=== PATIENT | male | born 1985 | race Caucasian/White ===

== ENCOUNTER 2017-03-05 15:06 | Emergency (ER) | payer SELFPAY ==
[2017-03-05 15:19] VITALS: BP 141/84; PULSE 114; RESP 17; TEMP 98.7
--- NOTE | 2017-03-05 15:52 | ED ---
ENT HPI - General Chief complaint: Dental/Oral Stated complaint: Dental Time Seen by Provider: 03/05/17 15:49 Source: patient, RN notes reviewed Mode of arrival: ambulatory Limitations: no limitations - History of Present Illness Initial comments: 31-year-old male present emergency department with chief complaint of dental pain. Patient states that he is up visiting his mother and had dental fracture. Patient states that he has an appointment with [facility] on Saturday. Patient denies any fevers or chills. No facial swelling. Patient has a sore throat no difficulty swallowing. - Related Data Home Medications Medication Instructions Recorded Confirmed Insulin Aspart [NovoLOG] 8 - 16 unit SQ TID 03/05/17 03/05/17 Insulin Degludec [Tresiba 28 unit SQ HS 03/05/17 03/05/17 Flextouch U-100] Previous Rx's Medication Instructions Recorded Hydrocodone/Acetaminophen [[place] 1 tab PO Q6HR PRN #15 tab 03/05/17 5-325] Penicillin V Potassium [Pen Vee K] 500 mg PO QID #40 tab 03/05/17 Allergies Allergy/AdvReac Type Severity Reaction Status Date / Time morphine Allergy Rash/Hives Verified 03/05/17 15:19 rofecoxib [From Vioxx] Allergy Unknown Verified 03/05/17 15:19 Review of Systems ROS Statement: Those systems with pertinent positive or pertinent negative responses have been documented in the HPI. ROS Other: All systems not noted in ROS Statement are negative. Past Medical History Past Medical History: Diabetes Mellitus Additional Past Medical History / Comment(s): type 1 History of Any Multi-Drug Resistant Organisms: None Reported Past Surgical History: Orthopedic Surgery Additional Past Surgical History / Comment(s): left knee Past Psychological History: No Psychological Hx Reported Smoking Status: Never smoker Past Alcohol Use History: None Reported Past Drug Use History: Marijuana General Exam Limitations: no limitations General appearance: alert, in no apparent distress Head exam: Present: atraumatic, normocephalic, normal inspection Eye exam: Present: normal appearance, PERRL, EOMI. Absent: scleral icterus, conjunctival injection, periorbital swelling ENT exam: Present: mucous membranes moist. Absent: normal exam, normal oropharynx (Dental fracture #2) Neck exam: Present: normal inspection. Absent: tenderness, meningismus, lymphadenopathy Respiratory exam: Present: normal lung sounds bilaterally. Absent: respiratory distress, wheezes, rales, rhonchi, stridor Cardiovascular Exam: Present: regular rate, normal rhythm, normal heart sounds. Absent: systolic murmur, diastolic murmur, rubs, gallop, clicks Course Vital Signs 03/05/17 15:16 Temperature 98.7 F Pulse Rate 114 H Respiratory 17 Rate Blood Pressure 141/84 O2 Sat by Pulse 97 Oximetry Disposition Clinical Impression: Fracture of tooth, Toothache Disposition: HOME SELF-CARE Condition: Stable Instructions: Toothache (ED) Additional Instructions: Please return to the Emergency Department if symptoms worsen or any other concerns. Prescriptions: Hydrocodone/Acetaminophen [[place] 5-325] 1 tab PO Q6HR PRN #15 tab PRN Reason: Pain Penicillin V Potassium [Pen Vee K] 500 mg PO QID #40 tab Referrals: None,Stated [Primary Care Provider] - 1-2 days Time of Disposition: 15:52
== END 2017-03-05 16:06 | disposition home or self-care (01) ==
LOC: EC 15:06
DX: S02.5XXA Fracture of tooth (traumatic), initial encounter for closed fracture (principal); E11.9 Type 2 diabetes mellitus without complications; Z79.4 Long term (current) use of insulin; Z88.5 Allergy status to narcotic agent; Z88.8 Allergy status to other drugs, medicaments and biological substances; X58.XXXA Exposure to other specified factors, initial encounter
CPT/HCPCS: 99282

== ENCOUNTER 2017-03-21 11:58 | Emergency (ER) | payer OTHER ==
[2017-03-21] MEDS ORDERED: SODIUM CHLORIDE 0.9% 1,000 ML IV STA ×2 (12:15)
--- NOTE | 2017-03-21 12:24 | ED ---
General Adult HPI - General Chief complaint: Urogenital Stated complaint: MALE Time Seen by Provider: 03/21/17 12:09 Source: patient, RN notes reviewed Mode of arrival: ambulatory Limitations: no limitations - History of Present Illness Initial comments: Patient is a 31-year-old male who presents emergency room today with a chief complaint of left-sided testicular pain over the last 3 days. Patient states he did have epididymitis once in the past but this does not feel similar to him. He states this started slowly and has gotten worse the last 2 days. States it was keeping him up last night. Patient admits that it is worse with certain movements and palpation. He also admits to being type I diabetic and states he did have some episodes of nausea vomiting is noticed that his blood sugar has been running high grade 400 this morning. Patient denies any other complaints at this time. He denies any chance for STD as he states he was tested 6 months ago was not having any sexual contacts since. Patient denies any recent fever, chills, shortness of breath, chest pain, back pain, abdominal pain, nausea or vomiting, numbness or tingling, dysuria or hematuria, constipation or diarrhea, headaches or visual changes, or any other complaints. - Related Data Home Medications Medication Instructions Recorded Confirmed Insulin Aspart [NovoLOG] See Protocol SQ TID 03/05/17 03/21/17 Insulin Degludec [Tresiba 28 unit SQ HS 03/05/17 03/21/17 Flextouch U-100] Acetaminophen Tab [Tylenol Tab] 325 mg PO ONCE 03/21/17 03/21/17 Ibuprofen [Motrin] 400 mg PO ONCE PRN 03/21/17 03/21/17 Zolpidem [Ambien] 10 mg PO HS PRN 03/21/17 03/21/17 Allergies Allergy/AdvReac Type Severity Reaction Status Date / Time morphine Allergy Rash/Hives Verified 03/21/17 12:56 rofecoxib [From Vioxx] Allergy Unknown Verified 03/21/17 12:56 acetaminophen AdvReac Rash/Hives Verified 03/21/17 12:56 [From Tylenol-Codeine #3] codeine AdvReac Rash/Hives Verified 03/21/17 12:56 [From Tylenol-Codeine #3] Review of Systems ROS Statement: Those systems with pertinent positive or pertinent negative responses have been documented in the HPI. ROS Other: All systems not noted in ROS Statement are negative. Past Medical History Past Medical History: Diabetes Mellitus Additional Past Medical History / Comment(s): type 1 History of Any Multi-Drug Resistant Organisms: None Reported Past Surgical History: Cholecystectomy, Orthopedic Surgery Additional Past Surgical History / Comment(s): left knee Past Psychological History: No Psychological Hx Reported Smoking Status: Never smoker Past Alcohol Use History: None Reported Past Drug Use History: Marijuana General Exam - General Exam Comments Initial Comments: General: The patient is awake and alert, in no distress, and does not appear acutely ill. Eye: Pupils are equal, round and reactive to light, extra-ocular movements are intact. No nystagmus. There is normal conjunctiva bilaterally. No signs of icterus. Ears, nose, mouth and throat: There are moist mucous membranes and no oral lesions. Neck: The neck is supple, there is no tenderness or JVD. Cardiovascular: There is a regular rate and rhythm. No murmur, rub or gallop is appreciated. Respiratory: Lungs are clear to auscultation, respirations are non-labored, breath sounds are equal. No wheezes, stridor, rales, or rhonchi. Gastrointestinal: Soft, non-distended, non-tender abdomen without masses or organomegaly noted. There is no rebound or guarding present. No CVA tenderness. Bowel sounds are unremarkable. Musculoskeletal: Normal ROM, no tenderness. Strength 5/5. Sensation intact. Pulses equal bilaterally 2+. Neurological: A&O x 3. CN II-XII intact, There are no obvious motor or sensory deficits. Coordination appears grossly intact. Speech is normal. Skin: Skin is warm and dry and no rashes or lesions are noted. Psychiatric: Cooperative, appropriate mood & affect, normal judgment. : Circumcised male. No obvious swelling. Tender on palpation to the left testicle. Negative Prehn's sign. Limitations: no limitations Course Vital Signs 03/21/17 03/21/17 03/21/17 12:04 13:00 14:06 Temperature 97.6 F Pulse Rate 110 H 88 77 Respiratory 18 20 18 Rate Blood Pressure 136/78 125/72 120/76 O2 Sat by Pulse 98 95 Oximetry Medical Decision Making - Medical Decision Making Patient reexamined at this time shows no signs of distress. His ultrasound is positive for hydrocele and varicocele. No evidence of torsion. Results were discussed with the patient. He denies any chance of having STD. Patient's blood work reviewed as stones negative. Patient did take his insulin prior to arrival in his blood sugar at this time is 92. Patient is advised continue Tylenol Motrin for pain and advised to follow-up with urology. Advised return if symptoms increase or worsen or for any other concerns. - Lab Data Result diagrams: 03/21/17 12:43 03/21/17 12:43 Lab Results 03/21/17 03/21/17 03/21/17 Range/Units 12:26 12:43 12:43 WBC 5.2 (3.8-10.6) k/uL RBC 4.91 (4.30-5.90) m/uL Hgb 14.3 (13.0-17.5) gm/dL Hct 44.9 (39.0-53.0) % MCV 91.5 (80.0-100.0) fL MCH 29.2 (25.0-35.0) pg MCHC 31.9 (31.0-37.0) g/dL RDW 13.4 (11.5-15.5) % Plt Count 250 (150-450) k/uL Neutrophils % 59 % Lymphocytes % 31 % Monocytes % 4 % Eosinophils % 3 % Basophils % 1 % Neutrophils # 3.1 (1.3-7.7) k/uL Lymphocytes # 1.6 (1.0-4.8) k/uL Monocytes # 0.2 (0-1.0) k/uL Eosinophils # 0.2 (0-0.7) k/uL Basophils # 0.0 (0-0.2) k/uL Sodium 135 L (137-145) mmol/L Potassium 4.8 (3.5-5.1) mmol/L Chloride 102 (98-107) mmol/L Carbon Dioxide 21 L (22-30) mmol/L Anion Gap 12 mmol/L BUN 14 (9-20) mg/dL Creatinine 0.76 (0.66-1.25) mg/dL Est GFR (MDRD) Af Amer >60 (>60 ml/min/1.73 sqM) Est GFR (MDRD) Non-Af >60 (>60 ml/min/1.73 sqM) Glucose 399 H (74-99) mg/dL POC Glucose (mg/dL) 392 H (75-99) mg/dL POC Glu Coal Handler ID Aby Trejo Calcium 9.6 (8.4-10.2) mg/dL Total Bilirubin 0.8 (0.2-1.3) mg/dL AST 25 (17-59) U/L ALT 23 (21-72) U/L Alkaline Phosphatase 82 (38-126) U/L Total Protein 7.2 (6.3-8.2) g/dL Albumin 4.3 (3.5-5.0) g/dL Urine Color Urine Appearance (Clear) Urine pH (5.0-8.0) Ur Specific [place] (1.001-1.035) Urine Protein (Negative) Urine Glucose (UA) (Negative) Urine Ketones (Negative) Urine Blood (Negative) Urine Nitrite (Negative) Urine Bilirubin (Negative) Urine Urobilinogen (<2.0) mg/dL Ur Leukocyte Esterase (Negative) Acetone, Qual Negative (Negative) 03/21/17 03/21/17 Range/Units 14:15 14:27 WBC (3.8-10.6) k/uL RBC (4.30-5.90) m/uL Hgb (13.0-17.5) gm/dL Hct (39.0-53.0) % MCV (80.0-100.0) fL MCH (25.0-35.0) pg MCHC (31.0-37.0) g/dL RDW (11.5-15.5) % Plt Count (150-450) k/uL Neutrophils % % Lymphocytes % % Monocytes % % Eosinophils % % Basophils % % Neutrophils # (1.3-7.7) k/uL Lymphocytes # (1.0-4.8) k/uL Monocytes # (0-1.0) k/uL Eosinophils # (0-0.7) k/uL Basophils # (0-0.2) k/uL Sodium (137-145) mmol/L Potassium (3.5-5.1) mmol/L Chloride (98-107) mmol/L Carbon Dioxide (22-30) mmol/L Anion Gap mmol/L BUN (9-20) mg/dL Creatinine (0.66-1.25) mg/dL Est GFR (MDRD) Af Amer (>60 ml/min/1.73 sqM) Est GFR (MDRD) Non-Af (>60 ml/min/1.73 sqM) Glucose (74-99) mg/dL POC Glucose (mg/dL) 92 (75-99) mg/dL POC Glu Coal Handler ID Diane Ng Calcium (8.4-10.2) mg/dL Total Bilirubin (0.2-1.3) mg/dL AST (17-59) U/L ALT (21-72) U/L Alkaline Phosphatase (38-126) U/L Total Protein (6.3-8.2) g/dL Albumin (3.5-5.0) g/dL Urine Color Light Yellow Urine Appearance Clear (Clear) Urine pH 5.5 (5.0-8.0) Ur Specific [place] 1.017 (1.001-1.035) Urine Protein Negative (Negative) Urine Glucose (UA) 4+ H (Negative) Urine Ketones Negative (Negative) Urine Blood Negative (Negative) Urine Nitrite Negative (Negative) Urine Bilirubin Negative (Negative) Urine Urobilinogen <2.0 (<2.0) mg/dL Ur Leukocyte Esterase Negative (Negative) Acetone, Qual (Negative) Disposition Clinical Impression: Abdominal pain Disposition: HOME SELF-CARE Condition: Good Instructions: Abdominal Pain (ED) Additional Instructions: Please use medication as discussed. Please follow-up with urologist/ family doctor in the next 2 days of symptoms have not improved. Please return to emergency room if the symptoms increase or worsen or for any other concerns. Referrals: None,Stated [Primary Care Provider] - 1-2 days Mumtaz Ambriz MD [STAFF PHYSICIAN] - 1-2 days Time of Disposition: 14:56
[2017-03-21 12:29] LABS: Glucose,Whole Blood 392 mg/dL (75-99)
[2017-03-21] MEDS ORDERED: HYDROmorphone 1 MG/ML 1 ML SYRINGE IVP STA (12:47)
[2017-03-21] MEDS ORDERED: ONDANSETRON 4 MG/2 ML VIAL IVP STA (12:47)
[2017-03-21 12:56] LABS: Basophils % (A) 1 %; CH 29.4; CHCM 32.3; Eosinophils # (A) 0.2 k/uL (0-0.7); Eosinophils % (A) 3 %; HCT 44.9 % (39.0-53.0); HGB 14.3 gm/dL (13.0-17.5); Luc # (Auto) 0.09; Luc % (Auto) 2; Lymphocytes # (A) 1.6 k/uL (1.0-4.8); Lymphocytes % (A) 31 %; MCH 29.2 pg (25.0-35.0); MCHC 31.9 g/dL (31.0-37.0); MCV 91.5 fL (80.0-100.0); Monocytes # (A) 0.2 k/uL (0-1.0); Monocytes % (A) 4 %; Neutrophils # (A) 3.1 k/uL (1.3-7.7); Neutrophils % (A) 59 %; RBC 4.91 m/uL (4.30-5.90); RDW 13.4 % (11.5-15.5); WBC 5.2 k/uL (3.8-10.6); WBC (Perox) 5.43
[2017-03-21 13:10] LABS: ALT 23 U/L (21-72); AST 25 U/L (17-59); Alkaline Phosphatase 82 U/L (38-126); Anion Gap 12 mmol/L; Blood Urea Nitrogen 14 mg/dL (9-20); Calcium 9.6 mg/dL (8.4-10.2); Carbon Dioxide 21 mmol/L (22-30); Chloride 102 mmol/L (98-107); Glucose 399 mg/dL (74-99); Non-African American GFR(MDRD) >60 (>60 ml/min/1.73 sqM); Potassium 4.8 mmol/L (3.5-5.1); Sodium 135 mmol/L (137-145); Total Bilirubin 0.8 mg/dL (0.2-1.3); Total Protein 7.2 g/dL (6.3-8.2)
--- NOTE | 2017-03-21 14:06 | US ---
EXAMINATION TYPE: US scrotum with doppler. Grayscale and color Doppler Duplex imaging performed of george snow scrotum. DATE OF EXAM: 03/21/2017 COMPARISON: NONE CLINICAL HISTORY: Pain. EXAM MEASUREMENTS: TESTICLES: Right Testicle: 4.8 x 2.5 x 3.3 cm Left Testicle: 4.7 x 2.6 x 3 cm EPIDIDYMIS HEAD: Right Epididymis: 1.3 cm Left Epididymis: 1.6 cm Doppler performed to assess for testicular vascularity; good bilateral color flow and waveforms are s een. There is no evidence of testicular torsion. Presence of hydroceles: Minimal bilateral hydroceles Presence of varicoceles: Minimal varicocele on the left at the lower pole Testicular echotexture is homogenous and symmetric. IMPRESSION: Testicular torsion is not evident. Follow-up as indicated.
[2017-03-21] MEDS ORDERED: KETOROLAC 30 MG/ML 1 ML VIAL IVP STA (14:23)
[2017-03-21 14:26] LABS: Appearance,Urine Clear (Clear); Bilirubin,Urine Negative (Negative); Glucose,Urine (UA) 4+ (Negative); Ketones,Urine Negative (Negative); Leukocyte Esterase,Urine Negative (Negative); Nitrite,Urine Negative (Negative); PH, Urine 5.5 (5.0-8.0); Protein,Urine Negative (Negative); Specific Gravity,Urine 1.017 (1.001-1.035); UA Billing (MACRO vs. MICRO) CHEM; Urobilinogen,Urine <2.0 mg/dL (<2.0)
[2017-03-21 14:32] LABS: Glucose,Whole Blood 92 mg/dL (75-99)
[2017-03-21 15:16] VITALS: TEMP 97.9
[2017-03-21 15:25] VITALS: BP 111/64; PULSE 73; RESP 16
== END 2017-03-21 15:26 | disposition home or self-care (01) ==
LOC: EC 11:58
DX: R10.9 Unspecified abdominal pain (principal); N50.812 Left testicular pain; R11.2 Nausea with vomiting, unspecified; E10.9 Type 1 diabetes mellitus without complications; Z79.4 Long term (current) use of insulin; Z88.5 Allergy status to narcotic agent; Z88.6 Allergy status to analgesic agent
CPT/HCPCS: 99284; 96374; 96375 ×2; 96361 ×3; 36415; 80053; 82009; 85025; 81003; 93975; 76870; J2405; J1885; J1170

== ENCOUNTER 2017-04-17 15:54 | Emergency (ER) | payer OTHER ==
[2017-04-17] MEDS ORDERED: METOCLOPRAMIDE 5 MG/ML 2 ML VIAL IVP STA (16:16)
[2017-04-17] MEDS ORDERED: SODIUM CHLORIDE 0.9% 1,000 ML IV STA (16:16)
[2017-04-17] MEDS ORDERED: KETOROLAC 30 MG/ML 1 ML VIAL IVP STA (16:16)
[2017-04-17] MEDS ORDERED: diphenhydrAMINE 50 MG/ML 1 ML VIAL IVP STA (16:16)
[2017-04-17 16:31] LABS: Glucose,Whole Blood 294 mg/dL (75-99)
[2017-04-17 16:51] VITALS: RESP 16
[2017-04-17 16:54] LABS: Basophils % (A) 1 %; CH 29.8; CHCM 33.8; Eosinophils # (A) 0.1 k/uL (0-0.7); Eosinophils % (A) 2 %; HCT 42.2 % (39.0-53.0); HDW 2.47; HGB 13.9 gm/dL (13.0-17.5); Luc # (Auto) 0.16; Luc % (Auto) 2; Lymphocytes % (A) 26 %; MCH 29.2 pg (25.0-35.0); MCV 88.6 fL (80.0-100.0); Monocytes # (A) 0.3 k/uL (0-1.0); Monocytes % (A) 4 %; Neutrophils % (A) 66 %; RBC 4.76 m/uL (4.30-5.90); RDW 13.8 % (11.5-15.5); WBC 7.6 k/uL (3.8-10.6); WBC (Perox) 7.35
[2017-04-17 17:00] LABS: Anion Gap 12 mmol/L; Blood Urea Nitrogen 16 mg/dL (9-20); Calcium 9.7 mg/dL (8.4-10.2); Carbon Dioxide 22 mmol/L (22-30); Chloride 104 mmol/L (98-107); Glucose 295 mg/dL (74-99); Magnesium 1.8 mg/dL (1.6-2.3); Non-African American GFR(MDRD) >60 (>60 ml/min/1.73 sqM); Potassium 4.8 mmol/L (3.5-5.1); Sodium 138 mmol/L (137-145)
[2017-04-17] MEDS ORDERED: MAGNESIUM SULFATE-D5W PMX 1 GM in DEXTROSE/WATER 1 100ML.BAG IVPB ONE (17:42)
--- NOTE | 2017-04-17 17:55 | ED ---
General Adult HPI - General Chief complaint: Headache Stated complaint: Headache Time Seen by Provider: 04/17/17 16:03 Source: patient, RN notes reviewed, old records reviewed Mode of arrival: ambulatory Limitations: no limitations - History of Present Illness Initial comments: 32 -year-old male with past medical history type 1 diabetes presents with a two- week history of headache. Patient describes the headache as throbbing in nature. Headache is frontal 8 out of 10. Patient did have a tooth pulled approximately 2 weeks ago on his lower jaw. Denies any change in appetite. Does report some mild nausea and dizziness but no vomiting. No photophobia. Patient woke with headache 2 weeks ago. It was gradual in onset. Has been waxing and waning since that time. Patient also reports some mild seasonal ALLERGIES which she also attributes to his headache. His been taking Tylenol and Motrin with minimal relief. Denies fever or chills. Denies chest pain or shortness of breath. Denies any head trauma. - Related Data Home Medications Medication Instructions Recorded Confirmed Insulin Aspart [NovoLOG] See Protocol SQ TID 03/05/17 04/17/17 Zolpidem [Ambien] 10 mg PO HS PRN 03/21/17 04/17/17 Insulin Glargine,Hum.rec.anlog 30 unit SQ HS 04/17/17 04/17/17 [Lantus Solostar] Previous Rx's Medication Instructions Recorded HYDROcodone/APAP 5-325MG [[place] 1 tab PO Q6HR PRN #12 tab 04/17/17 5-325] Ibuprofen [Motrin] 600 mg PO Q8HR PRN #24 tab 04/17/17 Allergies Allergy/AdvReac Type Severity Reaction Status Date / Time morphine Allergy Rash/Hives Verified 04/17/17 15:58 rofecoxib [From Vioxx] Allergy Unknown Verified 04/17/17 15:58 acetaminophen AdvReac Rash/Hives Verified 04/17/17 15:58 [From Tylenol-Codeine #3] codeine AdvReac Rash/Hives Verified 04/17/17 15:58 [From Tylenol-Codeine #3] Review of Systems ROS Statement: Those systems with pertinent positive or pertinent negative responses have been documented in the HPI. ROS Other: All systems not noted in ROS Statement are negative. Eyes: Denies: vision change ENT: Reports: dental pain (Patient had left lower tooth extraction approximately 2 weeks.) Respiratory: Denies: cough Cardiovascular: Denies: chest pain Gastrointestinal: Reports: nausea. Denies: vomiting Neurological: Reports: headache. Denies: paresthesias Past Medical History Past Medical History: Diabetes Mellitus Additional Past Medical History / Comment(s): type 1 History of Any Multi-Drug Resistant Organisms: None Reported Past Surgical History: Cholecystectomy, Orthopedic Surgery Additional Past Surgical History / Comment(s): left knee Past Psychological History: No Psychological Hx Reported Smoking Status: Never smoker Past Alcohol Use History: None Reported Past Drug Use History: Marijuana General Exam Limitations: no limitations General appearance: alert, in no apparent distress Head exam: Present: atraumatic, normocephalic, normal inspection Eye exam: Present: normal appearance, PERRL, EOMI, other. Absent: scleral icterus, nystagmus Pupils: Present: normal accommodation ENT exam: Present: normal exam, mucous membranes dry Neck exam: Present: full ROM. Absent: meningismus Respiratory exam: Present: normal lung sounds bilaterally. Absent: respiratory distress, wheezes Cardiovascular Exam: Present: regular rate, normal rhythm GI/Abdominal exam: Present: soft. Absent: distended, tenderness Neurological exam: Present: alert, oriented X3, CN II-XII intact, other (No focal neurological deficits. Funduscopic examination is negative for papilledema). Absent: motor sensory deficit Psychiatric exam: Present: normal affect, normal mood Skin exam: Present: warm, dry Course Vital Signs 04/17/17 04/17/17 15:55 16:49 Temperature 98.4 F Pulse Rate 91 71 Respiratory 18 16 Rate Blood Pressure 120/75 129/77 O2 Sat by Pulse 97 98 Oximetry - Reevaluation(s) Reevaluation #1: 04/17/17 17:49 Patient was reevaluated at 1740. He states his headache is somewhat improved however it is still present. Only mild improvement in symptoms and two-week duration CT head is ordered for further evaluation of headaches. Reevaluation #2: 04/17/17 19:05 Patient is reevaluated at 1905, head CT results were discussed with the patient. He is feeling somewhat better. Medical Decision Making - Medical Decision Making 32-year-old male with past medical history of type 1 diabetes presenting with history of headache. Patient's headache has been waxing and waning over the past 2 weeks but has never been completely resolved. Patient reports a gradual onset in intensity. It is frontal in nature and throbbing. He does have a positive family history of migraines but has never been diagnosed with migraines himself. He has had occasional headaches in the past but this was worse and lasted longer than those headaches. Patient is very well-appearing on examination, neurological examination is nonfocal. He is given IV antibiotics, Benadryl, Toradol and IV fluids. On reevaluation his headache is somewhat improved although not completely resolved. Laboratory studies are reviewed and are significant only for mild hyperglycemia which is treated with IV fluids. Head CT is negative for intracranial process. Patient will be given both a primary care and neurology follow-up. He is instructed to return the emergency Department with worsening symptoms, including worsening nausea and vomiting, photophobia, sudden abrupt change in his headache. Diagnosis: Headache Disposition: Home with outpatient follow-up - Lab Data Result diagrams: 04/17/17 16:30 04/17/17 16:30 Lab Results 04/17/17 04/17/17 04/17/17 Range/Units 16:25 16:30 16:30 WBC 7.6 (3.8-10.6) k/uL RBC 4.76 (4.30-5.90) m/uL Hgb 13.9 (13.0-17.5) gm/dL Hct 42.2 (39.0-53.0) % MCV 88.6 (80.0-100.0) fL MCH 29.2 (25.0-35.0) pg MCHC 33.0 (31.0-37.0) g/dL RDW 13.8 (11.5-15.5) % Plt Count 266 (150-450) k/uL Neutrophils % 66 % Lymphocytes % 26 % Monocytes % 4 % Eosinophils % 2 % Basophils % 1 % Neutrophils # 5.0 (1.3-7.7) k/uL Lymphocytes # 2.0 (1.0-4.8) k/uL Monocytes # 0.3 (0-1.0) k/uL Eosinophils # 0.1 (0-0.7) k/uL Basophils # 0.0 (0-0.2) k/uL Sodium 138 (137-145) mmol/L Potassium 4.8 (3.5-5.1) mmol/L Chloride 104 (98-107) mmol/L Carbon Dioxide 22 (22-30) mmol/L Anion Gap 12 mmol/L BUN 16 (9-20) mg/dL Creatinine 0.70 (0.66-1.25) mg/dL Est GFR (MDRD) Af Amer >60 (>60 ml/min/1.73 sqM) Est GFR (MDRD) Non-Af >60 (>60 ml/min/1.73 sqM) Glucose 295 H (74-99) mg/dL POC Glucose (mg/dL) 294 H (75-99) mg/dL POC Glu Internal Audit Consultant ID Kaitlyn Donohue Calcium 9.7 (8.4-10.2) mg/dL Magnesium 1.8 (1.6-2.3) mg/dL Disposition Clinical Impression: Headache Disposition: HOME SELF-CARE Condition: Good Instructions: Acute Headache (ED) Additional Instructions: Patient will return to the emergency department with worsening symptoms. Prescriptions: HYDROcodone/APAP 5-325MG [[place] 5-325] 1 tab PO Q6HR PRN #12 tab PRN Reason: Pain Ibuprofen [Motrin] 600 mg PO Q8HR PRN #24 tab PRN Reason: Pain Referrals: None,Stated [Primary Care Provider] - 1-2 days Kristel Tejada MD [STAFF PHYSICIAN] - 1-2 days Nikole Tan MD [STAFF PHYSICIAN] - 1-2 days Time of Disposition: 19:00
--- NOTE | 2017-04-17 18:13 | CT ---
EXAMINATION TYPE: CT brain wo con DATE OF EXAM: 04/17/2017 COMPARISON: NONE HISTORY: Patient complains of headache x3 weeks. CT DLP: 1121 mGycm. Automated Exposure Control for Dose Reduction was Utilized. TECHNIQUE: CT scan of the head is performed without contrast. FINDINGS: The ventricles and sulci appear normal. There is no mass effect nor midline shift. There is no sign of intracranial hemorrhage. The calvarium is intact. IMPRESSION: Negative unenhanced head CT scan.
[2017-04-17 19:13] VITALS: BP 132/72; PULSE 73; TEMP 98.2
== END 2017-04-17 19:42 | disposition home or self-care (01) ==
LOC: EC 15:54
DX: E10.65 Type 1 diabetes mellitus with hyperglycemia (principal); R11.0 Nausea; R51 Headache; R42 Dizziness and giddiness; Z79.4 Long term (current) use of insulin; Z88.5 Allergy status to narcotic agent; Z88.8 Allergy status to other drugs, medicaments and biological substances; Z82.0 Family history of epilepsy and other diseases of the nervous system
CPT/HCPCS: 99284 ×2; 96365 ×2; 96375 ×4; 96361 ×3; 36415; 80048; 83735; 85025; 70450; J1200; J2765; J1885; J3475

== ENCOUNTER 2017-04-18 14:11 | Inpatient (IN) | payer OTHER ==
[2017-04-18 16:02] LABS: Glucose,Whole Blood >600 mg/dL (75-99)
[2017-04-18] MEDS ORDERED: KETOROLAC 30 MG/ML 1 ML VIAL IVP STA (16:03)
[2017-04-18] MEDS ORDERED: SODIUM CHLORIDE 0.9% 2,000 ML IV STA (16:03)
[2017-04-18] MEDS ORDERED: PROMETHAZINE INJ 25 MG/ML 1 ML VIAL IV STA (16:03)
--- NOTE | 2017-04-18 16:38 | ED ---
General Adult HPI - General Source: patient, RN notes reviewed Mode of arrival: ambulatory Limitations: no limitations <Kaela Rivera - Last Filed: 04/18/17 18:43> <Rich Saenz - Last Filed: 04/18/17 18:45> - General Chief complaint: Recheck/Abnormal Lab/Rx Stated complaint: Blood Suger High/Diabetic/vomiting Time Seen by Provider: 04/18/17 15:54 - History of Present Illness Initial comments: 32-year-old male presents to the emergency department with a chief complaint of hyperglycemia. At this time patient states that he was here last night for headache. Patient states that today he woke up and started vomiting and he has noticed elevated glucose levels. Patient denies any fever chills with this. Patient states that his sugar has been high the rest the days and unable to control it. Patient states type I diabetic. Patient states that he was concerned due to his symptoms without that he should be evaluated. Patient states headache is in the front of his head and throbbing.Patient denies any recent fever, chills, shortness of breath, chest pain, back pain, abdominal pain , numbness or tingling, dysuria or hematuria, constipation or diarrhea, visual changes, or any other current symptoms. (Kaela Rivera) - Related Data Home Medications Medication Instructions Recorded Confirmed Insulin Aspart [NovoLOG] See Protocol SQ TID 03/05/17 04/18/17 Zolpidem [Ambien] 10 mg PO HS PRN 03/21/17 04/18/17 Insulin Glargine,Hum.rec.anlog 30 unit SQ HS 04/17/17 04/18/17 [Lantus Solostar] Previous Rx's Medication Instructions Recorded HYDROcodone/APAP 5-325MG [[place] 1 tab PO Q6HR PRN #12 tab 04/17/17 5-325] Ibuprofen [Motrin] 600 mg PO Q8HR PRN #24 tab 04/17/17 Allergies Allergy/AdvReac Type Severity Reaction Status Date / Time morphine Allergy Rash/Hives Verified 04/18/17 15:06 rofecoxib [From Vioxx] Allergy Unknown Verified 04/18/17 15:06 acetaminophen AdvReac Rash/Hives Verified 04/18/17 15:06 [From Tylenol-Codeine #3] codeine AdvReac Rash/Hives Verified 04/18/17 15:06 [From Tylenol-Codeine #3] Review of Systems ROS Other: All systems not noted in ROS Statement are negative. <Kaela Rivera - Last Filed: 04/18/17 18:43> ROS Other: All systems not noted in ROS Statement are negative. <Rich Saenz - Last Filed: 04/18/17 18:45> ROS Statement: Those systems with pertinent positive or pertinent negative responses have been documented in the HPI. Past Medical History Past Medical History: Diabetes Mellitus Additional Past Medical History / Comment(s): type 1 History of Any Multi-Drug Resistant Organisms: None Reported Past Surgical History: Cholecystectomy, Orthopedic Surgery Additional Past Surgical History / Comment(s): left knee x6 Past Psychological History: No Psychological Hx Reported Smoking Status: Never smoker Past Alcohol Use History: None Reported Past Drug Use History: Marijuana <Kaela Rivera - Last Filed: 04/18/17 18:43> General Exam Limitations: no limitations <Kaela Rivera - Last Filed: 04/18/17 18:43> <Rich Saenz - Last Filed: 04/18/17 18:45> - General Exam Comments Initial Comments: General: The patient is awake and alert, in no distress, and does not appear acutely ill. Eye: Pupils are equal, round and reactive to light, extra-ocular movements are intact; there is normal conjunctiva bilaterally. No signs of icterus. Ears, nose, mouth and throat: There are moist mucous membranes. Neck: The neck is supple, there is no tenderness. Cardiovascular: There is a regular rate and rhythm. No murmur, rub or gallop is appreciated. Respiratory: Lungs are clear to auscultation, respirations are non-labored, breath sounds are equal. No wheezes, stridor, rales, or rhonchi. Gastrointestinal: Soft, non-distended, non-tender abdomen without masses or organomegaly noted. There is no rebound or guarding present. No CVA tenderness. Bowel sounds are unremarkable. Back: There is no tenderness to palpation in the midline. There is no obvious deformity. No rashes noted. Musculoskeletal: Normal ROM, no tenderness, There is no pedal edema. There is no calf tenderness or swelling. Sensation intact. Pulses equal bilaterally 2+. Neurological: CN II-XII intact, There are no obvious motor or sensory deficits. Coordination appears grossly intact. Speech is normal. Skin: Skin is warm and dry and no rashes or lesions are noted. Psychiatric: Cooperative, appropriate mood & affect, normal judgment. (Kaela Rivera) EKG Findings - EKG Comments: EKG Findings:: Sinus bradycardia with sinus arrhythmia 59 bpm, normal axis, no atopy, no S-T depressions or elevations, <Kaela Rivera - Last Filed: 04/18/17 18:43> Medical Decision Making - Lab Data Result diagrams: 04/18/17 16:15 04/18/17 18:05 <Kaela Rivera - Last Filed: 04/18/17 18:43> - Lab Data Result diagrams: 04/18/17 16:15 04/18/17 18:05 <Rich Saenz - Last Filed: 04/18/17 18:45> - Medical Decision Making 32-year-old male presents emergency Department chief complaint of hyperglycemia. This time patient's blood work has been reviewed. Patient is found to be hyperkalemic at this time which is most likely due to the fact that it was hemolyzed. We will send a repeat. This time patient does appear to be in DKA we will start patient on an insulin drip. We did discuss this with the patient who is in agreement with this plan. All questions have been answered. He will be admitted to Dr. Whalen. After discussing the case with the nurse practitioner miri. (Kaela Rivera) Patient reexamined by myself, Dr. Saenz. Patient states he is having a headache recently. Patient states vomiting started today. Patient has been in DKA previously however not in a long time. Patient was updated on results and plan. Results reviewed. (Rich Saenz) - Lab Data Lab Results 04/18/17 04/18/17 04/18/17 Range/Units 15:58 16:15 16:15 WBC 5.9 (3.8-10.6) k/uL RBC 4.92 (4.30-5.90) m/uL Hgb 14.8 (13.0-17.5) gm/dL Hct 44.2 (39.0-53.0) % MCV 89.9 (80.0-100.0) fL MCH 30.1 (25.0-35.0) pg MCHC 33.5 (31.0-37.0) g/dL RDW 13.4 (11.5-15.5) % Plt Count 250 (150-450) k/uL Neutrophils % 64 % Lymphocytes % 27 % Monocytes % 4 % Eosinophils % 2 % Basophils % 0 % Neutrophils # 3.8 (1.3-7.7) k/uL Lymphocytes # 1.6 (1.0-4.8) k/uL Monocytes # 0.2 (0-1.0) k/uL Eosinophils # 0.1 (0-0.7) k/uL Basophils # 0.0 (0-0.2) k/uL Sodium 123 L (137-145) mmol/L Potassium 6.6 H* (3.5-5.1) mmol/L Chloride 91 L (98-107) mmol/L Carbon Dioxide 18 L (22-30) mmol/L Anion Gap 14 mmol/L BUN 17 (9-20) mg/dL Creatinine 0.73 (0.66-1.25) mg/dL Est GFR (MDRD) Af Amer >60 (>60 ml/min/1.73 sqM) Est GFR (MDRD) Non-Af >60 (>60 ml/min/1.73 sqM) Glucose 725 H* (74-99) mg/dL POC Glucose (mg/dL) >600 H (75-99) mg/dL POC Glu Warehouse Man ID Paige, Evelyn Calcium 9.3 (8.4-10.2) mg/dL Phosphorus 4.2 (2.5-4.5) mg/dL Magnesium 1.9 (1.6-2.3) mg/dL Total Bilirubin 1.9 H (0.2-1.3) mg/dL AST 46 (17-59) U/L ALT 24 (21-72) U/L Alkaline Phosphatase 116 (38-126) U/L Total Protein 7.9 (6.3-8.2) g/dL Albumin 4.7 (3.5-5.0) g/dL Amylase 50 (30-110) U/L Lipase 63 (23-300) U/L Urine Color Urine Appearance (Clear) Urine pH (5.0-8.0) Ur Specific [place] (1.001-1.035) Urine Protein (Negative) Urine Glucose (UA) (Negative) Urine Ketones (Negative) Urine Blood (Negative) Urine Nitrite (Negative) Urine Bilirubin (Negative) Urine Urobilinogen (<2.0) mg/dL Ur Leukocyte Esterase (Negative) Acetone, Qual Positive (Negative) 04/18/17 04/18/17 04/18/17 Range/Units 16:15 18:05 18:38 WBC (3.8-10.6) k/uL RBC (4.30-5.90) m/uL Hgb (13.0-17.5) gm/dL Hct (39.0-53.0) % MCV (80.0-100.0) fL MCH (25.0-35.0) pg MCHC (31.0-37.0) g/dL RDW (11.5-15.5) % Plt Count (150-450) k/uL Neutrophils % % Lymphocytes % % Monocytes % % Eosinophils % % Basophils % % Neutrophils # (1.3-7.7) k/uL Lymphocytes # (1.0-4.8) k/uL Monocytes # (0-1.0) k/uL Eosinophils # (0-0.7) k/uL Basophils # (0-0.2) k/uL Sodium (137-145) mmol/L Potassium 5.3 H (3.5-5.1) mmol/L Chloride (98-107) mmol/L Carbon Dioxide (22-30) mmol/L Anion Gap mmol/L BUN (9-20) mg/dL Creatinine (0.66-1.25) mg/dL Est GFR (MDRD) Af Amer (>60 ml/min/1.73 sqM) Est GFR (MDRD) Non-Af (>60 ml/min/1.73 sqM) Glucose (74-99) mg/dL POC Glucose (mg/dL) 523 H (75-99) mg/dL POC Glu Warehouse Man ID Karla Llamas Calcium (8.4-10.2) mg/dL Phosphorus (2.5-4.5) mg/dL Magnesium (1.6-2.3) mg/dL Total Bilirubin (0.2-1.3) mg/dL AST (17-59) U/L ALT (21-72) U/L Alkaline Phosphatase (38-126) U/L Total Protein (6.3-8.2) g/dL Albumin (3.5-5.0) g/dL Amylase (30-110) U/L Lipase (23-300) U/L Urine Color Colorless Urine Appearance Clear (Clear) Urine pH 6.0 (5.0-8.0) Ur Specific [place] 1.017 (1.001-1.035) Urine Protein Negative (Negative) Urine Glucose (UA) 4+ H (Negative) Urine Ketones 1+ H (Negative) Urine Blood Negative (Negative) Urine Nitrite Negative (Negative) Urine Bilirubin Negative (Negative) Urine Urobilinogen <2.0 (<2.0) mg/dL Ur Leukocyte Esterase Negative (Negative) Acetone, Qual (Negative) Disposition Time of Disposition: 17:31 Decision Date: 04/18/17 Decision Time: 17:31 <Kaela Rivera - Last Filed: 04/18/17 18:43> <Rich Saenz - Last Filed: 04/18/17 18:45> Clinical Impression: DKA (diabetic ketoacidoses), Hyponatremia Disposition: ADMITTED IP TO THIS [facility] Condition: Stable Referrals: None,Stated [Primary Care Provider] - 1-2 days
[2017-04-18 17:04] LABS: Appearance,Urine Clear (Clear); Bilirubin,Urine Negative (Negative); Glucose,Urine (UA) 4+ (Negative); Ketones,Urine 1+ (Negative); Leukocyte Esterase,Urine Negative (Negative); Nitrite,Urine Negative (Negative); Protein,Urine Negative (Negative); Specific Gravity,Urine 1.017 (1.001-1.035); UA Billing (MACRO vs. MICRO) CHEM; Urobilinogen,Urine <2.0 mg/dL (<2.0)
[2017-04-18 17:12] LABS: ALT 24 U/L (21-72); AST 46 U/L (17-59); Alkaline Phosphatase 116 U/L (38-126); Amylase 50 U/L (30-110); Anion Gap 14 mmol/L; Blood Urea Nitrogen 17 mg/dL (9-20); Calcium 9.3 mg/dL (8.4-10.2); Carbon Dioxide 18 mmol/L (22-30); Chloride 91 mmol/L (98-107); Magnesium 1.9 mg/dL (1.6-2.3); Non-African American GFR(MDRD) >60 (>60 ml/min/1.73 sqM); Phosphorous 4.2 mg/dL (2.5-4.5); Sodium 123 mmol/L (137-145); Total Bilirubin 1.9 mg/dL (0.2-1.3); Total Protein 7.9 g/dL (6.3-8.2)
[2017-04-18 17:14] LABS: Basophils % (A) 0 %; CHCM 32.4; Eosinophils # (A) 0.1 k/uL (0-0.7); Eosinophils % (A) 2 %; HCT 44.2 % (39.0-53.0); HDW 2.53; HGB 14.8 gm/dL (13.0-17.5); Luc # (Auto) 0.17; Luc % (Auto) 3; Lymphocytes # (A) 1.6 k/uL (1.0-4.8); Lymphocytes % (A) 27 %; MCH 30.1 pg (25.0-35.0); MCHC 33.5 g/dL (31.0-37.0); MCV 89.9 fL (80.0-100.0); Mean Platelet Volume 7.6; Monocytes # (A) 0.2 k/uL (0-1.0); Monocytes % (A) 4 %; Neutrophils # (A) 3.8 k/uL (1.3-7.7); Neutrophils % (A) 64 %; RBC 4.92 m/uL (4.30-5.90); RDW 13.4 % (11.5-15.5); WBC 5.9 k/uL (3.8-10.6); WBC (Perox) 5.87
[2017-04-18 17:21] LABS: Glucose 725 mg/dL (74-99)
[2017-04-18 17:22] LABS: Potassium 6.6 mmol/L (3.5-5.1)
[2017-04-18] MEDS ORDERED: INSULIN REGULAR BOLUS (FROM DRIP BAG) IV ONE (17:32)
[2017-04-18] MEDS ORDERED: IBUPROFEN 600 MG TAB PO PRN (17:33)
[2017-04-18] MEDS ORDERED: SODIUM CHLORIDE 0.9% 1,000 ML IV SCH (17:45)
[2017-04-18 18:39] LABS: Glucose,Whole Blood 523 mg/dL (75-99)
[2017-04-18] MEDS: INSULIN REGULAR 100 UNIT in SODIUM CHLORIDE 0.9% 100 ML IV SCH (18:44)
[2017-04-18] MEDS: HYDROcodone/APAP 5-325MG 1 EACH TAB PO PRN (19:07)
[2017-04-18 19:42] LABS: Glucose,Whole Blood 304 mg/dL (75-99)
[2017-04-18 20:48] LABS: Glucose,Whole Blood 139 mg/dL (75-99)
[2017-04-18 20:53] LABS: Anion Gap 19 mmol/L; Blood Urea Nitrogen 15 mg/dL (9-20); Carbon Dioxide 14 mmol/L (22-30); Chloride 102 mmol/L (98-107); Glucose 211 mg/dL (74-99); Non-African American GFR(MDRD) >60 (>60 ml/min/1.73 sqM); Phosphorous 1.9 mg/dL (2.5-4.5); Potassium 3.8 mmol/L (3.5-5.1); Sodium 135 mmol/L (137-145)
[2017-04-18] MEDS ORDERED: ZOLPIDEM 10 MG TAB PO PRN (21:00)
[2017-04-18 21:50] LABS: Glucose,Whole Blood 93 mg/dL (75-99)
[2017-04-18] MEDS: D5-0.45% NACL WITH KCL 20MEQ/L 1,000 ML IV SCH (22:01)
[2017-04-18] MEDS: PANTOPRAZOLE 40 MG/10 ML VIAL IVP SCH (22:02)
[2017-04-18] MEDS: PROMETHAZINE INJ 25 MG/ML 1 ML VIAL IM PRN (22:09)
[2017-04-18 22:26] LABS: Glucose,Whole Blood 86 mg/dL (75-99)
[2017-04-18 23:00] LABS: Glucose,Whole Blood 151 mg/dL (75-99)
[2017-04-19 00:02] LABS: Glucose,Whole Blood 109 mg/dL (75-99)
[2017-04-19 00:28] LABS: Anion Gap 11 mmol/L; Blood Urea Nitrogen 14 mg/dL (9-20); Carbon Dioxide 23 mmol/L (22-30); Chloride 103 mmol/L (98-107); Glucose 94 mg/dL (74-99); Non-African American GFR(MDRD) >60 (>60 ml/min/1.73 sqM); Potassium 4.1 mmol/L (3.5-5.1); Sodium 137 mmol/L (137-145)
[2017-04-19] MEDS: HYDROcodone/APAP 5-325MG 1 EACH TAB PO PRN ×3 (00:56→16:00)
[2017-04-19 00:57] LABS: Glucose,Whole Blood 119 mg/dL (75-99)
[2017-04-19 01:59] LABS: Glucose,Whole Blood 135 mg/dL (75-99)
[2017-04-19 03:19] LABS: Glucose,Whole Blood 132 mg/dL (75-99)
[2017-04-19] MEDS: D5-0.45% NACL WITH KCL 20MEQ/L 1,000 ML IV SCH ×2 (03:21→09:21)
[2017-04-19 05:15] LABS: Glucose,Whole Blood 165 mg/dL (75-99)
[2017-04-19 05:32] LABS: Glucose,Whole Blood 144 mg/dL (75-99)
[2017-04-19 06:08] LABS: Glucose,Whole Blood 232 mg/dL (75-99)
[2017-04-19 07:21] LABS: Glucose,Whole Blood 344 mg/dL (75-99)
[2017-04-19 07:38] LABS: ALT 32 U/L (21-72); AST 22 U/L (17-59); Alkaline Phosphatase 92 U/L (38-126); Anion Gap 11 mmol/L; Blood Urea Nitrogen 12 mg/dL (9-20); Calcium 8.4 mg/dL (8.4-10.2); Carbon Dioxide 19 mmol/L (22-30); Chloride 104 mmol/L (98-107); Glucose 343 mg/dL (74-99); Non-African American GFR(MDRD) >60 (>60 ml/min/1.73 sqM); Potassium 4.9 mmol/L (3.5-5.1); Sodium 134 mmol/L (137-145); Total Bilirubin 0.8 mg/dL (0.2-1.3); Total Protein 6.1 g/dL (6.3-8.2)
[2017-04-19 07:48] VITALS: RESP 18
[2017-04-19 08:02] LABS: Glucose,Whole Blood 303 mg/dL (75-99)
[2017-04-19 09:05] LABS: Glucose,Whole Blood 197 mg/dL (75-99)
[2017-04-19] MEDS: PROMETHAZINE INJ 25 MG/ML 1 ML VIAL IM PRN ×2 (09:20→17:49)
[2017-04-19] MEDS: PANTOPRAZOLE 40 MG/10 ML VIAL IVP SCH (09:22)
[2017-04-19 10:13] LABS: Glucose,Whole Blood 132 mg/dL (75-99)
[2017-04-19 10:32] LABS: Hemoglobin A1C 9.6 % (4.2-6.1)
[2017-04-19] MEDS ORDERED: BUTALB/APAP/CAFF 50-325-40MG TAB PO PRN (11:11)
[2017-04-19] MEDS ORDERED: BUTA/APAP/CAF/COD 50-325-40-30 CAP PO PRN (11:15)
[2017-04-19] MEDS ORDERED: INSULIN GLARGINE 100 UNIT/ML 10 ML VIAL SQ STA (11:20)
[2017-04-19 11:29] LABS: Glucose,Whole Blood 108 mg/dL (75-99)
[2017-04-19 11:29] LABS: Phosphorous 3.6 mg/dL (2.5-4.5)
[2017-04-19] MEDS ORDERED: SODIUM CHLORIDE 0.9% 1,000 ML IV SCH (11:30)
[2017-04-19 11:41] VITALS: BMI 22.8
[2017-04-19 12:13] LABS: Glucose,Whole Blood 94 mg/dL (75-99)
[2017-04-19] MEDS: INSULIN LISPRO (humaLOG) 300 UNIT/3 ML VIAL SQ SCH ×2 (13:23→17:46)
[2017-04-19] MEDS: INSULIN REGULAR 100 UNIT in SODIUM CHLORIDE 0.9% 100 ML IV SCH (13:29)
[2017-04-19 13:55] VITALS: PULSE 75
[2017-04-19 16:29] LABS: Glucose,Whole Blood 95 mg/dL (75-99)
[2017-04-19 16:57] VITALS: BP 118/70; TEMP 96.4
[2017-04-19 19:24] LABS: Hemoglobin A1C 9.6 % (4.2-6.1)
[2017-04-19] MEDS ORDERED: INSULIN GLARGINE 100 UNIT/ML 10 ML VIAL SQ SCH (21:00)
[2017-04-20] MEDS ORDERED: PANTOPRAZOLE 40 MG TABLET PO SCH (09:00)
--- NOTE | 2017-04-20 17:30 | P.DS ---
Providers Date of admission: 04/18/17 18:46 Attending physician: Feng Cedillo Primary care physician: Stated None Hospital Course: Please refer to HPI Patient Condition at Discharge: Stable Plan - Discharge Summary New Discharge Prescriptions: New Butalbit/Acetamin/Caff/Codeine [Fioricet-Cod 87-950-57-30 Cap] 1 - 2 cap PO Q4HR #20 cap Discontinued HYDROcodone/APAP 5-325MG [[place] 5-325] 1 tab PO Q6HR PRN #12 tab PRN Reason: Pain No Action Insulin Aspart [NovoLOG] See Protocol SQ TID Zolpidem [Ambien] 10 mg PO HS PRN PRN Reason: Insomnia Insulin Glargine,Hum.rec.anlog [Lantus Solostar] 30 unit SQ HS Ibuprofen [Motrin] 600 mg PO Q8HR PRN #24 tab PRN Reason: Pain Discharge Medication List Insulin Aspart [NovoLOG] See Protocol SQ TID 03/05/17 [History] Zolpidem [Ambien] 10 mg PO HS PRN 03/21/17 [History] Ibuprofen [Motrin] 600 mg PO Q8HR PRN #24 tab 04/17/17 [Rx] Insulin Glargine,Hum.rec.anlog [Lantus Solostar] 30 unit SQ HS 04/17/17 [History ] Butalbit/Acetamin/Caff/Codeine [Fioricet-Cod 24-049-60-30 Cap] 1 - 2 cap PO Q4HR #20 cap 04/19/17 [Rx] Follow up Appointment(s)/Referral(s): Sathya Choe MD [STAFF PHYSICIAN] - 1 Week None,Stated [Primary Care Provider] - 1-2 days Discharge Disposition: HOME SELF-CARE
--- NOTE | 2017-04-20 17:30 | P.HPIM ---
History of Present Illness H&P Date: 04/19/17 32-year-old male presents to the emergency department with a chief complaint of hyperglycemia. Found to be in DKA patient was started on DKA protocol with IV insulin with improved anion gap and patient was subsequently switched to subcutaneous insulin patient does do carb counting pre-meal insulin. Patient does not have any fever, chills, does not have any other signs or symptoms of sepsis. Patient denied any photophobia but had does have headache headache symptoms are not consistent with any primary headache syndromes patient has constant throbbing headache in the forehead without any improvement but later improved with Fioricet and patient will be discharged on Fioricet and follow up with neurology as an outpatient. Age and is requesting IV opiates for headache At this time patient states that he was here last night for headache. Patient states that today he woke up and started vomiting and he has noticed elevated glucose levels Patient states type I diabetic. Patient states that he was concerned due to his symptoms without that he should be evaluated. Patient states headache is in the front of his head and throbbing Review of Systems REVIEW OF SYSTEMS: CONSTITUTIONAL: No fever, no malaise, no fatigue. HEENT: No recent visual problems or hearing problems. Denied any sore throat. CARDIOVASCULAR: No chest pain, orthopnea, PND, no palpitations, no syncope. PULMONARY: No shortness of breath, no cough, no hemoptysis. GASTROINTESTINAL: No diarrhea, , no abdominal pain. Normoactive bowel sounds. NEUROLOGICAL: no weakness, no numbness. HEMATOLOGICAL: Denies any bleeding or petechiae. GENITOURINARY: Denies any burning micturition, frequency, or urgency. MUSCULOSKELETAL/RHEUMATOLOGICAL: Denies any joint pain, swelling, or any muscle pain. ENDOCRINE: Denies any polyuria or polydipsia. The rest of the 14-point review of systems is negative. Past Medical History Past Medical History: Diabetes Mellitus Additional Past Medical History / Comment(s): type 1 History of Any Multi-Drug Resistant Organisms: None Reported Past Surgical History: Cholecystectomy, Orthopedic Surgery Additional Past Surgical History / Comment(s): left knee x6 Past Anesthesia/Blood Transfusion Reactions: No Reported Reaction Past Psychological History: No Psychological Hx Reported Smoking Status: Never smoker Past Alcohol Use History: None Reported Past Drug Use History: Marijuana - Past Family History Sister(s) Family Medical History: Cancer Brother(s) Family Medical History: Cancer Medications and Allergies Home Medications Medication Instructions Recorded Confirmed Type Insulin Aspart [NovoLOG] See Protocol SQ TID 03/05/17 04/18/17 History Zolpidem [Ambien] 10 mg PO HS PRN 03/21/17 04/18/17 History Insulin Glargine,Hum.rec.anlog 30 unit SQ HS 04/17/17 04/18/17 History [Lantus Solostar] Allergies Allergy/AdvReac Type Severity Reaction Status Date / Time morphine Allergy Rash/Hives Verified 04/18/17 15:06 rofecoxib [From Vioxx] Allergy Unknown Verified 04/18/17 15:06 acetaminophen AdvReac Rash/Hives Verified 04/18/17 15:06 [From Tylenol-Codeine #3] codeine AdvReac Rash/Hives Verified 04/18/17 15:06 [From Tylenol-Codeine #3] Physical Exam PHYSICAL EXAMINATION: GENERAL: The patient is alert and oriented x3, not in any acute distress. Well developed, well nourished. HEENT: Pupils are round and equally reacting to light. EOMI. No scleral icterus. No conjunctival pallor. Normocephalic, atraumatic. No pharyngeal erythema. No thyromegaly. CARDIOVASCULAR: S1 and S2 present. No murmurs, rubs, or gallops. PULMONARY: Chest is clear to auscultation, no wheezing or crackles. ABDOMEN: Soft, nontender, nondistended, normoactive bowel sounds. No palpable organomegaly. MUSCULOSKELETAL: No joint swelling or deformity. EXTREMITIES: No cyanosis, clubbing, or pedal edema. NEUROLOGICAL: Gross neurological examination did not reveal any focal deficits. SKIN: No rashes. Results CBC & Chem 7: 04/18/17 16:15 04/19/17 06:58 Labs: Abnormal Lab Results - Last 24 Hours (Table) 04/19/17 Range/Units 06:58 Hemoglobin A1c 9.6 H (4.2-6.1) % Thrombosis Risk Factor Assmnt - Choose All That Apply Any of the Below Risk Factors Present?: No Other Risk Factors: No Other congenital or acquired thrombophilia - If yes, enter type in comment: No Thrombosis Risk Factor Assessment Level: Very Low Risk Assessment and Plan Plan: #1 diabetic ketoacidosis: Ketoacidosis resolved patient's alkaloids were corrected and patient will be discharged home. Because of headache patient missed a few doses of insulin. #2type 1 diabetes: Patient will be continued on his home regimen and patient will defer to primary get patient in the town patient is originally from [place]. 3 headaches: Symptoms are not consistent with any primary headache syndromes unsure of the exact etiology, patient's symptoms improved with some chronic management patient will be referred to neurology as an outpatient. #4 pseudohyponatremia from hyperglycemia which improved.
== END 2017-04-19 18:27 | disposition home or self-care (01) | DRG 639 ==
LOC: EC 14:11 → 6SEL 18:46
PROVIDERS: ADMIT Internal Medicine; ATTEND Internal Medicine
DX: E10.10 Type 1 diabetes mellitus with ketoacidosis without coma (principal); E87.5 Hyperkalemia; T38.3X6A Underdosing of insulin and oral hypoglycemic [antidiabetic] drugs, initial encounter; R51 Headache; R11.10 Vomiting, unspecified; F12.90 Cannabis use, unspecified, uncomplicated; Z79.4 Long term (current) use of insulin; Z71.3 Dietary counseling and surveillance; Z79.899 Other long term (current) drug therapy; Z88.6 Allergy status to analgesic agent; Z88.5 Allergy status to narcotic agent; Z90.49 Acquired absence of other specified parts of digestive tract; Z80.9 Family history of malignant neoplasm, unspecified; Z79.1 Long term (current) use of non-steroidal anti-inflammatories (NSAID); Z79.891 Long term (current) use of opiate analgesic
CPT/HCPCS: 36415; 80051; 80053; 81003; 82009; 82150; 82565; 82947; 83036; 83690; 83735; 84100; 84132; 84520; 85025; 93005; 96361; 96374; 96375; 99285

== ENCOUNTER 2017-06-11 16:42 | Inpatient (IN) | payer OTHER ==
[2017-06-11] MEDS ORDERED: PROMETHAZINE INJ 25 MG in SODIUM CHLORIDE 0.9% 50 ML IVPB STA (17:35)
[2017-06-11] MEDS ORDERED: SODIUM CHLORIDE 0.9% 2,000 ML IV ONE (17:35)
--- NOTE | 2017-06-11 17:56 | ED ---
Nausea/Vomiting/Diarrhea HPI - General Chief complaint: Nausea/Vomiting/Diarrhea Stated complaint: Diabetic-vomiting, high sugar, dehydrated Time Seen by Provider: 06/11/17 17:28 Source: patient Mode of arrival: ambulatory - History of Present Illness Initial comments: This is a 32-year-old male with a history of type 1 diabetes who presents emergency department for nausea, vomiting, and diarrhea. He states it started with nausea and vomiting yesterday approximately 15 times. It progressed into nausea vomiting and diarrhea today. He denies any abdominal pain. No lightheadedness however he does admit to having cold sweats. No fevers or chills. States that he has been compliant with his insulin. His blood sugars have been running between 300 and 600 at home. He denies any changes to his insulin. No chest pain or shortness of breath. No cough and no other complaints. - Related Data Home Medications Medication Instructions Recorded Confirmed Insulin Aspart [NovoLOG] See Protocol SQ AC-TID 03/05/17 06/11/17 Zolpidem [Ambien] 10 mg PO HS 03/21/17 06/11/17 Insulin Glargine,Hum.rec.anlog 30 unit SQ HS 04/17/17 06/11/17 [Lantus Solostar] Allergies Allergy/AdvReac Type Severity Reaction Status Date / Time morphine Allergy Rash/Hives Verified 06/11/17 17:21 rofecoxib [From Vioxx] Allergy DIZZINESS Verified 06/11/17 17:21 codeine AdvReac Rash/Hives Verified 06/11/17 17:21 [From Tylenol-Codeine #3] Review of Systems ROS Statement: Those systems with pertinent positive or pertinent negative responses have been documented in the HPI. ROS Other: All systems not noted in ROS Statement are negative. Past Medical History Past Medical History: Diabetes Mellitus Additional Past Medical History / Comment(s): type 1 History of Any Multi-Drug Resistant Organisms: None Reported Past Surgical History: Cholecystectomy, Orthopedic Surgery Additional Past Surgical History / Comment(s): left knee x6 Past Anesthesia/Blood Transfusion Reactions: No Reported Reaction Past Psychological History: No Psychological Hx Reported Smoking Status: Never smoker Past Alcohol Use History: None Reported Past Drug Use History: Marijuana - Past Family History Sister(s) Family Medical History: Cancer Brother(s) Family Medical History: Cancer General Exam - General Exam Comments Initial Comments: Constitutional: Awake alert Appears comfortable Head: Normocephalic atraumatic Eyes: no conjunctival injection No scleral icterus EOMI ENT: oral mucosa appears moist, TMs clear bilaterally Neck: No JVD Supple Heart: Regular rate rhythm normal S1-S2 no murmurs Lungs: Clear to auscultation bilaterally No wheezing No rales Abdomen: Soft nondistended nontender Extremities: Non edematous DP pulses intact Radial pulses intact Neuro: A&Ox3 No focal neurologic deficits Psych: Appropriate mood and affect Course Vital Signs 06/11/17 17:12 Temperature 98.9 F Pulse Rate 107 H Respiratory 18 Rate Blood Pressure 133/80 O2 Sat by Pulse 98 Oximetry - Reevaluation(s) Reevaluation #1: 06/11/17 18:31 EKG showing normal sinus rhythm with a rate of 88. No abnormal ST segment changes or T-wave inversions. QTC is 433. Other intervals normal. No ectopy. Medical Decision Making - Medical Decision Making This is a 32-year-old male history of type 1 diabetes who presents emergency department for nausea, vomiting, diarrhea. He was found to be in mild DKA with a blood sugar of 413 and a bicarb of 19. He was started on an insulin drip. His nausea was well controlled with Phenergan. He was given 2 L of fluids. I spoke with Dr. Mcgovern who accepted the admission. The patient was updated and agrees. - Lab Data Result diagrams: 06/11/17 18:05 06/11/17 18:05 Lab Results 06/11/17 06/11/17 06/11/17 Range/Units 18:05 18:05 18:05 WBC 8.0 (3.8-10.6) k/uL RBC 4.73 (4.30-5.90) m/uL Hgb 14.9 (13.0-17.5) gm/dL Hct 42.9 (39.0-53.0) % MCV 90.6 (80.0-100.0) fL MCH 31.4 (25.0-35.0) pg MCHC 34.7 (31.0-37.0) g/dL RDW 13.5 (11.5-15.5) % Plt Count 299 (150-450) k/uL Neutrophils % 67 % Lymphocytes % 23 % Monocytes % 5 % Eosinophils % 2 % Basophils % 0 % Neutrophils # 5.4 (1.3-7.7) k/uL Lymphocytes # 1.8 (1.0-4.8) k/uL Monocytes # 0.4 (0-1.0) k/uL Eosinophils # 0.2 (0-0.7) k/uL Basophils # 0.0 (0-0.2) k/uL VBG pH 7.46 H (7.31-7.41) VBG pCO2 30 L (37-51) mmHg VBG HCO3 21 L (24-28) mmol/L Sodium (137-145) mmol/L Potassium (3.5-5.1) mmol/L Chloride (98-107) mmol/L Carbon Dioxide (22-30) mmol/L Anion Gap mmol/L BUN (9-20) mg/dL Creatinine (0.66-1.25) mg/dL Est GFR (MDRD) Af Amer (>60 ml/min/1.73 sqM) Est GFR (MDRD) Non-Af (>60 ml/min/1.73 sqM) Glucose (74-99) mg/dL POC Glucose (mg/dL) (75-99) mg/dL POC Glu Software Consultant ID Plasma Lactic Acid Micheal (0.7-2.0) mmol/L Calcium (8.4-10.2) mg/dL Total Bilirubin (0.2-1.3) mg/dL AST (17-59) U/L ALT (21-72) U/L Alkaline Phosphatase (38-126) U/L Total Protein (6.3-8.2) g/dL Albumin (3.5-5.0) g/dL Amylase 39 (30-110) U/L Lipase (23-300) U/L Urine Color Urine Appearance (Clear) Urine pH (5.0-8.0) Ur Specific [place] (1.001-1.035) Urine Protein (Negative) Urine Glucose (UA) (Negative) Urine Ketones (Negative) Urine Blood (Negative) Urine Nitrite (Negative) Urine Bilirubin (Negative) Urine Urobilinogen (<2.0) mg/dL Ur Leukocyte Esterase (Negative) Acetone, Qual Positive (Negative) 08/22/17 08/22/17 08/22/17 Range/Units 18:05 18:05 18:05 WBC (3.8-10.6) k/uL RBC (4.30-5.90) m/uL Hgb (13.0-17.5) gm/dL Hct (39.0-53.0) % MCV (80.0-100.0) fL MCH (25.0-35.0) pg MCHC (31.0-37.0) g/dL RDW (11.5-15.5) % Plt Count (150-450) k/uL Neutrophils % % Lymphocytes % % Monocytes % % Eosinophils % % Basophils % % Neutrophils # (1.3-7.7) k/uL Lymphocytes # (1.0-4.8) k/uL Monocytes # (0-1.0) k/uL Eosinophils # (0-0.7) k/uL Basophils # (0-0.2) k/uL VBG pH (7.31-7.41) VBG pCO2 (37-51) mmHg VBG HCO3 (24-28) mmol/L Sodium 135 L (137-145) mmol/L Potassium 4.7 (3.5-5.1) mmol/L Chloride 99 (98-107) mmol/L Carbon Dioxide 19 L (22-30) mmol/L Anion Gap 17 mmol/L BUN 14 (9-20) mg/dL Creatinine 0.90 (0.66-1.25) mg/dL Est GFR (MDRD) Af Amer >60 (>60 ml/min/1.73 sqM) Est GFR (MDRD) Non-Af >60 (>60 ml/min/1.73 sqM) Glucose 413 H (74-99) mg/dL POC Glucose (mg/dL) (75-99) mg/dL POC Glu Software Consultant ID Plasma Lactic Acid Micheal 1.1 (0.7-2.0) mmol/L Calcium 10.0 (8.4-10.2) mg/dL Total Bilirubin 0.9 (0.2-1.3) mg/dL AST 23 (17-59) U/L ALT 52 (21-72) U/L Alkaline Phosphatase 131 H (38-126) U/L Total Protein 7.1 (6.3-8.2) g/dL Albumin 4.4 (3.5-5.0) g/dL Amylase (30-110) U/L Lipase 85 (23-300) U/L Urine Color Light Yellow Urine Appearance Clear (Clear) Urine pH 5.0 (5.0-8.0) Ur Specific [place] 1.024 (1.001-1.035) Urine Protein Negative (Negative) Urine Glucose (UA) 4+ H (Negative) Urine Ketones 2+ H (Negative) Urine Blood Negative (Negative) Urine Nitrite Negative (Negative) Urine Bilirubin Negative (Negative) Urine Urobilinogen <2.0 (<2.0) mg/dL Ur Leukocyte Esterase Negative (Negative) Acetone, Qual (Negative) 06/11/17 Range/Units 18:09 WBC (3.8-10.6) k/uL RBC (4.30-5.90) m/uL Hgb (13.0-17.5) gm/dL Hct (39.0-53.0) % MCV (80.0-100.0) fL MCH (25.0-35.0) pg MCHC (31.0-37.0) g/dL RDW (11.5-15.5) % Plt Count (150-450) k/uL Neutrophils % % Lymphocytes % % Monocytes % % Eosinophils % % Basophils % % Neutrophils # (1.3-7.7) k/uL Lymphocytes # (1.0-4.8) k/uL Monocytes # (0-1.0) k/uL Eosinophils # (0-0.7) k/uL Basophils # (0-0.2) k/uL VBG pH (7.31-7.41) VBG pCO2 (37-51) mmHg VBG HCO3 (24-28) mmol/L Sodium (137-145) mmol/L Potassium (3.5-5.1) mmol/L Chloride (98-107) mmol/L Carbon Dioxide (22-30) mmol/L Anion Gap mmol/L BUN (9-20) mg/dL Creatinine (0.66-1.25) mg/dL Est GFR (MDRD) Af Amer (>60 ml/min/1.73 sqM) Est GFR (MDRD) Non-Af (>60 ml/min/1.73 sqM) Glucose (74-99) mg/dL POC Glucose (mg/dL) 381 H (75-99) mg/dL POC Glu Software Consultant ID Aby Trejo Plasma Lactic Acid Micheal (0.7-2.0) mmol/L Calcium (8.4-10.2) mg/dL Total Bilirubin (0.2-1.3) mg/dL AST (17-59) U/L ALT (21-72) U/L Alkaline Phosphatase (38-126) U/L Total Protein (6.3-8.2) g/dL Albumin (3.5-5.0) g/dL Amylase (30-110) U/L Lipase (23-300) U/L Urine Color Urine Appearance (Clear) Urine pH (5.0-8.0) Ur Specific [place] (1.001-1.035) Urine Protein (Negative) Urine Glucose (UA) (Negative) Urine Ketones (Negative) Urine Blood (Negative) Urine Nitrite (Negative) Urine Bilirubin (Negative) Urine Urobilinogen (<2.0) mg/dL Ur Leukocyte Esterase (Negative) Acetone, Qual (Negative) Disposition Clinical Impression: DKA (diabetic ketoacidoses) Disposition: ADMITTED IP TO THIS [facility] Condition: Serious Referrals: None,Stated [Primary Care Provider] - 1-2 days
[2017-06-11 18:19] LABS: Glucose,Whole Blood 381 mg/dL (75-99)
--- NOTE | 2017-06-11 18:20 | XR ---
EXAMINATION TYPE: XR chest 2V DATE OF EXAM: 06/11/2017 COMPARISON: June 13, 2011 HISTORY: Pain, vomiting TECHNIQUE: Frontal and lateral views of the chest are obtained. FINDINGS: There is no focal air space opacity, pleural effusion, or pneumothorax seen. The cardiac silhouette size is within normal limits. The osseous structures are intact. IMPRESSION: No acute cardiopulmonary process.
[2017-06-11 18:29] LABS: Basophils % (A) 0 %; CH 30.3; CHCM 33.6; Eosinophils # (A) 0.2 k/uL (0-0.7); Eosinophils % (A) 2 %; HCT 42.9 % (39.0-53.0); HDW 2.63; HGB 14.9 gm/dL (13.0-17.5); Luc % (Auto) 3; Lymphocytes # (A) 1.8 k/uL (1.0-4.8); Lymphocytes % (A) 23 %; MCH 31.4 pg (25.0-35.0); MCHC 34.7 g/dL (31.0-37.0); MCV 90.6 fL (80.0-100.0); Mean Platelet Volume 7.4; Monocytes # (A) 0.4 k/uL (0-1.0); Monocytes % (A) 5 %; Neutrophils # (A) 5.4 k/uL (1.3-7.7); Neutrophils % (A) 67 %; RBC 4.73 m/uL (4.30-5.90); RDW 13.5 % (11.5-15.5); VBG PH 7.46 (7.31-7.41); WBC (Perox) 8.03
[2017-06-11 18:31] LABS: Appearance,Urine Clear (Clear); Bilirubin,Urine Negative (Negative); Glucose,Urine (UA) 4+ (Negative); Leukocyte Esterase,Urine Negative (Negative); Nitrite,Urine Negative (Negative); Protein,Urine Negative (Negative); Specific Gravity,Urine 1.024 (1.001-1.035); UA Billing (MACRO vs. MICRO) CHEM; Urobilinogen,Urine <2.0 mg/dL (<2.0)
[2017-06-11 18:40] LABS: ALT 52 U/L (21-72); AST 23 U/L (17-59); Alkaline Phosphatase 131 U/L (38-126); Anion Gap 17 mmol/L; Blood Urea Nitrogen 14 mg/dL (9-20); Carbon Dioxide 19 mmol/L (22-30); Chloride 99 mmol/L (98-107); Glucose 413 mg/dL (74-99); Non-African American GFR(MDRD) >60 (>60 ml/min/1.73 sqM); Potassium 4.7 mmol/L (3.5-5.1); Sodium 135 mmol/L (137-145); Total Bilirubin 0.9 mg/dL (0.2-1.3); Total Protein 7.1 g/dL (6.3-8.2)
[2017-06-11 18:44] LABS: Ketones,Urine 2+ (Negative)
[2017-06-11] MEDS ORDERED: ACETAMINOPHEN IV (For NPO) 1,000 MG in EMPTY BAG 1 BAG IVPB ONE (18:49)
[2017-06-11] MEDS ORDERED: INSULIN REGULAR 100 UNIT in SODIUM CHLORIDE 0.9% 100 ML IV ONE (18:51)
[2017-06-11 18:55] LABS: Amylase 39 U/L (30-110)
[2017-06-11] MEDS ORDERED: SODIUM CHLORIDE 0.9% 1,000 ML IV SCH (19:15)
[2017-06-11 19:49] LABS: Glucose,Whole Blood 371 mg/dL (75-99)
[2017-06-11 20:29] LABS: Glucose,Whole Blood 347 mg/dL (75-99)
--- NOTE | 2017-06-11 20:39 | P.HPIM ---
History of Present Illness H&P Date: 06/11/17 Chief Complaint: Nausea and vomiting This is a 32-year-old male with past medical history of type 1 diabetes mellitus who came to emergency department with chief complaint of nausea and vomiting that started 2 days ago. 2 days prior to admission patient stated he was a awakened by nausea and after that he had several episodes of nonbloody episodes of vomiting. For the next 24 hours he was not able to tolerate any by mouth intake and this morning his nausea and vomiting continued and he also developed watery diarrhea. Main provoking factor for vomiting was any by mouth intake. There is no abdominal pain. There was no blood in the vomitus. Diarrhea was described as watery multiple bowel movements per day without any blood mucus or tenesmus. There was no abdominal pain. He also reports some chills and sweats but did not measure his temperature. 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 During his illness he continued to take his usual dose of insulin which is Lantus 30 units at bedtime and sliding scale scale of NovoLog. Patient denied any abdominal pain or flank pain. Denied any shortness of breath chest pain. Denies any burning with urination. He does have increased urination and increased thirst which he attributed to high sugars. Prior to this acute illness patient noticed occasionally nausea after eating food and was told that he might have gastroparesis. He denies dysphagia or odynophagia. He denies any previous significant episodes of diarrhea especially bloody diarrhea. Regarding his diabetes mellitus he was diagnosed 11 years ago. He currently moved out from [facility] down here and does not have any primary care physician. Patient claims to be adherent to his home medication regimen for diabetes but that he is sugars been running about 300 constantly. He seems to have some numbness and tingling in his feet and was told to have diabetic neuropathy. In the emergency department was found to show normal blood count, high blood glucose and bicarb of 19 with normal anion gap and presence of the ketones in urine and blood and was given large amounts of IV fluids and started on insulin drip. Currently states that she is nausea and vomiting are better this feels hungry. Also reports some chronic lower back pain and demands of Dilaudid. Review of Systems Constitutional: Reports chronic pain, Reports fatigue, Reports malaise, Reports sweats, Reports weight loss Ears, nose, mouth and throat: Denies dysphagia, Denies headache, Denies nasal congestion, Denies odynophagia Cardiovascular: Denies chest pain, Denies dyspnea on exertion, Denies lightheadedness Respiratory: Denies cough, Denies dyspnea Gastrointestinal: Reports as per HPI Genitourinary: Reports polyuria, Reports urinary frequency, Denies dysuria, Denies flank pain, Denies nocturia, Denies urinary hesitancy, Denies urinary retention Musculoskeletal: Reports leg numbness/tingling Integumentary: Denies foot/leg ulcers, Denies pruritus, Denies rash Neurological: Reports numbness Psychiatric: Denies anxiety Endocrine: Reports excessive thirst, Reports fatigue, Reports high blood sugars , Reports polydipsia, Reports polyuria, Denies cold intolerance, Denies excessive sweating, Denies heat intolerance, Denies polyphagia Past Medical History Past Medical History: Diabetes Mellitus Additional Past Medical History / Comment(s): type 1 History of Any Multi-Drug Resistant Organisms: None Reported Past Surgical History: Cholecystectomy, Orthopedic Surgery Additional Past Surgical History / Comment(s): left knee x6 Past Anesthesia/Blood Transfusion Reactions: No Reported Reaction Past Psychological History: No Psychological Hx Reported Smoking Status: Never smoker Past Alcohol Use History: None Reported Past Drug Use History: Marijuana - Past Family History Sister(s) Family Medical History: Cancer Brother(s) Family Medical History: Cancer Medications and Allergies Home Medications Medication Instructions Recorded Confirmed Type Insulin Aspart [NovoLOG] See Protocol SQ AC-TID 03/05/17 06/11/17 History Zolpidem [Ambien] 10 mg PO HS 03/21/17 06/11/17 History Insulin Glargine,Hum.rec.anlog 30 unit SQ 04/17/17 06/11/17 History [Lantus Solostar] Allergies Allergy/AdvReac Type Severity Reaction Status Date / Time morphine Allergy Rash/Hives Verified 06/11/17 17:21 rofecoxib [From Vioxx] Allergy DIZZINESS Verified 06/11/17 17:21 codeine AdvReac Rash/Hives Verified 06/11/17 17:21 [From Tylenol-Codeine #3] Physical Exam Vitals: Vital Signs Temp Pulse Resp BP Pulse Ox 06/11/17 19:57 97.8 F 89 18 130/80 99 06/11/17 17:12 98.9 F 107 H 18 133/80 98 Intake and Output 06/11/17 06/11/17 06/11/17 06:59 14:59 22:59 Intake Total 1999 Balance 1999 Intake: IV 1999 Invasive Line 1 1999 Other: Weight 84.368 kg Patient Weight 06/12/17 06:59 Weight 84.368 kg - Constitutional General appearance: cooperative, no acute distress - EENT Eyes: anicteric sclerae, EOMI, PERRLA ENT: normal oropharynx - Neck Neck: no lymphadenopathy, no thyromegaly - Respiratory Respiratory: bilateral: CTA - Cardiovascular Rhythm: regular Heart sounds: normal: S1, S2 - Gastrointestinal General gastrointestinal: no distended, normal bowel sounds, no organomegaly, no rigid, soft, no tenderness - Integumentary Integumentary: no jaundiced, no rash - Neurologic Neurologic: CNII-XII intact, focal deficits - Psychiatric Psychiatric: A&O x's 3, appropriate affect, intact judgment & insight Results CBC & Chem 7: 06/11/17 18:05 06/11/17 18:05 Labs: Abnormal Lab Results - Last 24 Hours (Table) 06/11/17 06/11/17 06/11/17 Range/Units 18:05 18:05 18:05 VBG pH 7.46 H (7.31-7.41) VBG pCO2 30 L (37-51) mmHg VBG HCO3 21 L (24-28) mmol/L Sodium 135 L (137-145) mmol/L Carbon Dioxide 19 L (22-30) mmol/L Glucose 413 H (74-99) mg/dL POC Glucose (mg/dL) (75-99) mg/dL Alkaline Phosphatase 131 H (38-126) U/L Urine Glucose (UA) 4+ H (Negative) Urine Ketones 2+ H (Negative) 06/11/17 06/11/17 Range/Units 18:09 19:48 VBG pH (7.31-7.41) VBG pCO2 (37-51) mmHg VBG HCO3 (24-28) mmol/L Sodium (137-145) mmol/L Carbon Dioxide (22-30) mmol/L Glucose (74-99) mg/dL POC Glucose (mg/dL) 381 H 371 H (75-99) mg/dL Alkaline Phosphatase (38-126) U/L Urine Glucose (UA) (Negative) Urine Ketones (Negative) Chest x-ray: report reviewed Abdominal x-ray: report reviewed Thrombosis Risk Factor Assmnt - DVT/VTE Prophylaxis DVT/VTE Prophylaxis: Pharmacologic Prophylaxis ordered Assessment and Plan (1) DKA (diabetic ketoacidoses) Narrative/Plan: This is a mild case of diabetic ketoacidosis with most of symptoms coming from hyperglycemia Certainly his nausea and vomiting are out of proportion for the lateral acidosis and could represent acute gastroenteritis on top of diabetic gastroparesis and possible esophagitis or gastritis given history of heartburns and postprandial nausea Patient has been started on insulin drip and IV fluids which would represent quickest way to correct his metabolic abnormalities We will closely monitor his sugars and electrolytes Continue hydration Not completely normal with a blood glucose given chronic hyperglycemia Once blood glucose in 250 range we will switch patient to his home regimen of subcu insulin Start patient on clear liquid diet PPI Further recommendations based on recovery course Status: Acute (2) Type 1 diabetes mellitus on insulin therapy Narrative/Plan: Currently patient is on Lantus 30 units at nighttime with normal prandial sliding scale Questionable adherence to the regimen Will need primary care physician in the area for close follow-up Will need diabetic teaching Unknown A1c Possibly early diabetic neuropathy and gastroparesis Atelectatic discussion with the patient about aggressive treatment of his diabetes given his young age Status: Chronic
[2017-06-11] MEDS ORDERED: INSULIN NPH 300 UNIT/3 ML VIAL SQ ONE (20:40)
[2017-06-11] MEDS ORDERED: NALOXONE 0.4 MG/ML 1 ML VIAL IV PRN (20:44)
[2017-06-11] MEDS ORDERED: ONDANSETRON 4 MG/2 ML VIAL IVP PRN (20:44)
[2017-06-11] MEDS ORDERED: MAG HYDROX/AL HYDROX/SIMETH 30 ML CUP PO PRN (20:44)
[2017-06-11 20:49] LABS: Blood Urea Nitrogen 14 mg/dL (9-20); Carbon Dioxide 19 mmol/L (22-30); Glucose 384 mg/dL (74-99); Non-African American GFR(MDRD) >60 (>60 ml/min/1.73 sqM); Potassium 3.8 mmol/L (3.5-5.1); Sodium 136 mmol/L (137-145)
[2017-06-11 20:56] LABS: Anion Gap 17 mmol/L; Chloride 100 mmol/L (98-107)
[2017-06-11] MEDS ORDERED: INSULIN GLARGINE 100 UNIT/ML 10 ML VIAL SQ SCH (21:00)
[2017-06-11 21:07] LABS: Glucose,Whole Blood 243 mg/dL (75-99)
[2017-06-11] MEDS: ACETAMINOPHEN TAB 325 MG TAB PO PRN (21:35)
[2017-06-11] MEDS: ZOLPIDEM 10 MG TAB PO SCH (21:36)
[2017-06-11] MEDS: SODIUM CHLORIDE 0.45% 1,000 ML IV SCH (21:39)
[2017-06-11 22:04] LABS: Glucose,Whole Blood 106 mg/dL (75-99)
[2017-06-11 23:01] LABS: Glucose,Whole Blood 180 mg/dL (75-99)
[2017-06-12 00:04] LABS: Anion Gap 12 mmol/L; Blood Urea Nitrogen 13 mg/dL (9-20); Carbon Dioxide 17 mmol/L (22-30); Chloride 108 mmol/L (98-107); Glucose 162 mg/dL (74-99); Non-African American GFR(MDRD) >60 (>60 ml/min/1.73 sqM); Phosphorous 2.9 mg/dL (2.5-4.5); Potassium 3.5 mmol/L (3.5-5.1); Sodium 137 mmol/L (137-145)
[2017-06-12 00:06] LABS: Glucose,Whole Blood 117 mg/dL (75-99)
[2017-06-12 01:06] LABS: Glucose,Whole Blood 122 mg/dL (75-99)
[2017-06-12 02:23] LABS: Glucose,Whole Blood 165 mg/dL (75-99)
[2017-06-12 03:08] LABS: Glucose,Whole Blood 211 mg/dL (75-99)
[2017-06-12] MEDS: HEPARIN SODIUM,PORCINE 5,000 UNIT/ML 1 ML VIAL SQ SCH ×4 (03:55→17:06)
[2017-06-12 04:02] LABS: Glucose,Whole Blood 266 mg/dL (75-99)
[2017-06-12 05:15] LABS: Glucose,Whole Blood 301 mg/dL (75-99)
[2017-06-12 05:44] LABS: Glucose,Whole Blood 231 mg/dL (75-99)
[2017-06-12] MEDS: PANTOPRAZOLE 40 MG TABLET PO SCH (07:02)
[2017-06-12] MEDS: INSULIN LISPRO (humaLOG) 300 UNIT/3 ML VIAL SQ SCH ×7 (07:03→21:29)
[2017-06-12 07:51] LABS: Anion Gap 14 mmol/L; Blood Urea Nitrogen 12 mg/dL (9-20); Calcium 8.9 mg/dL (8.4-10.2); Carbon Dioxide 14 mmol/L (22-30); Chloride 109 mmol/L (98-107); Glucose 252 mg/dL (74-99); Magnesium 1.5 mg/dL (1.6-2.3); Non-African American GFR(MDRD) >60 (>60 ml/min/1.73 sqM); Potassium 5.2 mmol/L (3.5-5.1); Sodium 137 mmol/L (137-145)
[2017-06-12] MEDS: ACETAMINOPHEN TAB 325 MG TAB PO PRN (07:55)
[2017-06-12] MEDS ORDERED: MORPHINE SULFATE 2 MG/ML SYRINGE IVP PRN (08:50)
[2017-06-12 09:38] LABS: Glucose,Whole Blood 359 mg/dL (75-99)
[2017-06-12] MEDS ORDERED: HYDROmorphone 1 MG/ML 1 ML SYRINGE IVP STA (09:51)
[2017-06-12] MEDS ORDERED: INSULIN LISPRO (humaLOG) 300 UNIT/3 ML VIAL SQ ONE (09:52)
[2017-06-12] MEDS: PROMETHAZINE INJ 25 MG/ML 1 ML VIAL IM PRN ×3 (10:00→22:19)
[2017-06-12] MEDS: SODIUM CHLORIDE 0.45% 1,000 ML IV SCH (10:11)
[2017-06-12] MEDS ORDERED: SODIUM CHLORIDE 0.9% 1,000 ML IV ONE (10:25)
--- NOTE | 2017-06-12 10:39 | P.PN ---
Subjective Principal diagnosis: Nausea vomiting and diarrhea This is a very pleasant 32 years old male with history of diabetes type 1 presented with nausea vomiting and diarrhea that he experienced in the past 4 days. Since admission had 4 watery greenish stools continued to have nausea, but no emesis. Patient was treated for DKA with insulin drip which has been stopped last night. This morning patient was tolerating oral intake. Complains of back pain which is chronic, asking for pain medication. Objective - Vital Signs Vital signs: Vital Signs Temp 98.0 F 06/12/17 04:00 Pulse 87 06/12/17 04:00 Resp 18 06/12/17 04:00 BP 126/72 06/12/17 04:00 Pulse Ox 99 06/12/17 04:00 Intake & Output 06/11/17 06/12/17 06/12/17 18:59 06:59 18:59 Intake Total 1999 824.529 240 Balance 1999 824.529 240 Weight 84.368 kg 81.1 kg Intake: IV 1999 800 Invasive Line 1 1999 Sodium Chloride 0.45% 1, 800 000 ml @ 100 mls/hr IV . Q10H GORGE Rx#:[id number] Intake, IV Titration 24.529 Amount Insulin Regular 100 unit 24.529 In Sodium Chloride 0.9% 100 ml @ 8 UNIT/HR 8.08 mls/hr IV .[id number] ONE Rx #:[id number] Oral 240 Other: Voiding Method Toilet # Voids 4 - Exam Constitutional: No acute distress, conversant, pleasant Eyes: Anicteric sclerae, moist conjunctiva ENMT: NC/AT Oropharynx clear, no erythema, exudates Neck: Supple, FROM, no masses, or JVD No thyromegaly Lungs: Clear to auscultation Clear to percussion Normal respiratory effort, no accessory muscle use Cardiovascular: Heart regular in rate and rhythm, No murmurs, gallops, or rubs No peripheral edema Abdominal: Soft Nontender, no guarding, rebound or rigidity Abdomen moving with respiration Normoactive bowel sounds No palpable mass No abdominal wall hernia noted Skin: Normal temperature, tone, texture, turgor No induration No subcutaneous nodules No rash, lesions No ulcers Extremities: No digital cyanosis No clubbing Pedal pulses intact and symmetrical Radial pulses intact and symmetrical Psychiatric: Alert and oriented to person, place and time Appropriate affect - Labs CBC & Chem 7: 06/11/17 18:05 06/12/17 05:45 Labs: Abnormal Lab Results - Last 24 Hours (Table) 06/11/17 06/11/17 06/11/17 Range/Units 18:05 18:05 18:05 VBG pH 7.46 H (7.31-7.41) VBG pCO2 30 L (37-51) mmHg VBG HCO3 21 L (24-28) mmol/L Sodium 135 L (137-145) mmol/L Potassium (3.5-5.1) mmol/L Chloride (98-107) mmol/L Carbon Dioxide 19 L (22-30) mmol/L Glucose 413 H (74-99) mg/dL POC Glucose (mg/dL) (75-99) mg/dL Magnesium (1.6-2.3) mg/dL Alkaline Phosphatase 131 H (38-126) U/L Urine Glucose (UA) 4+ H (Negative) Urine Ketones 2+ H (Negative) 06/11/17 06/11/17 06/11/17 Range/Units 18:09 19:48 20:14 VBG pH (7.31-7.41) VBG pCO2 (37-51) mmHg VBG HCO3 (24-28) mmol/L Sodium 136 L (137-145) mmol/L Potassium (3.5-5.1) mmol/L Chloride (98-107) mmol/L Carbon Dioxide 19 L (22-30) mmol/L Glucose 384 H (74-99) mg/dL POC Glucose (mg/dL) 381 H 371 H (75-99) mg/dL Magnesium (1.6-2.3) mg/dL Alkaline Phosphatase (38-126) U/L Urine Glucose (UA) (Negative) Urine Ketones (Negative) 06/11/17 06/11/17 06/11/17 Range/Units 20:17 20:55 21:52 VBG pH (7.31-7.41) VBG pCO2 (37-51) mmHg VBG HCO3 (24-28) mmol/L Sodium (137-145) mmol/L Potassium (3.5-5.1) mmol/L Chloride (98-107) mmol/L Carbon Dioxide (22-30) mmol/L Glucose (74-99) mg/dL POC Glucose (mg/dL) 347 H 243 H 106 H (75-99) mg/dL Magnesium (1.6-2.3) mg/dL Alkaline Phosphatase (38-126) U/L Urine Glucose (UA) (Negative) Urine Ketones (Negative) 06/11/17 06/11/17 06/11/17 Range/Units 22:59 23:35 23:54 VBG pH (7.31-7.41) VBG pCO2 (37-51) mmHg VBG HCO3 (24-28) mmol/L Sodium (137-145) mmol/L Potassium (3.5-5.1) mmol/L Chloride 108 H (98-107) mmol/L Carbon Dioxide 17 L (22-30) mmol/L Glucose 162 H (74-99) mg/dL POC Glucose (mg/dL) 180 H 117 H (75-99) mg/dL Magnesium (1.6-2.3) mg/dL Alkaline Phosphatase (38-126) U/L Urine Glucose (UA) (Negative) Urine Ketones (Negative) 06/12/17 06/12/17 06/12/17 Range/Units 01:02 02:11 03:07 VBG pH (7.31-7.41) VBG pCO2 (37-51) mmHg VBG HCO3 (24-28) mmol/L Sodium (137-145) mmol/L Potassium (3.5-5.1) mmol/L Chloride (98-107) mmol/L Carbon Dioxide (22-30) mmol/L Glucose (74-99) mg/dL POC Glucose (mg/dL) 122 H 165 H 211 H (75-99) mg/dL Magnesium (1.6-2.3) mg/dL Alkaline Phosphatase (38-126) U/L Urine Glucose (UA) (Negative) Urine Ketones (Negative) 06/12/17 06/12/17 06/12/17 Range/Units 03:51 05:03 05:42 VBG pH (7.31-7.41) VBG pCO2 (37-51) mmHg VBG HCO3 (24-28) mmol/L Sodium (137-145) mmol/L Potassium (3.5-5.1) mmol/L Chloride (98-107) mmol/L Carbon Dioxide (22-30) mmol/L Glucose (74-99) mg/dL POC Glucose (mg/dL) 266 H 301 H 231 H (75-99) mg/dL Magnesium (1.6-2.3) mg/dL Alkaline Phosphatase (38-126) U/L Urine Glucose (UA) (Negative) Urine Ketones (Negative) 06/12/17 06/12/17 Range/Units 05:45 09:34 VBG pH (7.31-7.41) VBG pCO2 (37-51) mmHg VBG HCO3 (24-28) mmol/L Sodium (137-145) mmol/L Potassium 5.2 H (3.5-5.1) mmol/L Chloride 109 H (98-107) mmol/L Carbon Dioxide 14 L (22-30) mmol/L Glucose 252 H (74-99) mg/dL POC Glucose (mg/dL) 359 H (75-99) mg/dL Magnesium 1.5 L (1.6-2.3) mg/dL Alkaline Phosphatase (38-126) U/L Urine Glucose (UA) (Negative) Urine Ketones (Negative) Assessment and Plan (1) DKA (diabetic ketoacidoses) Narrative/Plan: DKA secondary to gastroenteritis, resolved. Continue with IV fluids, insulin. Accu-Cheks before meals at bedtime. Status: Acute (2) Gastroenteritis Narrative/Plan: Continue supportive treatment with IV fluids, antiemetics. Stool studies. Status: Acute (3) Hyperkalemia Narrative/Plan: Hydrate and monitor Status: Acute (4) Hypomagnesemia Narrative/Plan: Replace and monitor magnesium level. Status: Acute (5) Type 1 diabetes mellitus on insulin therapy Narrative/Plan: Continue current insulin regimen. Check hemoglobin A1c. Status: Chronic Time with Patient: Less than 30
[2017-06-12 11:34] LABS: Glucose,Whole Blood 178 mg/dL (75-99)
[2017-06-12] MEDS: MAGNESIUM SULFATE-D5W PMX 1 GM in DEXTROSE/WATER 1 100ML.BAG IVPB SCH ×2 (12:09→15:22)
[2017-06-12] MEDS: SODIUM CHLORIDE 0.9% 1,000 ML IV SCH ×3 (12:11→23:28)
[2017-06-12 13:22] LABS: Hemoglobin A1C 8.7 % (4.2-6.1)
[2017-06-12 14:56] VITALS: BMI 22.3
[2017-06-12] MEDS ORDERED: LOPERAMIDE 2 MG CAP PO PRN (15:15)
[2017-06-12 15:43] LABS: Anion Gap 7 mmol/L; Blood Urea Nitrogen 8 mg/dL (9-20); Calcium 8.3 mg/dL (8.4-10.2); Carbon Dioxide 17 mmol/L (22-30); Chloride 111 mmol/L (98-107); Glucose 114 mg/dL (74-99); Non-African American GFR(MDRD) >60 (>60 ml/min/1.73 sqM); Potassium 4.6 mmol/L (3.5-5.1); Sodium 135 mmol/L (137-145)
[2017-06-12 15:50] LABS: Glucose,Whole Blood 110 mg/dL (75-99)
[2017-06-12 16:39] LABS: Glucose,Whole Blood 121 mg/dL (75-99)
[2017-06-12] MEDS: HYDROcodone/APAP 5-325MG 1 EACH TAB PO PRN (18:56)
[2017-06-12 20:56] LABS: Glucose,Whole Blood 375 mg/dL (75-99)
[2017-06-12] MEDS: ZOLPIDEM 10 MG TAB PO SCH (21:29)
[2017-06-12] MEDS: INSULIN GLARGINE 100 UNIT/ML 10 ML VIAL SQ SCH (21:29)
[2017-06-13] MEDS: HEPARIN SODIUM,PORCINE 5,000 UNIT/ML 1 ML VIAL SQ SCH ×3 (00:05→16:51)
[2017-06-13] MEDS: HYDROcodone/APAP 5-325MG 1 EACH TAB PO PRN ×2 (01:41→08:37)
[2017-06-13] MEDS: PROMETHAZINE INJ 25 MG/ML 1 ML VIAL IM PRN (05:15)
[2017-06-13 07:01] LABS: Glucose,Whole Blood 109 mg/dL (75-99)
[2017-06-13] MEDS: INSULIN LISPRO (humaLOG) 300 UNIT/3 ML VIAL SQ SCH ×5 (07:58→22:02)
[2017-06-13 08:10] LABS: Anion Gap 10 mmol/L; Blood Urea Nitrogen 9 mg/dL (9-20); Calcium 8.4 mg/dL (8.4-10.2); Carbon Dioxide 18 mmol/L (22-30); Chloride 111 mmol/L (98-107); Glucose 101 mg/dL (74-99); Non-African American GFR(MDRD) >60 (>60 ml/min/1.73 sqM); Sodium 139 mmol/L (137-145)
[2017-06-13 08:17] LABS: Potassium 4.4 mmol/L (3.5-5.1)
[2017-06-13] MEDS: PANTOPRAZOLE 40 MG TABLET PO SCH (08:39)
--- NOTE | 2017-06-13 10:29 | P.CONS ---
History of Present Illness - Reason for Consult Consult date: 06/13/17 Epigastric pain Requesting physician: Ángel Valdovinos - History of Present Illness 32-year-old male with a history of type 1 diabetes cholecystectomy several years ago, chronic diarrhea, chronic epigastric pain, possible gastroparesis presents with nausea vomiting diarrhea 2 days. Started on intravenous insulin secondary to diabetic ketoacidosis. White count 8. Hemoglobin 14.9. Clostridium difficile negative. Stool occult blood negative. Serum acetone positive. BUN 8. Creatinine 0.7. Sodium 135. Potassium 4.6. LFTs unremarkable. Lipase 85. He has had chronic diarrhea several times a day for several years. Diarrhea was present before cholecystectomy. Frequency depends on how much he eats. He' s also had intermittent chronic epigastric discomfort but exacerbated over last few days. Denies hematemesis hematochezia melena. No fever or chills. Pain is centered mostly in the mid epigastrium. No history of EGD. 2 colonoscopies in the past for evaluation of diarrhea last one about 4 years ago with a few polyps removed. Review of Systems Constitutional: Denies fever, chills, sweats, weight gain, or loss. HEENT: Negative for migraines, blurred vision or loss, earaches, drainage, tinnitus, oral mucosal lesions, dysphagia, or odynophagia. Cardiac: Negative for chest pain, arrhythmias, or palpitation. Respiratory: Negative for shortness of breath, hemoptysis, cough, or sputum production. Gastrointestinal: See HPI for pertinent findings. Genitourinary: Negative for hematuria, urgency, frequency, polyuria, dysuria, or penile discharge. Musculoskeletal: Negative for muscle aches, swelling, arthritis, and arthralgias. Neurologic: Negative for stroke or TIA. Endocrine: Type 1 diabetes mellitus. Negative for thyroid problems. Skin: Negative for rash or itching. Psychiatric: Negative history for depression and anxiety All systems: negative (See HPI) Past Medical History Past Medical History: Diabetes Mellitus Additional Past Medical History / Comment(s): type 1 History of Any Multi-Drug Resistant Organisms: None Reported Past Surgical History: Cholecystectomy, Orthopedic Surgery Additional Past Surgical History / Comment(s): left knee x6 Past Anesthesia/Blood Transfusion Reactions: No Reported Reaction Past Psychological History: No Psychological Hx Reported Smoking Status: Never smoker Past Alcohol Use History: None Reported Past Drug Use History: Marijuana - Past Family History Sister(s) Family Medical History: Cancer Brother(s) Family Medical History: Cancer Medications and Allergies Home Medications Medication Instructions Recorded Confirmed Type Insulin Aspart [NovoLOG] See Protocol SQ AC-TID 03/05/17 06/11/17 History Zolpidem [Ambien] 10 mg PO HS 03/21/17 06/11/17 History Insulin Glargine,Hum.rec.anlog 30 unit SQ HS 04/17/17 06/11/17 History [Lantus Solostar] Allergies Allergy/AdvReac Type Severity Reaction Status Date / Time morphine Allergy Rash/Hives Verified 06/11/17 17:21 rofecoxib [From Vioxx] Allergy DIZZINESS Verified 06/11/17 17:21 codeine AdvReac Rash/Hives Verified 06/11/17 17:21 [From Tylenol-Codeine #3] Physical Exam Vitals: Vital Signs Temp Pulse Resp BP Pulse Ox 06/13/17 07:00 97.2 F L 72 16 113/61 100 06/13/17 05:54 98.1 F 68 16 120/70 99 06/13/17 04:00 16 06/12/17 22:11 97.6 F 74 18 124/59 97 06/12/17 16:00 97.6 F 80 18 122/80 97 06/12/17 12:00 97.5 F L 72 16 119/72 98 Intake and Output 06/12/17 06/13/17 06/13/17 22:59 06:59 14:59 Intake Total 300 800 Balance 300 800 Intake: IV 300 800 Sodium Chloride 0.45% 1, 300 000 ml @ 100 mls/hr IV . Q10H [facility] Rx#:[id number] Sodium Chloride 0.9% 1, 800 000 ml @ 100 mls/hr IV . Q10H [facility]ORGE Rx#:[id number] Other: Voiding Method Toilet # Voids 1 Weight 83.1 kg General appearance: The patient is alert, oriented, in no acute distress. HET: Head is normocephalic and atraumatic. Pupils are equal and reactive. Oropharynx is clear without lesions. Neck: Supple without lymphadenopathy. Trachea midline. Heart: S1 S2. Regular rate and rhythm. Lungs: No crackles or wheezes are heard. Abdomen: Soft, epigastric tenderness, nondistended with bowel sounds. No peritoneal signs. No palpable organomegaly or masses. Extremities: Normal skin color and turgor. No cyanosis, rash, ulceration, clubbing, or edema. Radial and pedal pulses are 2/4 bilaterally. Neurological: No focal deficits. Strength and sensation are grossly intact. Results CBC & Chem 7: 06/11/17 18:05 06/13/17 06:40 Labs: Abnormal Lab Results - Last 24 Hours (Table) 06/11/17 06/12/17 06/12/17 Range/Units 23:35 05:45 09:34 Sodium (137-145) mmol/L Potassium 5.2 H (3.5-5.1) mmol/L Chloride 109 H (98-107) mmol/L Carbon Dioxide 14 L (22-30) mmol/L BUN (9-20) mg/dL Glucose 252 H (74-99) mg/dL POC Glucose (mg/dL) 359 H (75-99) mg/dL Hemoglobin A1c 8.7 H (4.2-6.1) % Calcium (8.4-10.2) mg/dL Magnesium 1.5 L (1.6-2.3) mg/dL 06/12/17 06/12/17 06/12/17 Range/Units 11:28 15:24 15:29 Sodium 135 L (137-145) mmol/L Potassium (3.5-5.1) mmol/L Chloride 111 H (98-107) mmol/L Carbon Dioxide 17 L (22-30) mmol/L BUN 8 L (9-20) mg/dL Glucose 114 H (74-99) mg/dL POC Glucose (mg/dL) 178 H 110 H (75-99) mg/dL Hemoglobin A1c (4.2-6.1) % Calcium 8.3 L (8.4-10.2) mg/dL Magnesium (1.6-2.3) mg/dL 06/12/17 06/12/17 06/13/17 Range/Units 16:36 20:54 06:53 Sodium (137-145) mmol/L Potassium (3.5-5.1) mmol/L Chloride (98-107) mmol/L Carbon Dioxide (22-30) mmol/L BUN (9-20) mg/dL Glucose (74-99) mg/dL POC Glucose (mg/dL) 121 H 375 H 109 H (75-99) mg/dL Hemoglobin A1c (4.2-6.1) % Calcium (8.4-10.2) mg/dL Magnesium (1.6-2.3) mg/dL Microbiology - Last 24 Hours (Table) 06/12/17 11:28 Stool for WBCs - Final Stool 06/12/17 11:28 Stool Culture - Preliminary Stool Assessment and Plan (1) Epigastric pain Status: Acute (2) Nausea & vomiting Status: Acute (3) DKA (diabetic ketoacidoses) Status: Acute (4) Type 1 diabetes mellitus on insulin therapy Status: Chronic Plan: 1. 2 view abdomen. Supportive measures. Protonix 40 mg IV twice daily. [place] diet as tolerated no straws or carbonated beverages. Nothing by mouth after midnight. Zofran every 6 hours as needed. Increase Imodium 2 mg 4 times a day scheduled. We'll proceed with EGD evaluation tomorrow. The software developer manager has discussed the risks, benefits and alternative therapies for the above-mentioned procedure and for both sedation/analgesia as well as necessary blood product administration, if indicated, as they pertain to this patient. The patient has indicated understanding and acceptance of the risks and procedures discussed. Thank you for this kind referral and the opportunity to participate in the care of your patient. This consultation was discussed with Dr. Warner. The impression and plan of care have been directed as dictated.
[2017-06-13] MEDS: HYDROmorphone 1 MG/ML 1 ML SYRINGE IVP PRN ×4 (10:41→22:48)
--- NOTE | 2017-06-13 11:12 | XR ---
EXAMINATION TYPE: XR abdomen complete w decub DATE OF EXAM: 06/13/2017 COMPARISON: NONE HISTORY: Nausea, vomiting and diarrhea TECHNIQUE: 4 views are submitted. FINDINGS: Previous surgery in the gallbladder fossa noted. Bowel gas pattern nonspecific with no diag nostic evidence of obstruction. Mild hypertrophic change of the acetabulum. Calcification the pelvis likely vascular. IMPRESSION: Nonspecific abdomen with no diagnostic evidence of obstruction.
[2017-06-13 11:18] LABS: Glucose,Whole Blood 283 mg/dL (75-99)
[2017-06-13] MEDS: SODIUM CHLORIDE 0.9% 1,000 ML IV SCH ×2 (12:57→21:09)
[2017-06-13] MEDS: LOPERAMIDE 2 MG CAP PO SCH ×3 (13:05→21:09)
--- NOTE | 2017-06-13 14:36 | P.PN ---
Subjective Principal diagnosis: Nausea and vomiting This is a 32-year-old male with past medical history of type 1 diabetes mellitus who came to emergency department with chief complaint of nausea and vomiting that started 2 days ago. 2 days prior to admission patient stated he was a awakened by nausea and after that he had several episodes of nonbloody episodes of vomiting. For the next 24 hours he was not able to tolerate any by mouth intake and this morning his nausea and vomiting continued and he also developed watery diarrhea. Main provoking factor for vomiting was any by mouth intake. There is no abdominal pain. There was no blood in the vomitus. Diarrhea was described as watery multiple bowel movements per day without any blood mucus or tenesmus. There was no abdominal pain. He also reports some chills and sweats but did not measure his temperature. 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 During his illness he continued to take his usual dose of insulin which is Lantus 30 units at bedtime and sliding scale scale of NovoLog. Patient denied any abdominal pain or flank pain. Denied any shortness of breath chest pain. Denies any burning with urination. He does have increased urination and increased thirst which he attributed to high sugars. Prior to this acute illness patient noticed occasionally nausea after eating food and was told that he might have gastroparesis. He denies dysphagia or odynophagia. He denies any previous significant episodes of diarrhea especially bloody diarrhea. Regarding his diabetes mellitus he was diagnosed 11 years ago. He currently moved out from [facility] down here and does not have any primary care physician. Patient claims to be adherent to his home medication regimen for diabetes but that he is sugars been running about 300 constantly. He seems to have some numbness and tingling in his feet and was told to have diabetic neuropathy. In the emergency department was found to show normal blood count, high blood glucose and bicarb of 19 with normal anion gap and presence of the ketones in urine and blood and was given large amounts of IV fluids and started on insulin drip. Currently states that she is nausea and vomiting are better this feels hungry. Also reports some chronic lower back pain and demands of Dilaudid. Last night after dinner patient developed worsening of epigastric pain, had some nausea and vomited once today. Gastroenterology has been consulted for EGD. Patient still feeling nauseous, has poor by mouth intake, continues to have watery diarrhea. Objective - Vital Signs Vital signs: Vital Signs Temp 97.2 F L 06/13/17 07:00 Pulse 72 06/13/17 07:00 Resp 16 06/13/17 07:00 BP 113/61 06/13/17 07:00 Pulse Ox 100 06/13/17 07:00 Intake & Output 06/12/17 06/13/17 06/13/17 18:59 06:59 18:59 Intake Total 1940 1100 180 Balance 1940 1100 180 Weight 81.1 kg 83.1 kg Intake: IV 1500 1100 Sodium Chloride 0.45% 1, 1500 300 000 ml @ 100 mls/hr IV . Q10H GORGE Rx#:[id number] Sodium Chloride 0.9% 1, 800 000 ml @ 100 mls/hr IV . Q10H GORGE Rx#:[id number] Intake, IV Titration 200 Amount Magnesium Sulfate-D5w Pmx 200 1 gm In Dextrose/Water 1 100ml.bag @ 100 mls/hr IVPB Q1H GORGE Rx#: [id number] Oral 240 180 Other: Voiding Method Toilet Toilet # Voids 6 1 # Bowel Movements 2 - Exam Constitutional: No acute distress, conversant, pleasant Eyes: Anicteric sclerae, moist conjunctiva ENMT: NC/AT Oropharynx clear, no erythema, exudates Neck: Supple, FROM, no masses, or JVD No thyromegaly Lungs: Clear to auscultation Clear to percussion Normal respiratory effort, no accessory muscle use Cardiovascular: Heart regular in rate and rhythm, No murmurs, gallops, or rubs No peripheral edema Abdominal: Soft Tender to palpation epigastric area Normoactive bowel sounds No palpable mass No abdominal wall hernia noted Skin: Normal temperature, tone, texture, turgor No induration No subcutaneous nodules No rash, lesions No ulcers Extremities: No digital cyanosis No clubbing Pedal pulses intact and symmetrical Radial pulses intact and symmetrical Psychiatric: Alert and oriented to person, place and time Appropriate affect - Labs CBC & Chem 7: 06/11/17 18:05 06/13/17 06:40 Labs: Abnormal Lab Results - Last 24 Hours (Table) 06/11/17 06/12/17 06/12/17 Range/Units 23:35 11:28 15:24 Sodium 135 L (137-145) mmol/L Chloride 111 H (98-107) mmol/L Carbon Dioxide 17 L (22-30) mmol/L BUN 8 L (9-20) mg/dL Glucose 114 H (74-99) mg/dL POC Glucose (mg/dL) 178 H (75-99) mg/dL Hemoglobin A1c 8.7 H (4.2-6.1) % Calcium 8.3 L (8.4-10.2) mg/dL 06/12/17 06/12/17 06/12/17 Range/Units 15:29 16:36 20:54 Sodium (137-145) mmol/L Chloride (98-107) mmol/L Carbon Dioxide (22-30) mmol/L BUN (9-20) mg/dL Glucose (74-99) mg/dL POC Glucose (mg/dL) 110 H 121 H 375 H (75-99) mg/dL Hemoglobin A1c (4.2-6.1) % Calcium (8.4-10.2) mg/dL 06/13/17 06/13/17 Range/Units 06:40 06:53 Sodium (137-145) mmol/L Chloride 111 H (98-107) mmol/L Carbon Dioxide 18 L (22-30) mmol/L BUN (9-20) mg/dL Glucose 101 H (74-99) mg/dL POC Glucose (mg/dL) 109 H (75-99) mg/dL Hemoglobin A1c (4.2-6.1) % Calcium (8.4-10.2) mg/dL Microbiology - Last 24 Hours (Table) 06/12/17 11:28 Stool for WBCs - Final Stool 06/12/17 11:28 Stool Culture - Preliminary Stool Assessment and Plan (1) DKA (diabetic ketoacidoses) Narrative/Plan: DKA present on admission, secondary to nausea vomiting and abdominal pain, resolved. Continue insulin. Status: Acute (2) Gastroenteritis Narrative/Plan: Nausea vomiting and diarrhea, possibly secondary to gastroenteritis versus gastroparesis. It has been chronic issue for patient, GI has been consulted and plan EGD for tomorrow. Continue supportive treatment with IV fluids, antiemetics, Protonix and Imodium. Stool studies negative for infectious process Status: Acute (3) Hyperkalemia Narrative/Plan: Resolved, monitor. Status: Acute (4) Hypomagnesemia Narrative/Plan: Replaced. Status: Acute (5) Type 1 diabetes mellitus on insulin therapy Narrative/Plan: Continue current insulin regimen. Status: Chronic Plan: Possible discharge home tomorrow after EGD if tolerates oral intake. Time with Patient: Less than 30
[2017-06-13 16:41] LABS: Glucose,Whole Blood 178 mg/dL (75-99)
[2017-06-13] MEDS: ONDANSETRON 4 MG/2 ML VIAL IVP PRN (17:12)
[2017-06-13] MEDS: ZOLPIDEM 10 MG TAB PO SCH (21:09)
[2017-06-13] MEDS: PANTOPRAZOLE 40 MG/10 ML VIAL IVP SCH (21:11)
[2017-06-13 21:14] LABS: Glucose,Whole Blood 324 mg/dL (75-99)
[2017-06-13] MEDS: INSULIN GLARGINE 100 UNIT/ML 10 ML VIAL SQ SCH (22:01)
[2017-06-14] MEDS: HEPARIN SODIUM,PORCINE 5,000 UNIT/ML 1 ML VIAL SQ SCH ×3 (00:17→15:23)
[2017-06-14] MEDS: HYDROmorphone 1 MG/ML 1 ML SYRINGE IVP PRN ×5 (04:11→22:01)
[2017-06-14 07:23] LABS: Glucose,Whole Blood 87 mg/dL (75-99)
[2017-06-14] MEDS: INSULIN LISPRO (humaLOG) 300 UNIT/3 ML VIAL SQ SCH ×4 (07:36→22:01)
[2017-06-14 07:58] LABS: Anion Gap 9 mmol/L; Blood Urea Nitrogen 13 mg/dL (9-20); Calcium 8.8 mg/dL (8.4-10.2); Carbon Dioxide 23 mmol/L (22-30); Chloride 107 mmol/L (98-107); Glucose 79 mg/dL (74-99); Non-African American GFR(MDRD) >60 (>60 ml/min/1.73 sqM); Sodium 139 mmol/L (137-145)
[2017-06-14 08:05] LABS: Potassium 4.9 mmol/L (3.5-5.1)
[2017-06-14] MEDS: LOPERAMIDE 2 MG CAP PO SCH ×4 (08:16→22:01)
[2017-06-14] MEDS: PANTOPRAZOLE 40 MG/10 ML VIAL IVP SCH (08:16)
[2017-06-14] MEDS ORDERED: DEXTROSE 50%-WATER 50 ML SYRINGE IVP STA (10:25)
[2017-06-14 10:26] LABS: Glucose,Whole Blood 66 mg/dL (75-99)
[2017-06-14] MEDS ORDERED: DEXTROSE 10 % IN WATER 250 ML IV STA (10:26)
[2017-06-14] MEDS: ONDANSETRON 4 MG/2 ML VIAL IVP PRN (10:28)
[2017-06-14 10:55] LABS: Glucose,Whole Blood 196 mg/dL (75-99)
[2017-06-14] MEDS ORDERED: DEXTROSE 5%-0.9% NACL 1,000 ML IV SCH (11:15)
[2017-06-14 11:57] LABS: Glucose,Whole Blood 100 mg/dL (75-99)
[2017-06-14] MEDS ORDERED: IV FLUID CONTINUATION 1,000 ML IV ONE (12:31)
[2017-06-14] MEDS ORDERED: LIDOCAINE 1% INJ 10MG/ML (20 ML MDV) ONE (12:31)
[2017-06-14] MEDS ORDERED: PROPOFOL 10 MG/ML 20 ML VIAL IV ONE (12:31)
--- NOTE | 2017-06-14 12:51 | P.PCN ---
Date of Procedure: 06/14/17 Preoperative Diagnosis: Postoperative Diagnosis: Procedure(s) Performed: BRIEF HISTORY: Patient is a 32-year-old, pleasant, white male, admitted hospital with acute DKA. Has been completed severe epigastric pain for the last 5 years duration and has been on Nexium 20 mg daily despite which remains symptomatic. The patient has been progressively getting worse. He is hence scheduled for an upper endoscopy to evaluate further. PROCEDURE PERFORMED: Esophagogastroduodenoscopy with biopsy. PREOPERATIVE DIAGNOSIS: Chronic epigastric pain and intermittent nausea vomiting for 5 years duration. IV sedation per anesthesia. PROCEDURE: After informed consent was obtained, the patient was brought into the endoscopy unit. IV sedation was administered by Anesthesia under continuous monitoring. Initially the Olympus GIF-140 video endoscope was inserted into the mouth. Esophagus intubated without any difficulty. It was gradually advanced into the stomach and duodenum and carefully examined. The bulb and the second part of the duodenum appeared normal. Biopsies were done from this area to rule out celiac disease. The scope at this time was withdrawn to the stomach, adequately insufflated with air, and upon careful examination, mucosa of the antrum, had mild gastritis and biopsies for H. pylori were done. The body, cardia and the fundus appeared normal. The scope was then withdrawn into the esophagus. The GE junction was located at 46 cm from the incisors. There were linear erosions noted in the distal esophagus consistent with LA grade B reflux esophagitis. The rest of the esophagus appeared normal and the patient tolerated the procedure well. IMPRESSION: 1. Mild antral gastritis. 2. LA grade B reflux esophagitis. RECOMMENDATIONS: The findings of this examination were discussed with the patient as well as his family. He will increase the Nexium to 20 mg twice daily and follow antireflux measures. He was also advised to follow with the biopsy results. His diet will be advanced as tolerated. Implants: Indications for Procedure: Operative Findings: Description of Procedure:
[2017-06-14] MEDS: SODIUM CHLORIDE 0.9% 1,000 ML IV SCH (13:15)
--- NOTE | 2017-06-14 16:18 | P.PN ---
Subjective Principal diagnosis: Patient is seen and examined in follow-up for intractable vomiting and epigastric abdominal pain 33-year-old male with past medical history of type 1 diabetes mellitus presented to emergency department due to intractable nausea and vomiting of 2-3 days' duration described as nonbloody however bilious. Patient reports that he wasn't able to tolerate by mouth intake and he notes that his blood sugar has been running high. This was associated with abdominal pain mainly epigastric described as sharp in nature 5-7 out of 10 in severity. Patient reports that he has been vomiting for long duration usually gets 3-4 attacks of vomiting every week usually smoking marijuana helps with the symptoms. 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 Patient also described gastrocolic reflex every time he eats he will have a bowel movement. Patient presented to the emergency department and was found to be in DKA and was admitted for further care and workup for his DKA and intractable vomiting. Patient had EGD done today showed antral gastritis and reflux esophagitis. GI recommended to advance his diet and continue with PPIs. Patient was seen half an hour after the procedure which tolerated well who still reports some epigastric discomfort but he is eager to eat however he is worried about vomiting. Objective - Vital Signs Vital signs: Vital Signs Temp 98.2 F 06/14/17 15:00 Pulse 66 06/14/17 15:00 Resp 16 06/14/17 15:00 BP 121/72 06/14/17 15:00 Pulse Ox 97 06/14/17 15:00 Intake & Output 06/13/17 06/14/17 06/14/17 18:59 06:59 18:59 Intake Total 1667 1400 100 Balance 1667 1400 100 Intake: IV 1200 100 Sodium Chloride 0.9% 1, 1200 000 ml @ 100 mls/hr IV . Q10H GORGE Rx#:[id number] Intake, IV Titration 750 Amount Sodium Chloride 0.9% 1, 750 000 ml @ 100 mls/hr IV . Q10H GORGE Rx#:[id number] Oral 917 200 Other: Voiding Method Toilet Toilet # Voids 2 2 Constitutional: Not in acute distress, pleasant, conversant Lungs: Clear to auscultation bilaterally, clear to percussion, normal respiratory effort no use of accessory muscles Cardiovascular: Regular rate and rhythm, no murmurs, no gallops, no rubs, no peripheral leg edema Gastrointestinal: Soft, slight discomfort to palpation of the epigastric region no rebound tenderness, no palpable hepatosplenomegally, bowel sounds positive, no abdominal wall hernias Extremities: No digital cyanosis, ischemia, or clubbing, no calf muslce tenderness Psych: Alert, oriented to place, person and time Labs reviewed EGD results reviewed - Labs CBC & Chem 7: 06/11/17 18:05 06/14/17 06:53 Labs: Abnormal Lab Results - Last 24 Hours (Table) 06/13/17 06/13/17 06/14/17 Range/Units 16:33 21:12 10:21 POC Glucose (mg/dL) 178 H 324 H 66 L (75-99) mg/dL 06/14/17 06/14/17 Range/Units 10:54 11:55 POC Glucose (mg/dL) 196 H 100 H (75-99) mg/dL Assessment and Plan (1) Esophagitis, acute Status: Acute (2) Gastritis Status: Acute (3) Type 1 diabetes mellitus on insulin therapy Narrative/Plan: Blood sugar seems to be controlled now continue with insulin sliding scale and long-acting insulin Status: Chronic (4) DKA (diabetic ketoacidoses) Status: Resolved (5) DVT prophylaxis Narrative/Plan: Heparin subcu 3 times a day Status: Acute Plan: Biopsies performed await results GI recommended to advance diet as tolerated PPI twice a day Anti-reflex measures Possible discharge in the morning if patient tolerates diet Reglan to control nausea and vomiting which will help with promoting gastric motility
[2017-06-14 16:59] LABS: Glucose,Whole Blood 65 mg/dL (75-99)
[2017-06-14 17:21] LABS: Glucose,Whole Blood 89 mg/dL (75-99)
[2017-06-14] MEDS: METOCLOPRAMIDE 10 MG TAB PO SCH (17:21)
[2017-06-14] MEDS: PANTOPRAZOLE 40 MG TABLET PO SCH (17:21)
[2017-06-14] MEDS: HYDROcodone/APAP 5-325MG 1 EACH TAB PO PRN (19:42)
[2017-06-14 19:55] LABS: Glucose,Whole Blood 180 mg/dL (75-99)
[2017-06-14] MEDS: INSULIN GLARGINE 100 UNIT/ML 10 ML VIAL SQ SCH (22:00)
[2017-06-14] MEDS: ZOLPIDEM 10 MG TAB PO SCH (22:01)
[2017-06-15] MEDS: HEPARIN SODIUM,PORCINE 5,000 UNIT/ML 1 ML VIAL SQ SCH ×4 (01:12→22:30)
[2017-06-15] MEDS: ONDANSETRON 4 MG/2 ML VIAL IVP PRN ×2 (03:07→19:14)
[2017-06-15] MEDS: HYDROmorphone 1 MG/ML 1 ML SYRINGE IVP PRN ×5 (03:31→20:53)
[2017-06-15 05:27] VITALS: RESP 16
[2017-06-15] MEDS: SODIUM CHLORIDE 0.9% 1,000 ML IV SCH ×3 (06:34→20:56)
[2017-06-15] MEDS: INSULIN LISPRO (humaLOG) 300 UNIT/3 ML VIAL SQ SCH ×4 (07:17→21:01)
[2017-06-15] MEDS: PANTOPRAZOLE 40 MG TABLET PO SCH ×2 (07:18→17:37)
[2017-06-15] MEDS: METOCLOPRAMIDE 10 MG TAB PO SCH (07:18)
[2017-06-15 07:30] LABS: Glucose,Whole Blood 66 mg/dL (75-99)
[2017-06-15 07:30] LABS: Glucose,Whole Blood 71 mg/dL (75-99)
[2017-06-15] MEDS ORDERED: DEXTROSE 10 % IN WATER 250 ML IV STA (07:44)
[2017-06-15] MEDS: LOPERAMIDE 2 MG CAP PO SCH ×4 (08:00→22:29)
[2017-06-15 08:23] LABS: Basophils % (A) 1 %; Eosinophils # (A) 0.2 k/uL (0-0.7); Eosinophils % (A) 4 %; HDW 2.74; HGB 13.3 gm/dL (13.0-17.5); Luc # (Auto) 0.17; Luc % (Auto) 4; Lymphocytes # (A) 1.8 k/uL (1.0-4.8); Lymphocytes % (A) 38 %; MCH 31.1 pg (25.0-35.0); MCHC 34.9 g/dL (31.0-37.0); Mean Platelet Volume 8.1; Monocytes # (A) 0.2 k/uL (0-1.0); Monocytes % (A) 5 %; Neutrophils # (A) 2.3 k/uL (1.3-7.7); Neutrophils % (A) 49 %; RBC 4.28 m/uL (4.30-5.90); RDW 13.3 % (11.5-15.5); WBC 4.7 k/uL (3.8-10.6); WBC (Perox) 4.67
[2017-06-15] MEDS: PROMETHAZINE INJ 25 MG in SODIUM CHLORIDE 0.9% 50 ML IVPB PRN ×3 (08:30→20:52)
[2017-06-15 08:49] LABS: Anion Gap 11 mmol/L; Calcium 8.8 mg/dL (8.4-10.2); Carbon Dioxide 22 mmol/L (22-30); Chloride 108 mmol/L (98-107); Glucose 96 mg/dL (74-99); Non-African American GFR(MDRD) >60 (>60 ml/min/1.73 sqM); Sodium 141 mmol/L (137-145)
[2017-06-15 08:54] LABS: Blood Urea Nitrogen 9 mg/dL (9-20); Potassium 4.5 mmol/L (3.5-5.1)
[2017-06-15 09:18] LABS: Glucose,Whole Blood 154 mg/dL (75-99)
--- NOTE | 2017-06-15 10:52 | P.PN ---
Subjective Principal diagnosis: Patient is seen and examined in follow-up for intractable vomiting , hypoglycemia and epigastric abdominal pain 33-year-old male with past medical history of type 1 diabetes mellitus presented to emergency department due to intractable nausea and vomiting of 2-3 days' duration described as nonbloody however bilious. Patient reports that he wasn't able to tolerate by mouth intake and he notes that his blood sugar has been running high. This was associated with abdominal pain mainly epigastric described as sharp in nature 5-7 out of 10 in severity. Patient reports that he has been vomiting for long duration usually gets 3-4 attacks of vomiting every week usually smoking marijuana helps with the symptoms. 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 Patient also described gastrocolic reflex every time he eats he will have a bowel movement. Patient presented to the emergency department and was found to be in DKA and was admitted for further care and workup for his DKA and intractable vomiting. Patient had EGD done yesterday showed antral gastritis and reflux esophagitis. GI recommended to advance his diet and continue with PPIs. Patient seen and examined today, she reports some improvement in his symptoms however is still having some attacks of vomiting without any abdominal pain today, he is still having poor by mouth intake resulting in hypoglycemia requiring IV dextrose. Patient will try today to increase his by mouth intake and will reassess later to see if he is ready and stable for discharge later today Objective - Vital Signs Vital signs: Vital Signs Temp 96.8 F L 06/15/17 07:00 Pulse 76 06/15/17 07:00 Resp 16 06/15/17 07:00 BP 125/81 06/15/17 07:00 Pulse Ox 100 06/15/17 07:00 Intake & Output 06/14/17 06/15/17 06/15/17 18:59 06:59 18:59 Intake Total 100 1600 Output Total 1400 Balance 100 200 Intake: IV 100 Oral 1600 Output: Urine 1400 Other: Voiding Method Toilet Toilet # Voids 2 Constitutional: Not in acute distress, pleasant, conversant, vital signs stable Respiratory: Clear to auscultation bilaterally, no wheezes, no crackles, no rhonchi, clear to percussion, normal respiratory effort without use of accessory muscles Cardiovascular: Regular rate and rhythm, no murmurs, no gallops, no rubs, no peripheral leg edema Abdomen: Bowel sounds positive, soft, no tenderness to palpation, no palpable masses, no palpable hepatosplenomegally Extremities: No digital cyanosis, ischemia or clubbing, no calf muscle tenderness bilaterally Psych: Alert, oriented to place, person and time labs reviewed - Labs CBC & Chem 7: 06/15/17 07:48 06/15/17 07:48 Labs: Abnormal Lab Results - Last 24 Hours (Table) 06/14/17 06/14/17 06/14/17 Range/Units 10:54 11:55 16:49 RBC (4.30-5.90) m/uL Hct (39.0-53.0) % Chloride (98-107) mmol/L POC Glucose (mg/dL) 196 H 100 H 65 L (75-99) mg/dL 06/14/17 06/15/17 06/15/17 Range/Units 19:53 07:11 07:27 RBC (4.30-5.90) m/uL Hct (39.0-53.0) % Chloride (98-107) mmol/L POC Glucose (mg/dL) 180 H 66 L 71 L (75-99) mg/dL 06/15/17 06/15/17 06/15/17 Range/Units 07:48 07:48 09:15 RBC 4.28 L (4.30-5.90) m/uL Hct 38.0 L (39.0-53.0) % Chloride 108 H (98-107) mmol/L POC Glucose (mg/dL) 154 H (75-99) mg/dL Assessment and Plan (1) Esophagitis, acute Status: Acute (2) Gastritis Status: Acute (3) Type 1 diabetes mellitus on insulin therapy Status: Chronic (4) DKA (diabetic ketoacidoses) Status: Resolved (5) DVT prophylaxis Narrative/Plan: Heparin subcu 3 times a day Status: Acute Plan: Biopsies performed await results, OP FOllow up with GI PPI twice a day Anti-reflux measures continue with phenergan , and PRN reglan I discussed the case with GI and they recommended to continue with PPI twice a day and add Carafate. Continue to monitor today, GI cleared the patient for discharge and follow up outpatient. If patient blood sugar stabilizes and tolerating PO intake , then patient could be discharged either later today , or early tomorrow.
[2017-06-15 11:59] LABS: Glucose,Whole Blood 117 mg/dL (75-99)
[2017-06-15] MEDS: SUCRALFATE 1 GM TAB PO SCH ×2 (12:25→17:37)
[2017-06-15 17:05] LABS: Glucose,Whole Blood 202 mg/dL (75-99)
[2017-06-15] MEDS: INSULIN GLARGINE 100 UNIT/ML 10 ML VIAL SQ SCH (21:00)
[2017-06-15 21:03] LABS: Glucose,Whole Blood 260 mg/dL (75-99)
--- NOTE | 2017-06-15 21:43 | PN ---
DATE OF SERVICE: 06/15/2017 REQUESTING PHYSICIAN: None. The patient is a 32-year-old pleasant white male with longstanding history of diabetes mellitus, admitted to the hospital with acute DKA. While in the hospital he has been complaining of chronic epigastric pain for the last five years duration which lately has been progressively getting worse. He, hence, underwent an upper endoscopy yesterday which showed evidence of mild reflux esophagitis and mild gastritis. This morning the patient states that he continues to have the same abdominal pain despite being on PPIs twice daily. 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 Denies any fever, chills, night sweats. PHYSICAL EXAM: Appears comfortable, in no apparent distress. VITAL SIGNS: Stable. Blood pressure is 119/56, pulse rate 88, temperature 97.4. HEENT: Unremarkable. Conjunctivae pink. Sclerae anicteric. Oral cavity - no lesions. NECK: No JVD or lymph node enlargement. CHEST: Clear to auscultation. HEART: Regular rate and rhythm. ABDOMEN: Soft. Bowel sounds are positive. No organomegaly. Mild tenderness in the epigastric area. EXTREMITIES: No pedal edema. SKIN: No rashes. NEURO: Alert and oriented x3. No focal deficits. LABS: Today WBC is 4.7, hemoglobin 13.3, platelets normal. Basic metabolic panel is within normal limits. IMPRESSION: 1. Acute diabetic ketoacidosis, resolved. 2. Severe epigastric pain, probably related to gastroesophageal reflux disease and patient may have a component of diabetic gastroparesis. Upper endoscopy done yesterday showed mild antral gastritis and reflux esophagitis but no evidence of retrained food in the stomach. He still remains symptomatic with epigastric pain despite being on Protonix 40 mg twice daily RECOMMENDATIONS: 1. Continue with Protonix 40 mg twice a day. 2. Carafate 1 gm four times a day. 3. Small frequent meals. 4. He can be discharged home with an outpatient follow up in two weeks. KAITLIN
[2017-06-15] MEDS: ZOLPIDEM 10 MG TAB PO SCH (22:29)
[2017-06-16] MEDS: HYDROmorphone 1 MG/ML 1 ML SYRINGE IVP PRN ×4 (00:28→12:23)
[2017-06-16] MEDS: PROMETHAZINE INJ 25 MG in SODIUM CHLORIDE 0.9% 50 ML IVPB PRN ×2 (03:47→10:17)
[2017-06-16] MEDS: SUCRALFATE 1 GM TAB PO SCH ×2 (06:57→12:38)
[2017-06-16] MEDS: PANTOPRAZOLE 40 MG TABLET PO SCH (06:58)
[2017-06-16] MEDS: HEPARIN SODIUM,PORCINE 5,000 UNIT/ML 1 ML VIAL SQ SCH (06:58)
[2017-06-16] MEDS: SODIUM CHLORIDE 0.9% 1,000 ML IV SCH ×2 (06:59→08:24)
[2017-06-16 07:37] LABS: Glucose,Whole Blood 71 mg/dL (75-99)
[2017-06-16] MEDS: INSULIN LISPRO (humaLOG) 300 UNIT/3 ML VIAL SQ SCH ×2 (08:08→12:24)
[2017-06-16] MEDS: LOPERAMIDE 2 MG CAP PO SCH ×2 (08:08→12:38)
[2017-06-16 08:48] VITALS: BP 122/73; PULSE 63; TEMP 97.5
[2017-06-16 11:41] LABS: Glucose,Whole Blood 228 mg/dL (75-99)
--- NOTE | 2017-06-16 15:56 | PN ---
The patient is a 32-year-old white male transferred with DKA and was having severe epigastric pain associated with nausea and vomiting. He had an upper endoscopy done yesterday that showed evidence of mild esophagitis and diskitis. He was started on Carafate 1 gram four times daily in addition to antiemetics as well as Protonix. Patient was doing well through the night. This morning he had a couple episodes of nausea and vomiting. He still has epigastric discomfort. On physical examination, appears comfortable in no apparent distress. Vital signs are stable. Blood pressure is 138/69, pulse rate is 65, temperature 97.8. HEENT: Unremarkable. Conjunctivae pink. Sclerae clear. Oral cavity, no lesions. NECK: No JVD or lymph node enlargement. CHEST: Clear to auscultation. HEART: Regular rate and rhythm. ABDOMEN: Soft. It was nontender. Mild tenderness in the epigastric area. Bowel sounds are positive. No organomegaly. EXTREMITIES: No pedal edema. SKIN: No rashes. NEURO: Alert and oriented x3. No focal deficits. No labs available from today. IMPRESSION: Epigastric pain associated with intermittent nausea and vomiting for the last several days duration. The patient was admitted to the hospital with DKA which has since resolved. He is presently on Protonix as well as antiemetics with Phenergan and [place]idan with some help. He was able to eat his breakfast this morning, but now has some epigastric discomfort. He was started on Carafate 1 gram four times yesterday. RECOMMENDATIONS: Discussed the plan with ( ). At this time I agree that he can be discharged home with antiemetics and proton pump inhibitors and follow up in the office as needed. KAITLIN
--- NOTE | 2017-06-16 19:43 | P.DS ---
Providers Date of admission: 06/11/17 19:10 Expected date of discharge: 06/16/17 Attending physician: Maryjane Gee DO Consults: 06/12/17 18:13 Consult Physician Routine Consulting Provider: Chris Warner Consult Reason/Comments: epigastric pain Do you want consulting provider notified?: Yes Primary care physician: Stated None - Discharge Diagnosis(es) (1) Esophagitis, acute Status: Acute (2) Gastritis Status: Acute (3) Type 1 diabetes mellitus on insulin therapy Status: Chronic Priority: Medium (4) DKA (diabetic ketoacidoses) Status: Resolved (5) DVT prophylaxis Status: Acute (6) Diabetic gastroparesis Status: Acute Hospital Course: 33-year-old male with past medical history of type 1 diabetes mellitus presented to emergency department due to intractable nausea and vomiting of 2-3 days' duration described as nonbloody however bilious. Patient reports that he wasn't able to tolerate by mouth intake and he notes that his blood sugar has been running high. This was associated with abdominal pain mainly epigastric described as sharp in nature 5-7 out of 10 in severity. Patient reports that he has been vomiting for long duration usually gets 3-4 attacks of vomiting every week usually smoking marijuana helps with the symptoms. 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 Patient also described gastrocolic reflex every time he eats he will have a bowel movement. Patient presented to the emergency department and was found to be in DKA and was admitted for further care and workup for his DKA and intractable vomiting. Patient had EGD done showed antral gastritis and reflux esophagitis. GI recommended to advance his diet and continue with PPIs. Patient is tolerating diet however he continues to have bouts of vomiting. Recommendations were to continue with small frequent meals daily. Trial of Reglan did not provide any benefit. Patient reports and he preferred to continue with Phenergan for his symptoms of nausea and vomiting. Constitutional: vital signs stable, Not in acute distress, pleasant, conversant Lungs: Clear to auscultation bilaterally, clear to percussion, normal respiratory effort no use of accessory muscles Cardiovascular: Regular rate and rhythm, no murmurs, no gallops, no rubs, no peripheral edema Gastrointestinal: Soft, no tenderness to palpation, no palpable hepatosplenomegally, bowel sounds positive, no abdominal wall hernias Psych: Alert, oriented to place, person and time I had further discussion today with Dr. Green from GI she agrees on referring patient to tertiary centers for treatment of gastroparesis and to consider Botox injection for pacemaker insertion. Patient is to continue on PPI and Carafate. The recommendations were conveyed to the patient and his mother who verbalized understanding and agreement. More than 35 minutes were spent discharging this patient, and more than 50% of the time was spent in counseling the patient and family and in coordinating care. Patient Condition at Discharge: Serious Plan - Discharge Summary New Discharge Prescriptions: New Pantoprazole [Protonix] 40 mg PO AC-BID #60 tab Promethazine [Phenergan] 25 mg PO Q6HR PRN #60 tablet PRN Reason: Nausea And Vomiting Sucralfate [Carafate] 1 gm PO AC-TID #120 tab Continue Insulin Aspart [NovoLOG] See Protocol SQ AC-TID Zolpidem [Ambien] 10 mg PO HS Insulin Glargine,Hum.rec.anlog [Lantus Solostar] 30 unit SQ HS Discharge Medication List Insulin Aspart [NovoLOG] See Protocol SQ AC-TID 03/05/17 [History] Zolpidem [Ambien] 10 mg PO HS 03/21/17 [History] Insulin Glargine,Hum.rec.anlog [Lantus Solostar] 30 unit SQ HS 04/17/17 [History ] Pantoprazole [Protonix] 40 mg PO AC-BID #60 tab 06/16/17 [Rx] Promethazine [Phenergan] 25 mg PO Q6HR PRN #60 tablet 06/16/17 [Rx] Sucralfate [Carafate] 1 gm PO AC-TID #120 tab 06/16/17 [Rx] Follow up Appointment(s)/Referral(s): Shraddha Elizalde MD [STAFF PHYSICIAN] - 1 Week (Patient to call Dr. Elizalde's office Saturday morning to schedule follow up appointment. The office is closed at time of discharge.) None,Stated [Primary Care Provider] - 1-2 days Patient Instructions/Handouts: Sucralfate (By mouth), Promethazine (By mouth), Pantoprazole (By mouth), Diabetic Gastroparesis (GEN), Diabetic Ketoacidosis (DC ), Hyperkalemia (DC), Hypomagnesemia (DC) Activity/Diet/Wound Care/Special Instructions: small frequent meals , avoid loads of carbs activity as tolerated Discharge Disposition: HOME SELF-CARE
[2017-06-18 03:09] LABS: Cryptosporidium parvum Not detected (Not detected); Isospora belli Not detected (Not detected); Microsporidium Not detected (Not detected); Routine Ova and Parasites Not detected
== END 2017-06-16 14:20 | disposition home or self-care (01) | DRG 639 ==
LOC: EC 16:42 → 6SEL 19:10 → 3SUR 06-12 22:41 → 5MS5E 06-15 18:03
PROVIDERS: ADMIT Internal Medicine; ATTEND Internal Medicine
PROC: 0DB68ZX Excision of Stomach, Via Natural or Artificial Opening Endoscopic, Diagnostic (ICD-10-PCS; principal; 2017-06-14 17:10)
DX: E10.10 Type 1 diabetes mellitus with ketoacidosis without coma (principal); E10.649 Type 1 diabetes mellitus with hypoglycemia without coma; K31.84 Gastroparesis; E83.42 Hypomagnesemia; E87.5 Hyperkalemia; E10.42 Type 1 diabetes mellitus with diabetic polyneuropathy; E10.43 Type 1 diabetes mellitus with diabetic autonomic (poly)neuropathy; E86.0 Dehydration; G89.29 Other chronic pain; K21.0 Gastro-esophageal reflux disease with esophagitis; K29.60 Other gastritis without bleeding; Z79.4 Long term (current) use of insulin; Z79.899 Other long term (current) drug therapy; Z88.5 Allergy status to narcotic agent
CPT/HCPCS: 36415; 43239; 71020; 74020; 80048; 80051; 80053; 81003; 82009; 82150; 82272; 82565; 82803; 82947; 83036; 83605; 83690; 83735; 84100; 84484; 84520; 85025; 87045; 87046; 87177; 87207; 87209; 87324; 88305; 88342; 89055; 93005; 96361; 96365; 99285

== ENCOUNTER 2018-09-16 09:35 | Inpatient (IN) | payer OTHER ==
[2018-09-16] MEDS ORDERED: SODIUM CHLORIDE 0.9% 1,000 ML IV STA (09:59)
[2018-09-16] MEDS ORDERED: KETOROLAC 30 MG/ML 1 ML VIAL IVP STA (10:00)
--- NOTE | 2018-09-16 10:18 | ED ---
Abdominal Pain HPI - General Chief Complaint: Abdominal Pain Stated Complaint: poss kidney stones, diabetic Time Seen by Provider: 09/16/18 09:58 Source: patient Mode of arrival: ambulatory Limitations: no limitations - History of Present Illness Initial Comments: 33-year-old male with past medical history of type 1 diabetes, right sided pelvic kidney and previous kidney stone present today for chief complaint of left sided flank/back pain and hematuria x 12 hours. Pt states that at 11pm he woke up with left sided flank pain that felt identical to when he had a kidney stone in the past, he states he also took his sugar at this time and it was 600, he states it is down to 230 this morning. Pt admits to vomiting due to pain. Patient denies abdominal pain, epigastric pain, fever, chills, night sweats, diarrhea, chest pain, shortness of breath, headache, visual changes, dizziness, confusion or any other associated symptoms at this time. Upon arrival pt appears uncomfortable. VS within acceptable limits. Pt appears nontoxic. Pt states he tolerated toradol previous as well as dilaudid despite morphine and rofecoxib allergies. - Related Data Home Medications Medication Instructions Recorded Confirmed Insulin Aspart [NovoLOG See Protocol SQ AC-TID 03/05/17 09/16/18 (formulary)] Zolpidem [Ambien] 10 mg PO HS 03/21/17 09/16/18 Insulin Glargine,Hum.rec.anlog 30 unit SQ DAILY 04/17/17 09/16/18 [Lantus Solostar] ALPRAZolam [Xanax] 1 mg PO HS PRN 09/16/18 09/16/18 Ibuprofen [Motrin Ib] 400 mg PO Q6H PRN 09/16/18 09/16/18 Allergies Allergy/AdvReac Type Severity Reaction Status Date / Time morphine Allergy Rash/Hives Verified 09/16/18 10:18 rofecoxib [From Vioxx] Allergy DIZZINESS Verified 09/16/18 10:18 codeine AdvReac Rash/Hives Verified 09/16/18 10:18 [From Tylenol-Codeine #3] tramadol AdvReac Nausea & Verified 09/16/18 10:18 Vomiting Review of Systems ROS Statement: Those systems with pertinent positive or pertinent negative responses have been documented in the HPI. ROS Other: All systems not noted in ROS Statement are negative. Constitutional: Denies: fever, chills ENT: Denies: ear pain, throat pain Respiratory: Denies: cough, dyspnea, wheezes, hemoptysis, stridor Cardiovascular: Denies: chest pain, palpitations, dyspnea on exertion Endocrine: Denies: fatigue Gastrointestinal: Reports: nausea, vomiting. Denies: abdominal pain, diarrhea, constipation, hematemesis, melena, hematochezia Genitourinary: Reports: urgency, hematuria. Denies: dysuria, frequency, testicular pain Skin: Denies: rash Neurological: Denies: headache, weakness, numbness, paresthesias, confusion Past Medical History Past Medical History: Diabetes Mellitus Additional Past Medical History / Comment(s): type 1, pelvic kidney, hx of renal calculi (stones) History of Any Multi-Drug Resistant Organisms: None Reported Past Surgical History: Cholecystectomy, Orthopedic Surgery Additional Past Surgical History / Comment(s): left knee x6 Past Anesthesia/Blood Transfusion Reactions: No Reported Reaction Past Psychological History: No Psychological Hx Reported Smoking Status: Never smoker Past Alcohol Use History: Rare Past Drug Use History: Marijuana - Past Family History Sister(s) Family Medical History: Cancer Brother(s) Family Medical History: Cancer General Exam - General Exam Comments Initial Comments: General: The patient is awake and alert, in no distress, and does not appear acutely ill. Eye: Pupils are equal, round and reactive to light, extra-ocular movements are intact. No nystagmus. There is normal conjunctiva bilaterally. No signs of icterus. Ears, nose, mouth and throat: There are moist mucous membranes and no oral lesions. Neck: The neck is supple, there is no tenderness or JVD. Cardiovascular: There is a regular rate and rhythm. No murmur, rub or gallop is appreciated. Respiratory: Lungs are clear to auscultation, respirations are non-labored, breath sounds are equal. No wheezes, stridor, rales, or rhonchi. Gastrointestinal: No noted diaphoresis, jaundice, pallor, protecting postures or squirming. Symmetrical pigmentation of abdomen without signs of inflammation, scars, or striae. Umbilicus mildline, inverted without swelling. No dilated veins. No noted abdominal distention. No visible masses. No peristalsis, aortic pulsations , or ventral hernia. Bowel sounds audible in all 4 quadrants, unremarkable. No tenderness to light or deep palpation of the abdomen or pelvis . Liver edge, not palpable. Spleen edge, right and left kidney not palpable. Superior bladder margin non-tender. Special Testing: Negative [place], [place], [place], [place], Left sided CVA tenderness. Digital rectal exam deferred. Negative anguiano turners or cullens sign Musculoskeletal: Normal ROM, no tenderness. Strength 5/5. Sensation intact. Radial pulses equal bilaterally 2+. Neurological: A&O x 3. CN II-XII intact, There are no obvious motor or sensory deficits. Coordination appears grossly intact. Speech is normal. Skin: Skin is warm and dry and no rashes or lesions are noted. Psychiatric: Cooperative, appropriate mood & affect, normal judgment. Limitations: no limitations Course Vital Signs 09/16/18 09/16/18 09/16/18 09:46 11:30 12:00 Temperature 98.4 F Pulse Rate 96 81 75 Respiratory 18 20 18 Rate Blood Pressure 135/83 142/84 119/89 O2 Sat by Pulse 97 99 99 Oximetry Medical Decision Making - Medical Decision Making Patient given Toradol for pain management, he stated that this did not alleviate pain. Patient states he previously tolerate Dilaudid was given .5mg he states this improved pain. KUB (-). CT revealed multiple renal calculi bilaterally. No obstructive calculi. Laboratory findings, 488 glucose. Anion gap 21. K+ 5.0. Acetone positive. Venous blood gas within acceptable limits. Urinalysis revealed plus for ketones, gross hematuria no nitrates. Patient given 2 bolus fluid. The next fluids to her milliliters an hour. Patient started on insulin drip. Pt admitted to floor for DKA and renal calculi. All findings discussed with patient. Patient denies questions at this time. Patient transferred to [facility]. Dr. Valentino accepted patient's admission after speaking with attending physician Dr. Dewitt. Dr. Dewitt is aware patient, case was discussed in detail no further recommendations at this time. Patient denies questions. - Lab Data Result diagrams: 09/16/18 10:28 09/16/18 10:28 Lab Results 09/16/18 09/16/18 09/16/18 Range/Units 10:28 10:28 10:28 WBC 8.2 (3.8-10.6) k/uL RBC 4.89 (4.30-5.90) m/uL Hgb 14.7 (13.0-17.5) gm/dL Hct 46.6 (39.0-53.0) % MCV 95.3 (80.0-100.0) fL MCH 30.0 (25.0-35.0) pg MCHC 31.5 (31.0-37.0) g/dL RDW 13.3 (11.5-15.5) % Plt Count 309 (150-450) k/uL Neutrophils % 75 % Lymphocytes % 18 % Monocytes % 4 % Eosinophils % 1 % Basophils % 0 % Neutrophils # 6.2 (1.3-7.7) k/uL Lymphocytes # 1.5 (1.0-4.8) k/uL Monocytes # 0.3 (0-1.0) k/uL Eosinophils # 0.1 (0-0.7) k/uL Basophils # 0.0 (0-0.2) k/uL Sodium 134 L (137-145) mmol/L Potassium 5.0 (3.5-5.1) mmol/L Chloride 100 (98-107) mmol/L Carbon Dioxide 22 (22-30) mmol/L Anion Gap 12 mmol/L BUN 21 H (9-20) mg/dL Creatinine 0.86 (0.66-1.25) mg/dL Est GFR (CKD-EPI)AfAm >90 (>60 ml/min/1.73 sqM) Est GFR (CKD-EPI)NonAf >90 (>60 ml/min/1.73 sqM) Glucose 488 H (74-99) mg/dL Calcium 9.4 (8.4-10.2) mg/dL Magnesium (1.6-2.3) mg/dL Total Bilirubin 0.4 (0.2-1.3) mg/dL AST 17 (17-59) U/L ALT 23 (21-72) U/L Alkaline Phosphatase 95 (38-126) U/L Total Protein 7.1 (6.3-8.2) g/dL Albumin 4.1 (3.5-5.0) g/dL Amylase 104 (30-110) U/L Lipase 150 (23-300) U/L Urine Color Yellow Urine Appearance Clear (Clear) Urine pH 5.5 (5.0-8.0) Ur Specific [place] 1.018 (1.001-1.035) Urine Protein Negative (Negative) Urine Glucose (UA) 4+ H (Negative) Urine Ketones Trace H (Negative) Urine Blood Large H (Negative) Urine Nitrite Negative (Negative) Urine Bilirubin Negative (Negative) Urine Urobilinogen <2.0 (<2.0) mg/dL Ur Leukocyte Esterase Negative (Negative) Urine RBC >182 H (0-5) /hpf Ur Squamous Epith Cells <1 (0-4) /hpf Urine Mucus Rare H (None) /hpf Acetone, Qual Positive (Negative) 09/16/18 Range/Units 10:28 WBC (3.8-10.6) k/uL RBC (4.30-5.90) m/uL Hgb (13.0-17.5) gm/dL Hct (39.0-53.0) % MCV (80.0-100.0) fL MCH (25.0-35.0) pg MCHC (31.0-37.0) g/dL RDW (11.5-15.5) % Plt Count (150-450) k/uL Neutrophils % % Lymphocytes % % Monocytes % % Eosinophils % % Basophils % % Neutrophils # (1.3-7.7) k/uL Lymphocytes # (1.0-4.8) k/uL Monocytes # (0-1.0) k/uL Eosinophils # (0-0.7) k/uL Basophils # (0-0.2) k/uL Sodium (137-145) mmol/L Potassium (3.5-5.1) mmol/L Chloride (98-107) mmol/L Carbon Dioxide (22-30) mmol/L Anion Gap mmol/L BUN (9-20) mg/dL Creatinine (0.66-1.25) mg/dL Est GFR (CKD-EPI)AfAm (>60 ml/min/1.73 sqM) Est GFR (CKD-EPI)NonAf (>60 ml/min/1.73 sqM) Glucose (74-99) mg/dL Calcium (8.4-10.2) mg/dL Magnesium 1.9 (1.6-2.3) mg/dL Total Bilirubin (0.2-1.3) mg/dL AST (17-59) U/L ALT (21-72) U/L Alkaline Phosphatase (38-126) U/L Total Protein (6.3-8.2) g/dL Albumin (3.5-5.0) g/dL Amylase (30-110) U/L Lipase (23-300) U/L Urine Color Urine Appearance (Clear) Urine pH (5.0-8.0) Ur Specific [place] (1.001-1.035) Urine Protein (Negative) Urine Glucose (UA) (Negative) Urine Ketones (Negative) Urine Blood (Negative) Urine Nitrite (Negative) Urine Bilirubin (Negative) Urine Urobilinogen (<2.0) mg/dL Ur Leukocyte Esterase (Negative) Urine RBC (0-5) /hpf Ur Squamous Epith Cells (0-4) /hpf Urine Mucus (None) /hpf Acetone, Qual (Negative) - EKG Data EKG Comments: A 12-lead EKG was performed and shows the following: Rate is 75 bpm, and rhythm is normal sinus. There are normal QRS complexes and normal R-wave progression. ST segments have mild elevation more consistent with early repolarization, no depression, and TX segments appear normal. Ventricular rate 75 bpm TX interval 112 ms, QRS duration 98 ms, QT/QTC 380/424 ms. EKG interpretted by Dr. Chad Dewitt and myself. Disposition Clinical Impression: DKA, type 1, Renal calculi, Hematuria, Left flank pain Disposition: ADMITTED IP TO THIS [facility] Is patient prescribed a controlled substance at d/c from ED?: No Decision to Admit Reason: Admit from EC Decision Date: 09/16/18 Decision Time: 11:59
[2018-09-16] MEDS ORDERED: ONDANSETRON 4 MG/2 ML VIAL IVP STA ×2 (10:19→17:31)
[2018-09-16 10:46] LABS: Basophils % (A) 0 %; Eosinophils # (A) 0.1 k/uL (0-0.7); Eosinophils % (A) 1 %; HCT 46.6 % (39.0-53.0); HGB 14.7 gm/dL (13.0-17.5); Lymphocytes # (A) 1.5 k/uL (1.0-4.8); Lymphocytes % (A) 18 %; MCHC 31.5 g/dL (31.0-37.0); MCV 95.3 fL (80.0-100.0); Mean Platelet Volume 8.7; Monocytes # (A) 0.3 k/uL (0-1.0); Monocytes % (A) 4 %; Neutrophils # (A) 6.2 k/uL (1.3-7.7); Neutrophils % (A) 75 %; Platelet Count 309 k/uL (150-450); RBC 4.89 m/uL (4.30-5.90); RDW 13.3 % (11.5-15.5); WBC 8.2 k/uL (3.8-10.6)
--- NOTE | 2018-09-16 10:49 | XR ---
EXAMINATION TYPE: XR KUB DATE OF EXAM: 09/16/2018 COMPARISON: NONE HISTORY: Pain TECHNIQUE: Single supine KUB image of the abdomen is obtained FINDINGS: Small bowel demonstrates no evidence for dilatation or air fluid levels. Gas and fecal material is seen in non-distended colon. No convincing evidence for pneumoperitoneum. No unusual calcifications. The lung bases are clear. The osseous structures are intact. IMPRESSION: 1. Overall nonobstructive bowel gas pattern.
[2018-09-16 10:53] LABS: Appearance,Urine Clear (Clear); Bilirubin,Urine Negative (Negative); Blood,Urine Large (Negative); Color,Urine Yellow; Glucose,Urine (UA) 4+ (Negative); Ketones,Urine Trace (Negative); Leukocyte Esterase,Urine Negative (Negative); Mucus,Urine Rare /hpf; Nitrite,Urine Negative (Negative); PH, Urine 5.5 (5.0-8.0); Protein,Urine Negative (Negative); RBC,Urine >182 /hpf (0-5); Specific Gravity,Urine 1.018 (1.001-1.035); Squamous Epithelial Cell,Urine <1 /hpf (0-4); Urobilinogen,Urine <2.0 mg/dL (<2.0)
[2018-09-16 11:02] LABS: ALT 23 U/L (21-72); AST 17 U/L (17-59); Albumin 4.1 g/dL (3.5-5.0); Alkaline Phosphatase 95 U/L (38-126); Amylase 104 U/L (30-110); Anion Gap 12 mmol/L; Blood Urea Nitrogen 21 mg/dL (9-20); Calcium 9.4 mg/dL (8.4-10.2); Carbon Dioxide 22 mmol/L (22-30); Chloride 100 mmol/L (98-107); Glucose 488 mg/dL (74-99); Lipase 150 U/L (23-300); Sodium 134 mmol/L (137-145); Total Bilirubin 0.4 mg/dL (0.2-1.3); Total Protein 7.1 g/dL (6.3-8.2)
[2018-09-16] MEDS ORDERED: HYDROmorphone 1 MG/ML 1 ML SYRINGE IVP STA ×3 (11:14→17:31)
[2018-09-16] MEDS ORDERED: INSULIN REGULAR 100 UNIT in SODIUM CHLORIDE 0.9% 100 ML IV SCH (11:15)
[2018-09-16] MEDS ORDERED: HYDROmorphone 1 MG/ML 1 ML SYRINGE IVP PRN (11:25)
[2018-09-16] MEDS: SODIUM CHLORIDE 0.9% 1,000 ML IV SCH ×3 (12:00→21:25)
--- NOTE | 2018-09-16 12:14 | CT ---
EXAMINATION TYPE: CT abdomen pelvis wo con DATE OF EXAM: 09/16/2018 COMPARISON: None HISTORY: Renal Stone CT DLP: 463.3 mGycm Examination of the solid and hollow viscera is limited given the lack of contrast. FINDINGS: LUNG BASES: No evidence for nodule. No evidence for infiltrate. LIVER/GB: The gallbladder is unremarkable. No space-occupying hepatic lesion. PANCREAS: No pancreatic mass identified. No inflammatory process seen. SPLEEN: No evidence for splenomegaly. No intrasplenic lesions seen. ADRENALS: No adrenal nodules identified. No evidence for thickening. KIDNEYS: The right kidney is pelvic in location. Noted are one or 2 tiny 2 mm calculi right kidney wi thout hydronephrosis. Several small left-sided renal calculi also noted measuring up to 3 mm without evidence of hydronephrosis. BOWEL: Appendix has a normal appearance. No evidence of bowel obstruction. No inflammatory process. Lymph nodes: No evidence for adenopathy greater than 1 cm. Abdominal aorta: Atheromatous changes seen. No evidence for aneurysm. Genital organs: No significant abnormality. Other: No significant abnormality. IMPRESSION: 1. Pelvic location of the right kidney. 2. Bilateral nephrolithiasis without hydronephrosis.
[2018-09-16 12:16] LABS: Glucose,Whole Blood 357 mg/dL (75-99)
[2018-09-16 12:26] LABS: VBG PH 7.33 (7.31-7.41)
[2018-09-16 13:11] LABS: Glucose,Whole Blood 213 mg/dL (75-99)
[2018-09-16] MEDS ORDERED: SODIUM CHLORIDE 0.9% 500 ML 500 ML IV ONE (13:20)
[2018-09-16] MEDS: D5-0.45% NACL WITH KCL 20MEQ/L 1,000 ML IV SCH ×2 (14:00→14:10)
[2018-09-16 14:31] LABS: Glucose,Whole Blood 88 mg/dL (75-99)
[2018-09-16 15:40] LABS: Glucose,Whole Blood 217 mg/dL (75-99)
[2018-09-16 16:32] LABS: ALT 25 U/L (21-72); AST 13 U/L (17-59); Albumin 3.5 g/dL (3.5-5.0); Alkaline Phosphatase 77 U/L (38-126); Anion Gap 8 mmol/L; Blood Urea Nitrogen 20 mg/dL (9-20); Calcium 8.9 mg/dL (8.4-10.2); Carbon Dioxide 22 mmol/L (22-30); Chloride 104 mmol/L (98-107); Glucose 318 mg/dL (74-99); Sodium 134 mmol/L (137-145); Total Bilirubin 0.4 mg/dL (0.2-1.3); Total Protein 6.3 g/dL (6.3-8.2)
[2018-09-16] MEDS ORDERED: ALPRAZolam 1 MG TAB PO PRN (16:38)
[2018-09-16] MEDS ORDERED: IBUPROFEN 400 MG TAB PO PRN (16:38)
[2018-09-16] MEDS ORDERED: HYDROcodone/APAP 5-325MG 1 EACH TAB PO PRN (16:39)
[2018-09-16] MEDS ORDERED: TEMAZEPAM 15 MG CAP PO PRN (16:39)
[2018-09-16] MEDS ORDERED: PANTOPRAZOLE 40 MG TABLET PO SCH (16:45)
[2018-09-16] MEDS ORDERED: INSULIN ASPART 100 UNIT/ML 1 ML 10 ML VIAL SQ ONE (17:35)
[2018-09-16 17:58] LABS: Glucose,Whole Blood 370 mg/dL (75-99)
[2018-09-16 19:06] LABS: ALT 22 U/L (21-72); AST 19 U/L (17-59); Albumin 3.7 g/dL (3.5-5.0); Alkaline Phosphatase 75 U/L (38-126); Anion Gap 9 mmol/L; Blood Urea Nitrogen 21 mg/dL (9-20); Calcium 8.9 mg/dL (8.4-10.2); Carbon Dioxide 22 mmol/L (22-30); Chloride 101 mmol/L (98-107); Glucose 383 mg/dL (74-99); Phosphorus 4.5 mg/dL (2.5-4.5); Potassium 4.9 mmol/L (3.5-5.1); Sodium 132 mmol/L (137-145); Total Bilirubin 0.6 mg/dL (0.2-1.3); Total Protein 6.5 g/dL (6.3-8.2)
[2018-09-16 19:52] LABS: Glucose,Whole Blood 288 mg/dL (75-99)
[2018-09-16] MEDS ORDERED: INSULIN DETEMIR 100 UNIT/ML 10 ML VIAL SQ ONE (20:19)
[2018-09-16] MEDS ORDERED: INSULIN ASPART 100 UNIT/ML 1 ML 10 ML VIAL SQ SCH (21:02)
[2018-09-16] MEDS: HEPARIN SODIUM,PORCINE 5,000 UNIT/ML 1 ML VIAL SQ SCH (21:26)
[2018-09-16] MEDS: ZOLPIDEM 10 MG TAB PO SCH (21:26)
[2018-09-16] MEDS: PANTOPRAZOLE 40 MG/10 ML VIAL IVP SCH (21:26)
[2018-09-16 21:30] LABS: Glucose,Whole Blood 482 mg/dL (75-99)
[2018-09-16 21:34] LABS: Glucose,Whole Blood 510 mg/dL (75-99)
[2018-09-16] MEDS: HYDROmorphone 1 MG/ML 1 ML SYRINGE IVP PRN (22:12)
--- NOTE | 2018-09-16 22:20 | HP ---
HISTORY AND PHYSICAL DATE OF SERVICE: 09/16/2018 CHIEF COMPLAINTS: Abdominal pain and high blood sugars. HISTORY OF PRESENT ILLNESS: This 33-year-old gentleman with a past medical history of insulin-dependent diabetes mellitus, type 1, history of pelvic kidney, history of renal calculus, cholecystectomy, not being followed by a primary physician in the outpatient setting, recently moved from [place] to the [facility] along with his family. The patient had multiple episodes of diabetic ketoacidosis and finally, after taking out the gallbladder, the patient felt much better initially, according to the patient. Currently the patient is taking Lantus 30 units in the a.m. with sliding scale, which is adjusted to carb count. The patient was not feeling well over the past few days because of severe nephrolithiasis on the left side with the pain radiating from the groin to the loin on the left side. The patient was vomiting, also. The patient's oral intake was poor. The patient took his sugar and found it to be 600. It was down to 230 this morning. Because of concerns about DKA, the patient came to [facility] and was admitted for further evaluation and treatment. In the ER, the blood sugar was found to be 318. The ketones were positive and the CO2 was 22 and sodium was 130. Patient was admitted for further evaluation and treatment. Insulin drip was done with the blood sugar dropping, also. There is no history of any fever, rigor or chills. No history of headache, loss of consciousness, seizures. PAST MEDICAL HISTORY: 1. Diabetes mellitus, type 1. 2. pelvic kidney. 3. History of renal calculi. 4. Cholecystectomy. 5. History of DJD. MEDICATIONS PRIOR TO ADMISSION: 1. Ambien 10 mg at bedtime. 2. Motrin 400 mg q.6 p.r.n. 3. Xanax 1 mg at bedtime p.r.n. 4. NovoLog before meals t.i.d. 5. Lantus 30 units subcutaneously daily. ALLERGIES: 1. MORPHINE. 2. VIOXX. 3. CODEINE. 4. ULTRAM. FAMILY HISTORY: History of cancer, CAD, CABG, mental illness and suicide. SOCIAL HISTORY: History of alcohol. History of THC. No history of smoking. REVIEW OF SYSTEMS: ENT: No diminished hearing. No diminished vision. CARDIOVASCULAR SYSTEM: No angina, palpitations. RESPIRATORY SYSTEM: No cough, hemoptysis. GI: As mentioned earlier. : As mentioned earlier. NERVOUS SYSTEM: No numbness, weakness. ALLERGY/IMMUNOLOGY: No asthma, hayfever. MUSCULOSKELETAL: As mentioned earlier. HEMATOLOGY/ONCOLOGY: No history of anemia. ENDOCRINE: Diabetes mellitus. CONSTITUTIONAL: As mentioned earlier. DERMATOLOGY: Negative. RHEUMATOLOGY: Negative. PSYCHIATRY: As mentioned earlier. PHYSICAL EXAMINATION: Patient is alert and oriented x3. Pulse is 80, blood pressure 132/79, respiration 16, temperature normal, pulse ox 99% on room air. HEENT: Conjunctivae normal. Oral mucosa moist. NECK: No jugular venous distention. No carotid bruit. No lymph node enlargement. CARDIOVASCULAR SYSTEM: S1, S2 muffled. RESPIRATORY SYSTEM: Breath sounds diminished at the bases. No rhonchi. No crackles. ABDOMEN: Soft, non-tender. No mass palpable. LEGS: No edema. No swelling. NERVOUS SYSTEM: Higher functions as mentioned earlier. Moves all 4 limbs. No focal motor or sensory deficit. LYMPHATICS: No lymph node palpable in neck, axillae or groin. SKIN: No ulcer, rash, bleeding. LABS: CBC within normal limits. VBG is 7.3. Sodium 132, potassium 5, and glucose 318. Glucose AST is 13. Ketones positive. ASSESSMENT: 1. Uncontrolled diabetes mellitus, type 1, possibly early diabetic ketoacidosis. 2. Abdominal pain with left ureterolithiasis with severe pain. 3. Hyponatremia. 4. History of diabetic ketoacidosis previously. 5. History of pelvic kidney. 6. History of renal calculi. 7. History of degenerative joint disease. 8. History of tetrahydrocannabinol. RECOMMENDATIONS AND DISCUSSION: In this 33-year-old gentleman who presented with multiple complex medical issues , at this time I recommend to continue current medication, continue symptomatic treatment. Otherwise, I would recommend initiating Lantus insulin, long-acting as well as scale also, and continue with IV fluids. Symptomatic treatment. Protonix. The patient is limited in view of the previous allergies, but we will continue to monitor. Further recommendations to follow. We will start him on a consistent carb diet. Overall prognosis is guarded because of multiple complex medical issues. Further recommendations to follow. I also recommend that the patient follow up closely with a primary doctor in the outpatient setting and monitor blood sugars closely. MMODL / IJN: [id number] / MTDCharly
[2018-09-16] MEDS: MAG HYDROX/AL HYDROX/SIMETH 30 ML CUP PO SCH (22:40)
[2018-09-16] MEDS: INSULIN REGULAR 100 UNIT in SODIUM CHLORIDE 0.9% 100 ML IV SCH (23:40)
[2018-09-16] MEDS: ONDANSETRON 4 MG/2 ML VIAL IVP PRN (23:50)
[2018-09-17 00:10] LABS: Glucose,Whole Blood 354 mg/dL (75-99)
[2018-09-17 01:01] LABS: Glucose,Whole Blood 243 mg/dL (75-99)
[2018-09-17] MEDS: HYDROmorphone 1 MG/ML 1 ML SYRINGE IVP PRN ×6 (02:17→21:47)
[2018-09-17] MEDS: SODIUM CHLORIDE 0.9% 1,000 ML IV SCH ×5 (02:25→22:38)
[2018-09-17 02:50] LABS: Glucose,Whole Blood 67 mg/dL (75-99)
[2018-09-17 02:50] LABS: Glucose,Whole Blood 70 mg/dL (75-99)
[2018-09-17 04:04] LABS: Glucose,Whole Blood 130 mg/dL (75-99)
[2018-09-17 04:49] LABS: Glucose,Whole Blood 182 mg/dL (75-99)
[2018-09-17 05:57] LABS: Hemoglobin A1C 8.6 % (4.0-6.0)
[2018-09-17] MEDS: INSULIN ASPART 100 UNIT/ML 1 ML 10 ML VIAL SQ SCH ×5 (06:16→20:50)
[2018-09-17 06:52] LABS: Glucose,Whole Blood 86 mg/dL (75-99)
[2018-09-17 07:56] LABS: Glucose,Whole Blood 69 mg/dL (75-99)
[2018-09-17 08:02] LABS: Basophils % (A) 1 %; Eosinophils # (A) 0.2 k/uL (0-0.7); Eosinophils % (A) 3 %; HCT 38.4 % (39.0-53.0); HGB 12.9 gm/dL (13.0-17.5); Lymphocytes # (A) 2.2 k/uL (1.0-4.8); Lymphocytes % (A) 34 %; MCHC 33.7 g/dL (31.0-37.0); MCV 91.9 fL (80.0-100.0); Mean Platelet Volume 7.6; Monocytes # (A) 0.3 k/uL (0-1.0); Monocytes % (A) 5 %; Neutrophils # (A) 3.7 k/uL (1.3-7.7); Neutrophils % (A) 56 %; Platelet Count 240 k/uL (150-450); RBC 4.17 m/uL (4.30-5.90); RDW 13.1 % (11.5-15.5); WBC 6.6 k/uL (3.8-10.6)
[2018-09-17 08:27] LABS: Anion Gap 8 mmol/L; Blood Urea Nitrogen 16 mg/dL (9-20); Calcium 8.7 mg/dL (8.4-10.2); Carbon Dioxide 25 mmol/L (22-30); Chloride 105 mmol/L (98-107); Glucose 90 mg/dL (74-99); Potassium 4.3 mmol/L (3.5-5.1); Sodium 138 mmol/L (137-145)
[2018-09-17 08:53] LABS: Glucose,Whole Blood 292 mg/dL (75-99)
[2018-09-17] MEDS: PANTOPRAZOLE 40 MG/10 ML VIAL IVP SCH (09:03)
[2018-09-17] MEDS: INSULIN DETEMIR 100 UNIT/ML 10 ML VIAL SQ SCH (09:03)
[2018-09-17] MEDS: MAG HYDROX/AL HYDROX/SIMETH 30 ML CUP PO SCH ×4 (09:03→21:47)
[2018-09-17] MEDS: HEPARIN SODIUM,PORCINE 5,000 UNIT/ML 1 ML VIAL SQ SCH ×2 (09:04→20:17)
[2018-09-17 10:05] VITALS: BMI 22.8
[2018-09-17 11:00] LABS: Glucose,Whole Blood 170 mg/dL (75-99)
[2018-09-17] MEDS: ONDANSETRON 4 MG/2 ML VIAL IVP PRN ×2 (11:09→17:46)
[2018-09-17 12:40] LABS: Glucose,Whole Blood 100 mg/dL (75-99)
[2018-09-17] MEDS: ALPRAZolam 1 MG TAB PO PRN ×2 (13:15→20:15)
[2018-09-17 14:52] LABS: Glucose,Whole Blood 220 mg/dL (75-99)
[2018-09-17] MEDS: INSULIN REGULAR 100 UNIT in SODIUM CHLORIDE 0.9% 100 ML IV SCH (15:22)
[2018-09-17] MEDS ORDERED: INSULIN DETEMIR 100 UNIT/ML 10 ML VIAL SQ ONE (16:00)
[2018-09-17] MEDS: PANTOPRAZOLE 40 MG TABLET PO SCH (16:49)
[2018-09-17 17:00] LABS: Glucose,Whole Blood 144 mg/dL (75-99)
[2018-09-17] MEDS ORDERED: MORPHINE SULFATE 4 MG/ML SYRINGE IVP ONE ×2 (17:26→17:44)
--- NOTE | 2018-09-17 17:27 | PN ---
PROGRESS NOTE DATE OF SERVICE: 09/17/2018 This 33-year-old gentleman has abdominal pain also high blood sugars. The patient diabetes mellitus. Abdominal and pelvis CAT scan also showed only pelvic location of right kidney and bilateral nephrolithiasis without. No chest pain. No palpitations. No fever. EXAM: Alert and oriented x3. The pulse is 80, blood pressure 112/53, respiration 18, temperature 98.2, pulse ox 98% on room air. HEENT: Conjunctivae normal. NECK: No jugular venous distention. CARDIOVASCULAR: S1, S2. RESPIRATORY: Breath sounds diminished in the bases. A few rhonchi. No crackles. Abdomen is soft, nontender. No masses palpable. Legs are no edema. No swelling. Central nervous system: No focal deficits. LAB STUDIES: Glucose is 120. WBC was 6.6, hemoglobin 12.9. ASSESSMENT: 1. Uncontrolled diabetes type 1, possibly early diabetic ketoacidosis. 2. Abdominal pain with left ureterolithiasis with severe pain. 3. Hyponatremia. 4. Brittle diabetes mellitus type 1. 5. History of diabetic ketoacidosis previously. 6. History of kidney. 7. History of renal calculi. 8. History of degenerative joint disease. 9. History of THC. RECOMMENDATIONS AND DISCUSSION: Recommend to continue current medications, management. Repeat labs. Guarded prognosis. Further recommendations to follow. See orders for details. Prognosis guarded. The patient had very brittle diabetes mellitus. See orders for details. MMODL / IJN: [id number] / MTDD
[2018-09-17 20:36] LABS: Glucose,Whole Blood 212 mg/dL (75-99)
--- NOTE | 2018-09-17 20:38 | P.GSCN ---
History of Present Illness Consult date: 09/17/18 Reason for Consult: Urolithiasis History of present illness: The patient is a 33-year-old male admitted through the emergency room last night for evaluation of left flank pain associated with nausea and vomiting and a blood glucose over 500. He says that he first began experiencing pain in his left flank and left lower quadrant on 09/15 in the evening. His pain continued and he experienced some blood in his urine. Coupled with the pain was nausea and vomiting. He says that his glucose at home was over 600. When first seen in the emergency room his fasting glucose was over 500. BUN/creatinine were 20/ 0.9. Urinalysis confirmed microscopic hematuria. CT scan of the abdomen and pelvis identified two nonobstructive calculi in the left kidney measuring 2-3 mm in size and at least 1-2 nonobstructive calculi in the right kidney measuring 1-2 mm in size. The right kidney is located in the pelvis. The patient has a history of urolithiasis and says that he last passed a stone 4-5 months ago. His first stone was passed 1 1/2 to 2 years ago. He has no history of urinary tract infection. He says that he has noted increased urinary frequency and urgency over the last month. Review of Systems - Constitutional Reports anorexia, Denies fever - Cardiovascular Denies shortness of breath - Respiratory Denies cough - Gastrointestinal Reports as per HPI, Reports heartburn, Reports loss of appetite, Reports nausea , Reports vomiting - Genitourinary Reports as per HPI, Reports testicular pain (chronic left orchalgia -over 7 years) Past Medical History Past Medical History: Diabetes Mellitus Additional Past Medical History / Comment(s): type 1, congenital pelvic kidney, hx of renal calculi History of Any Multi-Drug Resistant Organisms: None Reported Past Surgical History: Cholecystectomy, Orthopedic Surgery Additional Past Surgical History / Comment(s): left knee x6(titanuim screws), egd w/ bx(done 06-14-17) Past Anesthesia/Blood Transfusion Reactions: No Reported Reaction Smoking Status: Never smoker - Past Family History Sister(s) Family Medical History: Cancer Brother(s) Family Medical History: Cancer Mother Family Medical History: Hyperlipidemia Father Family Medical History: Coronary Artery Disease (CAD) Additional Family Medical History / Comment(s): hx cabg, mental illness- committed suicide Medications and Allergies Home Medications Medication Instructions Recorded Confirmed Type Insulin Aspart [NovoLOG See Protocol SQ AC-TID 03/05/17 09/16/18 History (formulary)] Zolpidem [Ambien] 10 mg PO HS 03/21/17 09/16/18 History Insulin Glargine,Hum.rec.anlog 30 unit SQ DAILY 04/17/17 09/16/18 History [Lantus Solostar] ALPRAZolam [Xanax] 1 mg PO HS PRN 09/16/18 09/16/18 History Ibuprofen [Motrin Ib] 400 mg PO Q6H PRN 09/16/18 09/16/18 History Allergies Allergy/AdvReac Type Severity Reaction Status Date / Time morphine Allergy Rash/Hives Verified 09/16/18 10:18 rofecoxib [From Vioxx] Allergy DIZZINESS Verified 09/16/18 10:18 codeine AdvReac Rash/Hives Verified 09/16/18 10:18 [From Tylenol-Codeine #3] tramadol AdvReac Nausea & Verified 09/16/18 10:18 Vomiting Surgical - Exam Vital Signs Temp Pulse Resp BP Pulse Ox 98.4 F 96 18 135/83 97 09/16/18 09:46 09/16/18 09:46 09/16/18 09:46 09/16/18 09:46 09/16/18 09:46 - General well developed, well nourished, moderate pain - Neck no masses, no lymphadectomy - Respiratory normal respiratory effort - Abdomen Abdomen: soft, tender (LLQ-mild) Hernia: none - Genitourinary normal penis with no external lesions, testicles present (left testicle is sensitive to palpation but is not enlarged or indurated) Results - Labs 09/17/18 06:42 09/17/18 06:42 Abnormal Lab Results - Last 24 Hours (Table) 09/16/18 09/16/18 09/16/18 Range/Units 10:28 21:29 21:31 RBC (4.30-5.90) m/uL Hgb (13.0-17.5) gm/dL Hct (39.0-53.0) % POC Glucose (mg/dL) 482 H 510 H (75-99) mg/dL Hemoglobin A1c 8.6 H (4.0-6.0) % 09/17/18 09/17/18 09/17/18 Range/Units 00:09 00:41 02:47 RBC (4.30-5.90) m/uL Hgb (13.0-17.5) gm/dL Hct (39.0-53.0) % POC Glucose (mg/dL) 354 H 243 H 67 L (75-99) mg/dL Hemoglobin A1c (4.0-6.0) % 09/17/18 09/17/18 09/17/18 Range/Units 02:49 03:50 04:47 RBC (4.30-5.90) m/uL Hgb (13.0-17.5) gm/dL Hct (39.0-53.0) % POC Glucose (mg/dL) 70 L 130 H 182 H (75-99) mg/dL Hemoglobin A1c (4.0-6.0) % 09/17/18 09/17/18 09/17/18 Range/Units 06:42 07:52 08:44 RBC 4.17 L (4.30-5.90) m/uL Hgb 12.9 L (13.0-17.5) gm/dL Hct 38.4 L (39.0-53.0) % POC Glucose (mg/dL) 69 L 292 H (75-99) mg/dL Hemoglobin A1c (4.0-6.0) % 09/17/18 09/17/18 09/17/18 Range/Units 10:39 12:33 14:48 RBC (4.30-5.90) m/uL Hgb (13.0-17.5) gm/dL Hct (39.0-53.0) % POC Glucose (mg/dL) 170 H 100 H 220 H (75-99) mg/dL Hemoglobin A1c (4.0-6.0) % 09/17/18 Range/Units 16:43 RBC (4.30-5.90) m/uL Hgb (13.0-17.5) gm/dL Hct (39.0-53.0) % POC Glucose (mg/dL) 144 H (75-99) mg/dL Hemoglobin A1c (4.0-6.0) % Diabetes panel 09/16/18 09/17/18 Range/Units 10: 06:42 Sodium 138 (137-145) mmol/L Potassium 4.3 (3.5-5.1) mmol/L Chloride 105 (98-107) mmol/L Carbon Dioxide 25 (22-30) mmol/L BUN 16 (9-20) mg/dL Creatinine 0.89 (0.66-1.25) mg/dL Glucose 90 (74-99) mg/dL Hemoglobin A1c 8.6 H (4.0-6.0) % Calcium 8.7 (8.4-10.2) mg/dL Calcium panel 09/17/18 Range/Units 06:42 Calcium 8.7 (8.4-10.2) mg/dL Pituitary panel 09/17/18 Range/Units 06:42 Sodium 138 (137-145) mmol/L Potassium 4.3 (3.5-5.1) mmol/L Chloride 105 (98-107) mmol/L Carbon Dioxide 25 (22-30) mmol/L BUN 16 (9-20) mg/dL Creatinine 0.89 (0.66-1.25) mg/dL Glucose 90 (74-99) mg/dL Calcium 8.7 (8.4-10.2) mg/dL Adrenal panel 09/17/18 Range/Units 06:42 Sodium 138 (137-145) mmol/L Potassium 4.3 (3.5-5.1) mmol/L Chloride 105 (98-107) mmol/L Carbon Dioxide 25 (22-30) mmol/L BUN 16 (9-20) mg/dL Creatinine 0.89 (0.66-1.25) mg/dL Glucose 90 (74-99) mg/dL Calcium 8.7 (8.4-10.2) mg/dL - Imaging Abdominal x-ray: image reviewed CT scan - abdomen: image reviewed CT scan - pelvis: image reviewed Assessment and Plan (1) Left flank pain Narrative/Plan: The patient's history is very suggestive of passage of a left ureteral calculus. There is no significant left hydronephrosis and no definite stones are identified along the course of the left ureter on the CT scan done yesterday. The patient will be treated conservatively with tamsulosin but if his pain persists with no other explanation then cystoscopy with left retrograde pyeloureterogram may need to be considered later in the week. He will be started on tamsulosin and I encouraged him to strain his urine. If his pain resolves he can be discharged. He should see me as an outpatient to set up a metabolic evaluation due to his multiple calculi. Current Visit: Yes Status: Acute Code(s): R10.9 - UNSPECIFIED ABDOMINAL PAIN SNOMED Code(s): 084550411
[2018-09-17] MEDS: TAMSULOSIN 0.4 MG CAP.ER.24H PO SCH (21:43)
[2018-09-17] MEDS: ZOLPIDEM 10 MG TAB PO SCH (22:39)
[2018-09-18] MEDS: HYDROmorphone 1 MG/ML 1 ML SYRINGE IVP PRN ×6 (02:09→23:11)
[2018-09-18 02:13] LABS: Glucose,Whole Blood 395 mg/dL (75-99)
[2018-09-18] MEDS: INSULIN ASPART 100 UNIT/ML 1 ML 10 ML VIAL SQ SCH ×8 (02:16→21:27)
[2018-09-18] MEDS: ALPRAZolam 1 MG TAB PO PRN ×3 (04:42→20:16)
[2018-09-18] MEDS: SODIUM CHLORIDE 0.9% 1,000 ML IV SCH ×5 (04:43→23:12)
[2018-09-18 07:59] LABS: Glucose,Whole Blood 106 mg/dL (75-99)
[2018-09-18 07:59] LABS: Glucose,Whole Blood 68 mg/dL (75-99)
[2018-09-18 07:59] LABS: Glucose,Whole Blood 54 mg/dL (75-99)
[2018-09-18] MEDS: HEPARIN SODIUM,PORCINE 5,000 UNIT/ML 1 ML VIAL SQ SCH ×2 (09:56→21:31)
[2018-09-18 10:01] LABS: Glucose,Whole Blood 337 mg/dL (75-99)
[2018-09-18] MEDS: INSULIN DETEMIR 100 UNIT/ML 10 ML VIAL SQ SCH ×2 (10:07→21:11)
[2018-09-18] MEDS: MAG HYDROX/AL HYDROX/SIMETH 30 ML CUP PO SCH ×4 (10:07→21:27)
[2018-09-18] MEDS: TAMSULOSIN 0.4 MG CAP.ER.24H PO SCH (10:42)
[2018-09-18] MEDS: PANTOPRAZOLE 40 MG TABLET PO SCH ×2 (10:42→17:59)
[2018-09-18 11:11] LABS: Basophils % (A) 0 %; Eosinophils # (A) 0.1 k/uL (0-0.7); Eosinophils % (A) 3 %; HCT 39.1 % (39.0-53.0); HGB 12.4 gm/dL (13.0-17.5); Lymphocytes # (A) 1.4 k/uL (1.0-4.8); Lymphocytes % (A) 31 %; MCH 29.7 pg (25.0-35.0); MCHC 31.8 g/dL (31.0-37.0); MCV 93.4 fL (80.0-100.0); Mean Platelet Volume 7.6; Monocytes # (A) 0.2 k/uL (0-1.0); Monocytes % (A) 5 %; Neutrophils # (A) 2.6 k/uL (1.3-7.7); Neutrophils % (A) 59 %; Platelet Count 214 k/uL (150-450); RBC 4.19 m/uL (4.30-5.90); WBC 4.4 k/uL (3.8-10.6)
[2018-09-18 11:26] LABS: Anion Gap 8 mmol/L; Blood Urea Nitrogen 13 mg/dL (9-20); Calcium 8.5 mg/dL (8.4-10.2); Carbon Dioxide 22 mmol/L (22-30); Chloride 104 mmol/L (98-107); Glucose 341 mg/dL (74-99); Potassium 5.3 mmol/L (3.5-5.1); Sodium 134 mmol/L (137-145)
[2018-09-18] MEDS ORDERED: INSULIN DETEMIR 100 UNIT/ML 10 ML VIAL SQ ONE (12:11)
[2018-09-18 12:31] LABS: Glucose,Whole Blood 132 mg/dL (75-99)
[2018-09-18 17:04] LABS: Glucose,Whole Blood 107 mg/dL (75-99)
--- NOTE | 2018-09-18 17:13 | PN ---
PROGRESS NOTE DATE OF SERVICE: 09/18/2018 This 33-year-old gentleman who was admitted with uncontrolled diabetes mellitus, type 1, also had possible diabetic ketoacidosis. Patient also had nephrolithiasis. Urology is planning cystoscopy if the pain persists. No chest pain. No palpitations. No fever. On exam, alert and oriented x3. Pulse is 72, blood pressure 131/79, respiration 16, temperature 97.4, pulse ox 100% on room air. HEENT: Conjunctivae normal. NECK: No jugular venous distention. CARDIOVASCULAR SYSTEM: S1, S2 muffled. RESPIRATORY SYSTEM: Breath sounds diminished at the bases. No rhonchi. No crackles. ABDOMEN: Soft, non-tender. LEGS: No edema. NERVOUS SYSTEM: No focal deficit. LABS: WBC 4.4, hemoglobin 12.4 sodium 134, potassium 5.3. ASSESSMENT: 1. Uncontrolled diabetes mellitus, type 1, with early diabetic ketoacidosis. 2. Abdominal pain with left ureterolithiasis with severe pain. 3. Hyponatremia. 4. Brittle diabetes mellitus, type 1. 5. History of diabetic ketosis previously. 6. History of renal calculi. 7. History of degenerative joint disease. 8. History of tetrahydrocannabinol. RECOMMENDATIONS AND DISCUSSION: I recommend to continue current medication, continue with the monitoring, symptomatic treatment. Otherwise, closely follow with Urology. Monitor blood sugars closely. Prognosis guarded. Further recommendations to follow. MMODL / KELLIN: [id number] /
[2018-09-18] MEDS ORDERED: ONDANSETRON 4 MG/2 ML VIAL IVP PRN (18:33)
[2018-09-18] MEDS ORDERED: ONDANSETRON 4 MG/2 ML VIAL IVP ONE (18:33)
[2018-09-18] MEDS ORDERED: DEXAMETHASONE SOD PHOSPHATE 10 MG/ML 1 ML VIAL IV ONE (18:33)
--- NOTE | 2018-09-18 21:00 | P.PN ---
Progress Note - Text Progress Note Date: 09/18/18 The patient continues to have left flank and LLQ pain which requires IV Dilaudid for control. His pain is consistent with ureteral colic however the CT scan shows no conclusive calculus with obstruction in the ureter. There is some slight proximal dilation of the ureter and it is possible that he has a small calculus which was not identified on the CT scan. If his pain continues I discussed performing cystoscopy and left retrograde pyeloureterogram under anesthesia tomorrow afternoon. If an obstructive calculus is identified it could be treated with ureteroscopy with lithotripsy. If no abnormalities noted then it would appear that the patient's pain is not related to his urinary system.
[2018-09-18 21:22] LABS: Glucose,Whole Blood 144 mg/dL (75-99)
[2018-09-18] MEDS: ZOLPIDEM 10 MG TAB PO SCH (22:23)
[2018-09-19 02:04] LABS: Glucose,Whole Blood 202 mg/dL (75-99)
[2018-09-19] MEDS: HYDROmorphone 1 MG/ML 1 ML SYRINGE IVP PRN ×6 (02:15→23:46)
[2018-09-19] MEDS: INSULIN ASPART 100 UNIT/ML 1 ML 10 ML VIAL SQ SCH ×8 (02:15→20:42)
[2018-09-19] MEDS: ALPRAZolam 1 MG TAB PO PRN ×2 (04:05→17:35)
[2018-09-19] MEDS ORDERED: ceFAZolin IN SWFI 2 GM/20 ML SYRINGE IVP ONE (05:00)
[2018-09-19] MEDS: ONDANSETRON 4 MG/2 ML VIAL IVP PRN (06:37)
[2018-09-19 07:20] LABS: Glucose,Whole Blood 81 mg/dL (75-99)
[2018-09-19] MEDS: HEPARIN SODIUM,PORCINE 5,000 UNIT/ML 1 ML VIAL SQ SCH ×2 (08:20→20:30)
[2018-09-19] MEDS ORDERED: KETOROLAC 30 MG/ML 1 ML VIAL IVP STA (08:27)
[2018-09-19 08:31] LABS: Glucose,Whole Blood 108 mg/dL (75-99)
[2018-09-19] MEDS: TAMSULOSIN 0.4 MG CAP.ER.24H PO SCH (09:25)
[2018-09-19] MEDS: PANTOPRAZOLE 40 MG TABLET PO SCH ×2 (09:25→16:42)
[2018-09-19] MEDS: MAG HYDROX/AL HYDROX/SIMETH 30 ML CUP PO SCH ×4 (09:25→22:17)
[2018-09-19 09:50] LABS: Basophils % (A) 0 %; Eosinophils # (A) 0.2 k/uL (0-0.7); Eosinophils % (A) 3 %; HCT 38.5 % (39.0-53.0); HGB 13.1 gm/dL (13.0-17.5); Lymphocytes # (A) 1.6 k/uL (1.0-4.8); Lymphocytes % (A) 33 %; MCH 31.2 pg (25.0-35.0); MCHC 33.9 g/dL (31.0-37.0); MCV 91.9 fL (80.0-100.0); Mean Platelet Volume 7.2; Monocytes # (A) 0.2 k/uL (0-1.0); Monocytes % (A) 4 %; Neutrophils # (A) 2.8 k/uL (1.3-7.7); Neutrophils % (A) 58 %; Platelet Count 218 k/uL (150-450); RBC 4.19 m/uL (4.30-5.90); RDW 13.1 % (11.5-15.5); WBC 4.8 k/uL (3.8-10.6)
[2018-09-19] MEDS: INSULIN DETEMIR 100 UNIT/ML 10 ML VIAL SQ SCH ×2 (10:00→20:43)
[2018-09-19 10:13] LABS: Anion Gap 9 mmol/L; Blood Urea Nitrogen 12 mg/dL (9-20); Calcium 8.9 mg/dL (8.4-10.2); Carbon Dioxide 22 mmol/L (22-30); Chloride 106 mmol/L (98-107); Glucose 138 mg/dL (74-99); Potassium 4.5 mmol/L (3.5-5.1); Sodium 137 mmol/L (137-145)
[2018-09-19 11:49] LABS: Glucose,Whole Blood 208 mg/dL (75-99)
[2018-09-19] MEDS ORDERED: IV FLUID CONTINUATION 1,000 ML IV ONE (12:30)
[2018-09-19] MEDS ORDERED: fentaNYL (PF) 50 MCG/ML 2 ML AMP IVP ONE (12:35)
[2018-09-19] MEDS: fentaNYL (PF) 50 MCG/ML 2 ML AMP IV PRN ×5 (13:00→14:47)
[2018-09-19] MEDS ORDERED: IOPAMIDOL-370 50ML BTL IRRIGATION ONE (13:40)
--- NOTE | 2018-09-19 13:47 | P.CN ---
Psychiatric Consult - . Consult:: Anxiety and excessive thoughts? 09/18/18 13:46 Assessment and Plan (1) Anxiety about health Narrative/Plan: HPI: This is a 33-year-old male with past medical history of type 1 diabetes, right sided pelvic kidney and previous kidney stone present today for chief complaint of left sided flank/back pain and hematuria x 12 hours. Pt states that at 11pm he woke up with left sided flank pain that felt identical to when he had a kidney stone in the past, he states he also took his sugar at this time and it was 600, he states it is down to 230 this morning. Pt admits to vomiting due to pain. Patient denies abdominal pain, epigastric pain, fever , chills, night sweats, diarrhea, chest pain, shortness of breath, headache, visual changes, dizziness, confusion or any other associated symptoms at this time. Upon arrival pt appears uncomfortable. VS within acceptable limits. Pt appears nontoxic. Pt states he tolerated toradol previous as well as dilaudid despite morphine and rofecoxib allergies. Psychiatric consultation due to excessive worry and pressured speech discussed with nursing staff for the consult and the concern over further psychiatric interventions would not be warranted. - Related Data Home Medications Medication Instructions Recorded Confirmed Insulin Aspart [NovoLOG See Protocol SQ AC-TID 03/05/17 09/16/18 (formulary)] Zolpidem [Ambien] 10 mg PO HS 03/21/17 09/16/18 Insulin Glargine,Hum.rec.anlog 30 unit SQ DAILY 04/17/17 09/16/18 [Lantus Solostar] ALPRAZolam [Xanax] 1 mg PO HS PRN 09/16/18 09/16/18 Ibuprofen [Motrin Ib] 400 mg PO Q6H PRN 09/16/18 09/16/18 Allergies Allergy/AdvReac Type Severity Reaction Status Date / Time morphine Allergy Rash/Hives Verified 09/16/18 10:18 rofecoxib [From Vioxx] Allergy DIZZINESS Verified 09/16/18 10:18 codeine AdvReac Rash/Hives Verified 09/16/18 10:18 [From Tylenol-Codeine #3] tramadol AdvReac Nausea & Verified 09/16/18 10:18 Vomiting Past Medical History Past Medical History: Diabetes Mellitus Additional Past Medical History / Comment(s): type 1, pelvic kidney, hx of renal calculi (stones) History of Any Multi-Drug Resistant Organisms: None Reported Past Surgical History: Cholecystectomy, Orthopedic Surgery Additional Past Surgical History / Comment(s): left knee x6 Past Anesthesia/Blood Transfusion Reactions: No Reported Reaction Past Psychological History: No Psychological Hx Reported Smoking Status: Never smoker Past Alcohol Use History: Rare Past Drug Use History: Marijuana - Past Family History Sister(s) Family Medical History: Cancer Brother(s) Family Medical History: Cancer Mental Status Examination - The patient presents alert, pleasant, and cooperative. There calmly seated without any agitated behavior. He reports that [his] mood is good. Affect is congruent and euthymic. [He] deny having any suicidal or homicidal ideation intent or plan. [He] denies any auditory or visual hallucinations. There is no evidence of any delusional thought content. [His] thought process is linear and goal-directed. His[] speech is fluent and nonpressured. [His] memory and concentration is grossly intact for the purposes of this session. Psychiatric impression: Substance abuse disorder Psychiatric recommendations: Recommend him continue to [place] for treatment Thank you for the consult Perez Caballero D.O. PhD attending psychiatrist Rosario Silva Current Visit: Yes Status: Acute Code(s): F41.8 - OTHER SPECIFIED ANXIETY DISORDERS SNOMED Code(s): 521504912
[2018-09-19] MEDS ORDERED: LACTATED RINGERS 1,000 ML IV ONE (13:52)
--- NOTE | 2018-09-19 14:05 | P.OP ---
Date of Procedure: 09/19/18 Preoperative Diagnosis: Left ureteral calculus with secondary pain Postoperative Diagnosis: Normal exam Procedure(s) Performed: Cystoscopy with left retrograde ureterogram Anesthesia: GETA Surgeon: Chester Avalos Estimated Blood Loss (ml): 0 Pathology: none sent Condition: stable Disposition: PACU Indications for Procedure: The patient is a 33-year-old male with a history of urolithiasis who developed severe left flank pain, nausea and vomiting earlier this week. Computed tomography scan of the abdomen and pelvis without IV contrast identified two nonobstructive left renal calculi and two nonobstructive calculi in a right pelvic kidney. There was minimal dilation of the proximal left ureter but no definite calcification along the course of the ureter. The patient's pain has persisted and he believes the pain is identical to that that he is experienced previously while passing stones. Cystoscopy with left retrograde is planned for further evaluation. Description of Procedure: The patient was taken the operating suite where adequate general anesthesia via orotracheal the patient was instituted. He was placed in dorsal lithotomy position with his legs suspended from padded Meño stirrups. The genitalia was prepped with Betadine solution and draped in a sterile fashion. Penile and prostatic urethra traversed under direct vision using the 17-Tamazight cystoscope sheath and 30 lens. Anterior urethra was free of inflammatory lesion tumor and stricture. Prostatic urethra showed minimal lateral lobe enlargement consistent with the patient's age. The bladder was examined. Both ureteral orifices were of normal location and configuration. Bladder was examined and was free of tumor foreign body and diverticulum. A left retrograde ureterogram was performed using an 8-Tamazight cone-tipped catheter. There was some slight dilation of the mid and distal ureter but there was no evidence of filling defect and the ureter drained promptly. The findings were suggestive of previous passage of a calculus however there was no evidence of any residual calculus or obstruction. The bladder was drained and the cystoscope was withdrawn. Patient tolerated procedure well and left the operative room awake and in satisfactory condition. Patient will be discharged later today divided he is comfortable. I have suggested that the patient have a metabolic evaluation in the future due to his multiple stones.
[2018-09-19] MEDS: HYDROmorphone 1 MG/ML 1 ML SYRINGE IVP ONE ×2 (14:20→14:25)
--- NOTE | 2018-09-19 14:21 | FL ---
EXAMINATION TYPE: FL urography retrograde DATE OF EXAM: 09/19/2018 COMPARISON: NONE HISTORY: Fluoroscopy TECHNIQUE: Fluoroscopy. FINDINGS: 33 seconds of fluoroscopy provided. IMPRESSION: As Above.
[2018-09-19] MEDS ORDERED: ONDANSETRON 4 MG/2 ML VIAL IVP ONE (14:22)
[2018-09-19 15:00] LABS: Glucose,Whole Blood 224 mg/dL (75-99)
[2018-09-19] MEDS: LACTATED RINGERS 1,000 ML IV SCH ×2 (15:53→17:36)
[2018-09-19] MEDS: SODIUM CHLORIDE 0.9% 1,000 ML IV SCH ×4 (15:55→20:44)
[2018-09-19 16:52] LABS: Glucose,Whole Blood 362 mg/dL (75-99)
--- NOTE | 2018-09-19 18:11 | PN ---
PROGRESS NOTE DATE OF SERVICE: 09/19/2018 This 33-year-old gentleman admitted with significant uncontrolled diabetes type 1 and also has left loin to groin pain. Dr. Avalos performed urography and as well as cystoscopy with left retrograde ureterogram. The postoperative diagnosis normal exam. The patient also had apparent issues with substance abuse according to the staff and was from [facility]. The patient is currently under evaluation with psych also. No chest pain. No palpitations. No fever. EXAM: Alert and oriented x3. The pulse is 85, blood pressure 135/60, respirations 16, temperature is normal. Pulse ox 99% on 6 L. HEENT is conjunctivae normal. Oral mucosa moist. Neck is no JVD. Cardiovascular: S1, S2. Respiratory: Breath sounds diminished in the bases. A few scattered rhonchi and crackles. Abdomen is soft. Minimal discomfort on palpation. No guarding. No rigidity. No mass palpable. Legs are no edema, no swelling. Central nervous system: No focal deficits. LABS: WBC 4.2, hemoglobin 13.9. Accu-Cheks 224, 362. ASSESSMENT: 1. Uncontrolled diabetes type 1 with early diabetic ketosis present on admission. 2. Abdominal pain with left ureterolithiasis, possibly with normal cystoscopy. 3. Hyponatremia. 4. Diabetes mellitus type 1. 5. History of diabetic ketosis. 6. Previous history of renal calculi. 7. History of degenerative joint disease. 8. History of THC. 9. Rule out psychiatric comorbidity. RECOMMENDATIONS AND DISCUSSION: Recommend to continue current medications, monitoring and symptomatic treatment. Otherwise, at this time, I recommend closely follow with the Psychiatry. Guarded prognosis. Further recommendations to follow. MMODL / IJN: [id number] /
[2018-09-19 20:42] LABS: Glucose,Whole Blood 299 mg/dL (75-99)
[2018-09-19] MEDS: ZOLPIDEM 10 MG TAB PO SCH (22:17)
[2018-09-20] MEDS: ALPRAZolam 1 MG TAB PO PRN ×3 (02:32→19:04)
[2018-09-20 02:48] LABS: Glucose,Whole Blood 411 mg/dL (75-99)
[2018-09-20] MEDS: INSULIN ASPART 100 UNIT/ML 1 ML 10 ML VIAL SQ SCH ×8 (02:51→21:43)
[2018-09-20] MEDS: SODIUM CHLORIDE 0.9% 1,000 ML IV SCH ×5 (02:53→21:42)
[2018-09-20] MEDS: HYDROmorphone 1 MG/ML 1 ML SYRINGE IVP PRN ×6 (03:18→21:47)
[2018-09-20 07:31] LABS: Glucose,Whole Blood 253 mg/dL (75-99)
[2018-09-20] MEDS: PANTOPRAZOLE 40 MG TABLET PO SCH ×2 (07:45→16:30)
[2018-09-20] MEDS: TAMSULOSIN 0.4 MG CAP.ER.24H PO SCH (07:45)
[2018-09-20] MEDS: HEPARIN SODIUM,PORCINE 5,000 UNIT/ML 1 ML VIAL SQ SCH ×2 (07:45→21:42)
[2018-09-20] MEDS: MAG HYDROX/AL HYDROX/SIMETH 30 ML CUP PO SCH ×4 (08:43→21:36)
[2018-09-20] MEDS: INSULIN DETEMIR 100 UNIT/ML 10 ML VIAL SQ SCH ×2 (08:44→21:43)
[2018-09-20 11:45] LABS: Basophils % (A) 0 %; Eosinophils # (A) 0.1 k/uL (0-0.7); Eosinophils % (A) 1 %; HCT 40.7 % (39.0-53.0); HGB 13.1 gm/dL (13.0-17.5); Lymphocytes # (A) 2.2 k/uL (1.0-4.8); Lymphocytes % (A) 22 %; MCH 29.5 pg (25.0-35.0); MCHC 32.1 g/dL (31.0-37.0); MCV 91.8 fL (80.0-100.0); Mean Platelet Volume 7.2; Monocytes # (A) 0.6 k/uL (0-1.0); Monocytes % (A) 6 %; Neutrophils % (A) 69 %; Platelet Count 270 k/uL (150-450); RBC 4.43 m/uL (4.30-5.90)
[2018-09-20 11:57] LABS: Glucose,Whole Blood 266 mg/dL (75-99)
[2018-09-20 12:16] LABS: Anion Gap 12 mmol/L; Blood Urea Nitrogen 15 mg/dL (9-20); Calcium 9.5 mg/dL (8.4-10.2); Carbon Dioxide 22 mmol/L (22-30); Chloride 99 mmol/L (98-107); Glucose 317 mg/dL (74-99); Potassium 4.6 mmol/L (3.5-5.1); Sodium 133 mmol/L (137-145)
[2018-09-20] MEDS: HYDROcodone/APAP 5-325MG 1 EACH TAB PO PRN (16:30)
[2018-09-20] MEDS: LACTATED RINGERS 1,000 ML IV SCH (16:30)
[2018-09-20 16:46] LABS: Glucose,Whole Blood 402 mg/dL (75-99)
[2018-09-20 21:19] LABS: Glucose,Whole Blood 210 mg/dL (75-99)
[2018-09-20] MEDS: ZOLPIDEM 10 MG TAB PO SCH (21:42)
--- NOTE | 2018-09-21 | PN ---
PROGRESS NOTE DATE OF SERVICE: 09/20/2018 This 33-year-old gentleman who was admitted with uncontrolled diabetes type 1, also complaining abdominal pain. The cystoscopy did not show any acute abnormality at this time but, however, currently the patient complaining of left testicular pain also. The patient apparently had a previous testicular cyst. No chest pain. No palpitations. No fever. PHYSICAL EXAM: Alert and oriented x3. The pulse is 87, blood pressure 130/69, respirations 16, temperature 96 degrees, pulse ox 97% on room air. HEENT: Conjunctivae normal. Oral mucosa moist. NECK: No jugular venous distention. No lymph node enlargement. CARDIOVASCULAR: S1, S2. RESPIRATORY: Diminished breath sounds at the bases. No rhonchi, no crackles. ABDOMEN: Soft, nontender. No mass palpable. LEGS: No swelling. Examination of the right testis: No erythema, no swelling. Minimal tenderness on palpation of the epididymis is present. NERVOUS SYSTEM: No focal deficits. LABS: At this time shows CBC within normal, sodium 133. Accu-Cheks are noted. ASSESSMENT: 1. Uncontrolled diabetes type 1 with early diabetic ketosis present on admission. 2. Abdominal pain with acute cholelithiasis possibly with normal cystoscopy. 3. Left testicular pain. 4. Hyponatremia. 5. Diabetes mellitus type 1, brittle. 6. History of diabetic ketoacidosis. 8. History of degenerative joint disease. 9. History of THC. 10.Rule out psychiatric comorbidities. RECOMMENDATION: Recommend to continue current management and continue symptomatic treatment. Otherwise, at this time I recommend increase the dose of insulin and we will continue to monitor. Guarded prognosis because of multiple complex medical issues. Further recommendations to follow. MMODL / IJN: [id number] / MTDD
[2018-09-21] MEDS: SODIUM CHLORIDE 0.9% 1,000 ML IV SCH ×4 (00:24→16:06)
[2018-09-21] MEDS: HYDROmorphone 1 MG/ML 1 ML SYRINGE IVP PRN ×5 (02:07→21:32)
[2018-09-21 02:29] LABS: Glucose,Whole Blood 87 mg/dL (75-99)
[2018-09-21] MEDS: INSULIN ASPART 100 UNIT/ML 1 ML 10 ML VIAL SQ SCH ×8 (02:35→20:53)
[2018-09-21] MEDS: ALPRAZolam 1 MG TAB PO PRN ×3 (03:03→19:08)
[2018-09-21 07:33] LABS: Glucose,Whole Blood 201 mg/dL (75-99)
[2018-09-21] MEDS: MAG HYDROX/AL HYDROX/SIMETH 30 ML CUP PO SCH ×4 (07:55→20:52)
[2018-09-21] MEDS: HEPARIN SODIUM,PORCINE 5,000 UNIT/ML 1 ML VIAL SQ SCH ×2 (07:55→20:47)
[2018-09-21] MEDS: PANTOPRAZOLE 40 MG TABLET PO SCH ×2 (07:55→17:35)
[2018-09-21] MEDS: HYDROcodone/APAP 5-325MG 1 EACH TAB PO PRN (07:55)
[2018-09-21] MEDS: TAMSULOSIN 0.4 MG CAP.ER.24H PO SCH (07:55)
[2018-09-21 08:56] LABS: Basophils % (A) 1 %; Eosinophils # (A) 0.4 k/uL (0-0.7); Eosinophils % (A) 6 %; HGB 14.9 gm/dL (13.0-17.5); Lymphocytes # (A) 2.6 k/uL (1.0-4.8); Lymphocytes % (A) 41 %; MCH 29.8 pg (25.0-35.0); MCHC 32.3 g/dL (31.0-37.0); MCV 92.1 fL (80.0-100.0); Mean Platelet Volume 7.5; Monocytes # (A) 0.3 k/uL (0-1.0); Monocytes % (A) 5 %; Neutrophils # (A) 2.9 k/uL (1.3-7.7); Neutrophils % (A) 46 %; Platelet Count 223 k/uL (150-450); RBC 4.99 m/uL (4.30-5.90); RDW 13.2 % (11.5-15.5); WBC 6.3 k/uL (3.8-10.6)
[2018-09-21 09:01] LABS: Anion Gap 14 mmol/L; Blood Urea Nitrogen 18 mg/dL (9-20); Calcium 9.4 mg/dL (8.4-10.2); Carbon Dioxide 25 mmol/L (22-30); Chloride 100 mmol/L (98-107); Glucose 198 mg/dL (74-99); Potassium 4.6 mmol/L (3.5-5.1); Sodium 139 mmol/L (137-145)
[2018-09-21] MEDS: INSULIN DETEMIR 100 UNIT/ML 10 ML VIAL SQ SCH ×2 (09:54→20:53)
[2018-09-21 12:45] LABS: Glucose,Whole Blood 173 mg/dL (75-99)
[2018-09-21 15:45] VITALS: RESP 16
[2018-09-21 17:18] LABS: Glucose,Whole Blood 80 mg/dL (75-99)
[2018-09-21] MEDS: LACTATED RINGERS 1,000 ML IV SCH (17:23)
--- NOTE | 2018-09-21 20:16 | PN ---
PROGRESS NOTE DATE OF SERVICE: 09/21/2018 This 33-year-old gentleman who was admitted with uncontrolled diabetes, early diabetic ketosis, also complaining of severe pain in the renal gland, testicular area also. No chest pain. No palpitations. The patient is slated to go to psych for further evaluation. No chest pain. No palpitations. No fever. The cystoscopy was negative. EXAM: Alert and oriented x3. Pulse 97, blood pressure 120/60, respirations 16, temperature 98.2, pulse ox 98% on room air. HEENT: Conjunctivae normal. NECK: No jugular venous distention. No carotid bruit. CARDIOVASCULAR: S1, S2 muffled. RESPIRATORY: Breath sounds diminished in the bases. No rhonchi. No crackles. Abdomen is soft, minimal discomfort on palpation. Legs: No edema, no swelling. CENTRAL NERVOUS SYSTEM: No focal deficits. LABS: CBC within normal limits. Accu-Cheks 198. ASSESSMENT: 1. Uncontrolled diabetes type 2 with hypoglycemia as well as early diabetic ketoacidosis, present on admission. 2. Abdominal pain with acute nephrolithiasis, with normal cystoscopy. 3. Left testicular pain. 4. Hyponatremia. 5. Diabetes mellitus type 1, brittle. 6. History of diabetic ketoacidosis. 7. History of degenerative joint disease. 8. History of THC. 9. Rule out psychiatric comorbidities. RECOMMENDATIONS AND DISCUSSION: Recommend to continue current medications, management and symptomatic treatment. Otherwise, monitor blood sugars closely. Otherwise we will continue to monitor. Continue with p.o. pain medications. Guarded prognosis because of multiple complex medical issues. Further recommendations to follow. MMODL / IJN: [id number] /
[2018-09-21 20:39] LABS: Glucose,Whole Blood 292 mg/dL (75-99)
[2018-09-21] MEDS: ZOLPIDEM 10 MG TAB PO SCH (20:52)
[2018-09-22 02:23] LABS: Glucose,Whole Blood 86 mg/dL (75-99)
[2018-09-22] MEDS: INSULIN ASPART 100 UNIT/ML 1 ML 10 ML VIAL SQ SCH ×8 (03:01→20:54)
[2018-09-22] MEDS: HYDROmorphone 1 MG/ML 1 ML SYRINGE IVP PRN ×3 (04:17→17:55)
[2018-09-22] MEDS: ALPRAZolam 1 MG TAB PO PRN ×3 (06:25→20:47)
[2018-09-22 07:14] LABS: Glucose,Whole Blood 137 mg/dL (75-99)
[2018-09-22] MEDS: HEPARIN SODIUM,PORCINE 5,000 UNIT/ML 1 ML VIAL SQ SCH ×2 (07:28→20:48)
[2018-09-22] MEDS: LACTATED RINGERS 1,000 ML IV SCH (07:29)
[2018-09-22] MEDS: PANTOPRAZOLE 40 MG TABLET PO SCH ×2 (07:30→17:55)
[2018-09-22] MEDS: HYDROcodone/APAP 5-325MG 1 EACH TAB PO PRN ×3 (07:31→20:47)
[2018-09-22] MEDS: TAMSULOSIN 0.4 MG CAP.ER.24H PO SCH (07:31)
[2018-09-22] MEDS: INSULIN DETEMIR 100 UNIT/ML 10 ML VIAL SQ SCH ×2 (08:31→20:54)
[2018-09-22] MEDS: MAG HYDROX/AL HYDROX/SIMETH 30 ML CUP PO SCH ×4 (08:40→20:48)
[2018-09-22 11:38] LABS: Glucose,Whole Blood 283 mg/dL (75-99)
[2018-09-22 17:03] LABS: Glucose,Whole Blood 481 mg/dL (75-99)
[2018-09-22 20:42] LABS: Glucose,Whole Blood 187 mg/dL (75-99)
[2018-09-22] MEDS: ZOLPIDEM 10 MG TAB PO SCH (20:47)
--- NOTE | 2018-09-22 21:28 | PN ---
PROGRESS NOTE DATE OF SERVICE: 09/22/2018 This 33-year-old gentleman who was admitted with uncontrolled diabetes type 2, also had diabetic ketoacidosis. Patient also complaining of severe pain at this time. Patient also has significant psychiatric issues including bipolar. Psychiatry is also evaluating the patient for inpatient psych admission, which the patient also thinks is necessary. No chest pain. No palpitations. No suicidal ideations currently. EXAM: Alert and oriented times three. Pulse 99, blood pressure 120/72, respirations 16, temperature 97.7, pulse ox 94% on room air. Cardiovascular: S1, S2. Respiration: Clear to auscultation. Abdomen: Soft, nontender. Nervous system: No focal deficits. LABS: At this time glucose 283, WBC 6.3, hemoglobin 14.9. ASSESSMENT: 1. Uncontrolled diabetes type 2 with hyperglycemia as well as diabetic ketosis present on admission. 2. Abdominal pain with acute nephrolithiasis with normal cystoscopy. 3. Left testicular pain. 4. Hyponatremia. 5. Diabetes mellitus type 1, brittle. 6. History of diabetic ketosis. 7. History of degenerative joint disease. 8. History of THC. 9. Possible bipolar, anxiety, depression. RECOMMENDATIONS AND DISCUSSION: Recommend to continue current medications, management and symptomatic treatment. Otherwise closely follow. Continue antibiotics. Psychiatric evaluation. Discussed with the pillowcase cleaner and elementary school social worker. Continue to monitor. Guarded prognosis. Further recommendations to follow. MMODL / IJN: [id number] /
[2018-09-23] MEDS: HYDROmorphone 1 MG/ML 1 ML SYRINGE IVP PRN ×2 (01:41→08:59)
[2018-09-23] MEDS: INSULIN ASPART 100 UNIT/ML 1 ML 10 ML VIAL SQ SCH ×5 (01:44→13:09)
[2018-09-23 01:45] LABS: Glucose,Whole Blood 126 mg/dL (75-99)
[2018-09-23] MEDS: ALPRAZolam 1 MG TAB PO PRN ×2 (05:28→13:18)
[2018-09-23] MEDS: HYDROcodone/APAP 5-325MG 1 EACH TAB PO PRN ×2 (05:28→13:18)
[2018-09-23 06:08] VITALS: BP 115/71; PULSE 90; TEMP 98.2
[2018-09-23 07:00] LABS: Glucose,Whole Blood 73 mg/dL (75-99)
[2018-09-23] MEDS: TAMSULOSIN 0.4 MG CAP.ER.24H PO SCH (08:04)
[2018-09-23] MEDS: PANTOPRAZOLE 40 MG TABLET PO SCH (08:05)
[2018-09-23] MEDS: HEPARIN SODIUM,PORCINE 5,000 UNIT/ML 1 ML VIAL SQ SCH (08:05)
[2018-09-23] MEDS: MAG HYDROX/AL HYDROX/SIMETH 30 ML CUP PO SCH ×2 (08:05→13:18)
[2018-09-23] MEDS: INSULIN DETEMIR 100 UNIT/ML 10 ML VIAL SQ SCH (08:05)
[2018-09-23 12:23] LABS: Glucose,Whole Blood 272 mg/dL (75-99)
--- NOTE | 2018-09-24 08:54 | DS ---
DISCHARGE SUMMARY FINAL DIAGNOSES: 1. Uncontrolled diabetes type 2 with hypoglycemia as well as early diabetic ketosis present on admission. 2. Abdominal pain with acute nephrolithiasis with normal cystoscopy. 3. Left testicular pain. 4. Hyponatremia. 5. Diabetes mellitus type 1, brittle. 6. History of diabetic ketosis. 7. History of degenerative joint disease. 8. History of THC. 9. Possible bipolar, anxiety, depression. DISCHARGE DISPOSITION: The patient is being discharged in stable condition with guarded prognosis. HISTORY OF PRESENT ILLNESS: This 33-year-old gentleman admitted with acute diabetic ketoacidosis, the patient treated symptomatically. The patient improved significantly. The patient also had left-sided pain from nephrolithiasis. However, cystoscopy was normal and Psychiatry saw the patient and cleared the patient for discharge. Please refer to the staff notes and social work notes for further information. On exam, vital signs are stable. Cardiovascular: S1, S2. Abdomen soft. Central nervous system: No focal deficits. DISCHARGE ADVICE AND MEDICATIONS: 1. Diet is cardiac diet. 2. Activity limited until followup. 3. Follow up with Endocrine in 1 week. 4. Follow up with Dr. Milner in 2-3 days. MEDICATIONS: 1. Xanax 1 mg q.h.s. p.r.n. 2. Motrin 400 mg q.6h. 3. Ambien 10 mg q.h.s. 4. NovoLog 9 units a.c. t.i.d. 5. Lantus 20 units subcu b.i.d. 6. Protonix 40 mg. 7. Flomax 0.4 daily. Follow up with psych as recommended. Once again the patient is being discharged in stable condition with guarded prognosis. MMODL / IJN: [id number] /
== END 2018-09-23 15:31 | disposition home or self-care (01) | DRG 693 ==
LOC: EC 09:35 → 3NMEDONC 11:23 → 3SCARD 23:30 → 4MS4W 09-18 00:41
PROVIDERS: ADMIT Hospitalist; ATTEND Hospitalist
PROC: BT1F1ZZ Fluoroscopy of Left Kidney, Ureter and Bladder using Low Osmolar Contrast (ICD-10-PCS; principal; 2018-09-19 13:00)
DX: N20.0 Calculus of kidney (principal); E10.10 Type 1 diabetes mellitus with ketoacidosis without coma; E87.1 Hypo-osmolality and hyponatremia; E10.649 Type 1 diabetes mellitus with hypoglycemia without coma; F41.9 Anxiety disorder, unspecified; N50.812 Left testicular pain; F19.10 Other psychoactive substance abuse, uncomplicated; R31.0 Gross hematuria; Q63.2 Ectopic kidney; M19.90 Unspecified osteoarthritis, unspecified site; Z79.4 Long term (current) use of insulin; Z79.899 Other long term (current) drug therapy; Z87.442 Personal history of urinary calculi; Z90.49 Acquired absence of other specified parts of digestive tract; Z88.5 Allergy status to narcotic agent; Z88.8 Allergy status to other drugs, medicaments and biological substances; Z82.49 Family history of ischemic heart disease and other diseases of the circulatory system; Z80.9 Family history of malignant neoplasm, unspecified; Z81.8 Family history of other mental and behavioral disorders; Z83.49 Family history of other endocrine, nutritional and metabolic diseases
CPT/HCPCS: 36415; 74018; 74176; 74420; 80048; 80053; 81001; 82009; 82150; 82803; 83036; 83690; 83735; 84100; 85025; 93005; 96361; 96365; 96366; 96375; 96376; 99285

== ENCOUNTER 2018-10-06 09:45 | Inpatient (IN) | payer OTHER ==
[2018-10-06 10:01] LABS: Glucose,Whole Blood 476 mg/dL (75-99)
[2018-10-06] MEDS ORDERED: ONDANSETRON 4 MG/2 ML VIAL IVP STA (10:11)
[2018-10-06] MEDS ORDERED: SODIUM CHLORIDE 0.9% 1,000 ML IV STA ×2 (10:11)
[2018-10-06] MEDS ORDERED: HYDROmorphone 1 MG/ML 1 ML SYRINGE IVP STA (10:11)
--- NOTE | 2018-10-06 10:13 | ED ---
General Adult HPI - General Chief complaint: Recheck/Abnormal Lab/Rx Stated complaint: ABNORMAL LABS, HYPERGLYCEMIA Time Seen by Provider: 10/06/18 10:05 Source: patient, EMS, RN notes reviewed Mode of arrival: EMS Limitations: no limitations - History of Present Illness Initial comments: Patient 33-year-old male presenting to the emergency room today by EMS, with multiple complaints. Patient does admit that blood sugars have been elevated over the last 5 days. States that been greater than 500. He doesn't that he's had some nausea and vomiting. Patient doesn't that he's been trying to increase his fluids. He does admit to a history of kidney stones states that he 's had increased left-sided flank pain. States his pain is consistent with kidney stones that is had in the past. He currently rates pain 8/10. Patient also admits to some cough and congestion. Patient denies any other complaints or symptoms currently. Patient denies any recent fever, chills, shortness of breath, chest pain, abdominal pain, numbness or tingling, constipation or diarrhea, headaches or visual changes, or any other complaints. - Related Data Home Medications Medication Instructions Recorded Confirmed Zolpidem [Ambien] 10 mg PO HS 03/21/17 10/06/18 ALPRAZolam [Xanax] 1 mg PO HS PRN 09/16/18 10/06/18 Ibuprofen [Motrin Ib] 400 mg PO Q6H PRN 09/16/18 10/06/18 Tamsulosin [Flomax] 0.4 mg PO DAILY 10/06/18 10/06/18 Previous Rx's Medication Instructions Recorded Insulin Aspart [NovoLOG 9 unit SQ AC-TID #1 vial 09/23/18 (formulary)] Insulin Glargine,Hum.rec.anlog 20 unit SQ BID #0 09/23/18 [Lantus Solostar] Pantoprazole [Protonix] 40 mg PO DAILY #30 tablet. 09/23/18 Allergies Allergy/AdvReac Type Severity Reaction Status Date / Time codeine Allergy Rash/Hives Verified 10/06/18 10:12 [From Tylenol-Codeine #3] morphine Allergy Rash/Hives Verified 10/06/18 10:12 rofecoxib [From Vioxx] AdvReac DIZZINESS Verified 10/06/18 10:12 tramadol AdvReac Nausea & Verified 10/06/18 10:12 Vomiting Review of Systems ROS Statement: Those systems with pertinent positive or pertinent negative responses have been documented in the HPI. ROS Other: All systems not noted in ROS Statement are negative. Past Medical History Past Medical History: Diabetes Mellitus Additional Past Medical History / Comment(s): type 1, congenital pelvic kidney, hx of renal calculi History of Any Multi-Drug Resistant Organisms: None Reported Past Surgical History: Cholecystectomy, Orthopedic Surgery Additional Past Surgical History / Comment(s): left knee x6(titanuim screws), egd w/ bx(done 06-14-17) Past Anesthesia/Blood Transfusion Reactions: No Reported Reaction Past Psychological History: No Psychological Hx Reported Smoking Status: Never smoker Past Alcohol Use History: None Reported Past Drug Use History: Cocaine, Marijuana, Opiates - Past Family History Sister(s) Family Medical History: Cancer Brother(s) Family Medical History: Cancer Mother Family Medical History: Hyperlipidemia Father Family Medical History: Coronary Artery Disease (CAD) Additional Family Medical History / Comment(s): hx cabg, mental illness- committed suicide General Exam - General Exam Comments Initial Comments: General: The patient is awake and alert, in no distress, and does not appear acutely ill. Eye: There is normal conjunctiva bilaterally. No signs of icterus. Ears, nose, mouth and throat: There are moist mucous membranes and no oral lesions. Neck: The neck is supple, there is no tenderness or JVD. Cardiovascular: There is a regular rate and rhythm. No murmur, rub or gallop is appreciated. Respiratory: Lungs are clear to auscultation, respirations are non-labored, breath sounds are equal. No wheezes, stridor, rales, or rhonchi. Gastrointestinal: Soft, non-distended, non-tender abdomen without masses or organomegaly noted. There is no rebound or guarding present. Musculoskeletal: Normal ROM, no tenderness. Neurological: A&O x 3. CN II-XII intact, There are no obvious motor or sensory deficits. Coordination appears grossly intact. Speech is normal. Skin: Skin is warm and dry and no rashes or lesions are noted. Psychiatric: Cooperative, appropriate mood & affect, normal judgment. Limitations: no limitations Course Vital Signs 10/06/18 09:56 Temperature 97.3 F L Pulse Rate 96 Respiratory 18 Rate Blood Pressure 139/89 O2 Sat by Pulse 99 Oximetry Medical Decision Making - Medical Decision Making Patient's labs been reviewed. Does show positive acetone. Patient's blood glucose greater than 400 here in emergency room. Patient does admit that he's had some symptoms of nausea vomiting over the last few days. He does admit to a cough congestion. Chest x-ray was negative. Patient started on DKA protocol here in the emergency room. Patient reexamined statesis some pain in the left flank. Has a history of kidney stones. Patient will be continued to be monitored and admitted to the hospital. - Lab Data Result diagrams: 10/06/18 10:45 10/06/18 10:45 Lab Results 10/06/18 10/06/18 10/06/18 Range/Units 09:54 10:45 10:45 WBC 10.2 (3.8-10.6) k/uL RBC 4.75 (4.30-5.90) m/uL Hgb 14.4 (13.0-17.5) gm/dL Hct 43.4 (39.0-53.0) % MCV 91.2 (80.0-100.0) fL MCH 30.4 (25.0-35.0) pg MCHC 33.3 (31.0-37.0) g/dL RDW 12.4 (11.5-15.5) % Plt Count 244 (150-450) k/uL Neutrophils % 78 % Lymphocytes % 15 % Monocytes % 4 % Eosinophils % 2 % Basophils % 1 % Neutrophils # 8.0 H (1.3-7.7) k/uL Lymphocytes # 1.5 (1.0-4.8) k/uL Monocytes # 0.4 (0-1.0) k/uL Eosinophils # 0.2 (0-0.7) k/uL Basophils # 0.1 (0-0.2) k/uL D-Dimer (<0.60) mg/L FEU Sodium (137-145) mmol/L Potassium (3.5-5.1) mmol/L Chloride (98-107) mmol/L Carbon Dioxide (22-30) mmol/L Anion Gap mmol/L BUN (9-20) mg/dL Creatinine (0.66-1.25) mg/dL Est GFR (CKD-EPI)AfAm (>60 ml/min/1.73 sqM) Est GFR (CKD-EPI)NonAf (>60 ml/min/1.73 sqM) Glucose (74-99) mg/dL POC Glucose (mg/dL) 476 H (75-99) mg/dL POC Glu Scientific Database Curator Alva Jacobson Calcium (8.4-10.2) mg/dL Total Bilirubin (0.2-1.3) mg/dL AST (17-59) U/L ALT (21-72) U/L Alkaline Phosphatase (38-126) U/L Total Protein (6.3-8.2) g/dL Albumin (3.5-5.0) g/dL Amylase 54 (30-110) U/L Lipase 65 (23-300) U/L Urine Color Urine Appearance (Clear) Urine pH (5.0-8.0) Ur Specific [place] (1.001-1.035) Urine Protein (Negative) Urine Glucose (UA) (Negative) Urine Ketones (Negative) Urine Blood (Negative) Urine Nitrite (Negative) Urine Bilirubin (Negative) Urine Urobilinogen (<2.0) mg/dL Ur Leukocyte Esterase (Negative) Acetone, Qual Positive (Negative) 10/06/18 10/06/18 10/06/18 Range/Units 10:45 10:45 10:45 WBC (3.8-10.6) k/uL RBC (4.30-5.90) m/uL Hgb (13.0-17.5) gm/dL Hct (39.0-53.0) % MCV (80.0-100.0) fL MCH (25.0-35.0) pg MCHC (31.0-37.0) g/dL RDW (11.5-15.5) % Plt Count (150-450) k/uL Neutrophils % % Lymphocytes % % Monocytes % % Eosinophils % % Basophils % % Neutrophils # (1.3-7.7) k/uL Lymphocytes # (1.0-4.8) k/uL Monocytes # (0-1.0) k/uL Eosinophils # (0-0.7) k/uL Basophils # (0-0.2) k/uL D-Dimer <0.17 (<0.60) mg/L FEU Sodium 134 L (137-145) mmol/L Potassium 5.7 H (3.5-5.1) mmol/L Chloride 99 (98-107) mmol/L Carbon Dioxide 18 L (22-30) mmol/L Anion Gap 17 mmol/L BUN 21 H (9-20) mg/dL Creatinine 0.98 (0.66-1.25) mg/dL Est GFR (CKD-EPI)AfAm >90 (>60 ml/min/1.73 sqM) Est GFR (CKD-EPI)NonAf >90 (>60 ml/min/1.73 sqM) Glucose 524 H* (74-99) mg/dL POC Glucose (mg/dL) (75-99) mg/dL POC Glu Scientific Database Curator ID Calcium 9.8 (8.4-10.2) mg/dL Total Bilirubin 0.7 (0.2-1.3) mg/dL AST 16 L (17-59) U/L ALT 25 (21-72) U/L Alkaline Phosphatase 98 (38-126) U/L Total Protein 7.5 (6.3-8.2) g/dL Albumin 4.3 (3.5-5.0) g/dL Amylase (30-110) U/L Lipase (23-300) U/L Urine Color Light Yellow Urine Appearance Clear (Clear) Urine pH 5.0 (5.0-8.0) Ur Specific [place] 1.020 (1.001-1.035) Urine Protein Negative (Negative) Urine Glucose (UA) 4+ H (Negative) Urine Ketones 2+ H (Negative) Urine Blood Negative (Negative) Urine Nitrite Negative (Negative) Urine Bilirubin Negative (Negative) Urine Urobilinogen <2.0 (<2.0) mg/dL Ur Leukocyte Esterase Negative (Negative) Acetone, Qual (Negative) 10/06/18 Range/Units 12:00 WBC (3.8-10.6) k/uL RBC (4.30-5.90) m/uL Hgb (13.0-17.5) gm/dL Hct (39.0-53.0) % MCV (80.0-100.0) fL MCH (25.0-35.0) pg MCHC (31.0-37.0) g/dL RDW (11.5-15.5) % Plt Count (150-450) k/uL Neutrophils % % Lymphocytes % % Monocytes % % Eosinophils % % Basophils % % Neutrophils # (1.3-7.7) k/uL Lymphocytes # (1.0-4.8) k/uL Monocytes # (0-1.0) k/uL Eosinophils # (0-0.7) k/uL Basophils # (0-0.2) k/uL D-Dimer (<0.60) mg/L FEU Sodium (137-145) mmol/L Potassium (3.5-5.1) mmol/L Chloride (98-107) mmol/L Carbon Dioxide (22-30) mmol/L Anion Gap mmol/L BUN (9-20) mg/dL Creatinine (0.66-1.25) mg/dL Est GFR (CKD-EPI)AfAm (>60 ml/min/1.73 sqM) Est GFR (CKD-EPI)NonAf (>60 ml/min/1.73 sqM) Glucose (74-99) mg/dL POC Glucose (mg/dL) 452 H (75-99) mg/dL POC Glu Scientific Database Curator Alva Jacobson Calcium (8.4-10.2) mg/dL Total Bilirubin (0.2-1.3) mg/dL AST (17-59) U/L ALT (21-72) U/L Alkaline Phosphatase (38-126) U/L Total Protein (6.3-8.2) g/dL Albumin (3.5-5.0) g/dL Amylase (30-110) U/L Lipase (23-300) U/L Urine Color Urine Appearance (Clear) Urine pH (5.0-8.0) Ur Specific [place] (1.001-1.035) Urine Protein (Negative) Urine Glucose (UA) (Negative) Urine Ketones (Negative) Urine Blood (Negative) Urine Nitrite (Negative) Urine Bilirubin (Negative) Urine Urobilinogen (<2.0) mg/dL Ur Leukocyte Esterase (Negative) Acetone, Qual (Negative) Disposition Clinical Impression: DKA (diabetic ketoacidoses) Disposition: ADMITTED IP TO THIS HOSP Condition: Stable Is patient prescribed a controlled substance at d/c from ED?: No Referrals: None,Stated [Primary Care Provider] - 1-2 days Time of Disposition: 13:02
[2018-10-06 11:10] LABS: Appearance,Urine Clear (Clear); Bilirubin,Urine Negative (Negative); Blood,Urine Negative (Negative); Color,Urine Light Yellow; Glucose,Urine (UA) 4+ (Negative); Leukocyte Esterase,Urine Negative (Negative); Nitrite,Urine Negative (Negative); Protein,Urine Negative (Negative); Urobilinogen,Urine <2.0 mg/dL (<2.0)
[2018-10-06 11:11] LABS: Basophils # (A) 0.1 k/uL (0-0.2); Basophils % (A) 1 %; Eosinophils # (A) 0.2 k/uL (0-0.7); Eosinophils % (A) 2 %; HCT 43.4 % (39.0-53.0); HGB 14.4 gm/dL (13.0-17.5); Lymphocytes # (A) 1.5 k/uL (1.0-4.8); Lymphocytes % (A) 15 %; MCH 30.4 pg (25.0-35.0); MCHC 33.3 g/dL (31.0-37.0); MCV 91.2 fL (80.0-100.0); Mean Platelet Volume 7.8; Monocytes # (A) 0.4 k/uL (0-1.0); Monocytes % (A) 4 %; Neutrophils % (A) 78 %; Platelet Count 244 k/uL (150-450); RBC 4.75 m/uL (4.30-5.90); RDW 12.4 % (11.5-15.5); WBC 10.2 k/uL (3.8-10.6)
[2018-10-06 11:19] LABS: Amylase 54 U/L (30-110); Lipase 65 U/L (23-300)
--- NOTE | 2018-10-06 11:25 | XR ---
EXAMINATION TYPE: XR chest 2V DATE OF EXAM: 10/06/2018 COMPARISON: 06/11/2017 HISTORY: 33-year-old male with cough TECHNIQUE: PA and lateral views FINDINGS: The cardiomediastinal silhouette, aorta, and pulmonary vasculature are within normal limits. Lungs an d pleural spaces are clear. IMPRESSION: No acute cardiopulmonary process.
[2018-10-06 11:42] LABS: Ketones,Urine 2+ (Negative)
[2018-10-06 12:09] LABS: ALT 25 U/L (21-72); AST 16 U/L (17-59); Albumin 4.3 g/dL (3.5-5.0); Alkaline Phosphatase 98 U/L (38-126); Anion Gap 17 mmol/L; Blood Urea Nitrogen 21 mg/dL (9-20); Calcium 9.8 mg/dL (8.4-10.2); Carbon Dioxide 18 mmol/L (22-30); Chloride 99 mmol/L (98-107); Potassium 5.7 mmol/L (3.5-5.1); Sodium 134 mmol/L (137-145); Total Bilirubin 0.7 mg/dL (0.2-1.3); Total Protein 7.5 g/dL (6.3-8.2)
[2018-10-06 12:20] LABS: Glucose,Whole Blood 452 mg/dL (75-99)
[2018-10-06 12:25] LABS: Glucose 524 mg/dL (74-99)
[2018-10-06] MEDS ORDERED: INSULIN REGULAR 100 UNIT in SODIUM CHLORIDE 0.9% 100 ML IV SCH (12:45)
[2018-10-06] MEDS: SODIUM CHLORIDE 0.9% 1,000 ML IV SCH ×3 (13:00→22:42)
[2018-10-06 13:41] LABS: Glucose,Whole Blood 286 mg/dL (75-99)
[2018-10-06] MEDS: D5-0.45% NACL WITH KCL 20MEQ/L 1,000 ML IV SCH ×2 (13:55→15:33)
[2018-10-06] MEDS ORDERED: HYDROmorphone 0.5 MG/0.5 ML SYRINGE IVP STA (14:04)
[2018-10-06 14:52] LABS: Glucose,Whole Blood 255 mg/dL (75-99)
[2018-10-06 16:28] LABS: Glucose,Whole Blood 270 mg/dL (75-99)
[2018-10-06] MEDS: KETOROLAC 30 MG/ML 1 ML VIAL IVP PRN ×2 (16:56→22:40)
[2018-10-06 17:39] LABS: Anion Gap 8 mmol/L; Blood Urea Nitrogen 18 mg/dL (9-20); Carbon Dioxide 25 mmol/L (22-30); Chloride 103 mmol/L (98-107); Cholesterol 167 mg/dL (<200); Glucose 230 mg/dL (74-99); HDL Cholesterol 38 mg/dL (40-60); LDL Cholesterol,Calculated 91 mg/dL (0-99); Potassium 4.5 mmol/L (3.5-5.1); Sodium 136 mmol/L (137-145); Triglycerides 191 mg/dL (<150)
[2018-10-06 17:52] LABS: Glucose,Whole Blood 190 mg/dL (75-99)
[2018-10-06] MEDS ORDERED: KETOROLAC 30 MG/ML 1 ML VIAL IVP SCH (18:00)
[2018-10-06 18:37] LABS: Glucose,Whole Blood 279 mg/dL (75-99)
[2018-10-06 19:37] LABS: Glucose,Whole Blood 195 mg/dL (75-99)
[2018-10-06] MEDS: INSULIN DETEMIR 100 UNIT/ML 10 ML VIAL SQ SCH (19:39)
[2018-10-06] MEDS ORDERED: ONDANSETRON 4 MG/2 ML VIAL IVP PRN (20:14)
[2018-10-06 20:20] LABS: Anion Gap 8 mmol/L; Blood Urea Nitrogen 20 mg/dL (9-20); Carbon Dioxide 26 mmol/L (22-30); Chloride 103 mmol/L (98-107); Glucose 173 mg/dL (74-99); Phosphorus 4.1 mg/dL (2.5-4.5); Potassium 4.5 mmol/L (3.5-5.1); Sodium 137 mmol/L (137-145)
[2018-10-06] MEDS: IBUPROFEN 400 MG TAB PO PRN (20:30)
[2018-10-06] MEDS: traZODone HCL 50 MG TAB PO SCH (20:31)
[2018-10-06 21:28] LABS: Glucose,Whole Blood 68 mg/dL (75-99)
--- NOTE | 2018-10-06 21:40 | HP ---
HISTORY AND PHYSICAL CHIEF COMPLAINT: DKA. HISTORY OF PRESENT ILLNESS: This is another admission for this 33-year-old white male from [place] where he is being treated for substance abuse. His principal problem has been cocaine. He is diabetic and his blood sugar yesterday was around 300 that it went up to almost 600. He became nauseated and they brought him to the emergency room. REVIEW OF SYSTEMS: He has had no fever, chills, change in vision or hearing, confusion, headache, chest pain, shortness of breath, cough, hemoptysis, palpitations, abdominal pain, pancreatitis, hematemesis, melena, hematochezia, urinary complaints, renal failure, hematuria, dysuria, etc. PAST MEDICAL HISTORY, FAMILY HISTORY, SOCIAL HISTORY: All otherwise unremarkable and noncontributory. Surgically, he has had a procedure on his left knee and a cholecystectomy. He does not smoke and does not drink alcohol. He has had a history of kidney stones and he is currently having quite a bit of discomfort. ALLERGIES: CODEINE, MORPHINE. MEDICATIONS: He has normally takes Xanax, Ambien, NovoLog, Levemir. PHYSICAL EXAMINATION: Blood pressure is 138/100 with a pulse of 96, respirations of 38. He is afebrile. GENERAL: He appeared to be slender and in no acute distress. SKIN: Skin color is normal. Skin is warm, dry. LYMPH: Lymph nodes not enlarged. Head, ears, eyes, nose, mouth, and throat were normal. Neck veins not distended. Thyroid is not enlarged. CHEST: Clear. CARDIAC: Exam is normal. ABDOMEN: Soft, nontender. EXTREMITIES: Normal. NEUROLOGIC: Intact. IMPRESSION: 1. Diabetic ketoacidosis. 2. History of polysubstance abuse. 3. History of left flank pain and history of left renal or ureteral calculi. PLAN: 1. Bed rest. 2. IV fluids. 3. Control blood sugar. 4. Correct acid-base balance. 5. Possibly look into the left flank pain. MMODL / IJN: [id number] /
[2018-10-06 22:15] LABS: Glucose,Whole Blood 140 mg/dL (75-99)
[2018-10-07] MEDS: SODIUM CHLORIDE 0.9% 1,000 ML IV SCH ×5 (02:43→21:17)
[2018-10-07 04:09] LABS: Hemoglobin A1C 8.9 % (4.0-6.0)
[2018-10-07 05:49] LABS: Glucose,Whole Blood 254 mg/dL (75-99)
[2018-10-07] MEDS: PANTOPRAZOLE 40 MG TABLET PO SCH (06:18)
[2018-10-07] MEDS: KETOROLAC 30 MG/ML 1 ML VIAL IVP PRN ×3 (06:19→18:41)
[2018-10-07] MEDS: INSULIN ASPART 100 UNIT/ML 1 ML 10 ML VIAL SQ SCH ×7 (07:03→21:16)
[2018-10-07] MEDS: TAMSULOSIN 0.4 MG CAP.ER.24H PO SCH (08:20)
[2018-10-07 10:11] LABS: Glucose,Whole Blood 384 mg/dL (75-99)
[2018-10-07] MEDS: IBUPROFEN 400 MG TAB PO PRN (10:25)
[2018-10-07] MEDS: INSULIN DETEMIR 100 UNIT/ML 10 ML VIAL SQ SCH (10:26)
[2018-10-07 11:06] VITALS: BMI 22.5
[2018-10-07 11:53] LABS: Glucose,Whole Blood 402 mg/dL (75-99)
[2018-10-07] MEDS: IOPAMIDOL-300 CONTRAST 30 ML VIAL (ORAL USE) PO PRN ×2 (12:28→13:24)
[2018-10-07] MEDS ORDERED: DEXAMETHASONE SOD PHOSPHATE 10 MG/ML 1 ML VIAL IV STA (14:50)
[2018-10-07] MEDS: diphenhydrAMINE 50 MG/ML 1 ML VIAL IVP PRN (15:28)
--- NOTE | 2018-10-07 17:25 | PN ---
PROGRESS NOTE CHIEF COMPLAINT: DKA. HISTORY OF PRESENT ILLNESS: This gentleman is complaining of a lot of left flank pain, and this will be investigated. He is demanding narcotic analgesics and anxiolytics. These will be refused, given his drug history. PHYSICAL EXAMINATION: Chest is clear. Cardiac exam is normal. Abdomen is soft, nontender. IMPRESSION: 1. Uncontrolled diabetes and diabetic ketoacidosis, improved. 2. Left flank and kidney pain. PLAN: 1. CT of the kidneys. 2. Continue management of diabetes. Probably back to [place] in the next day or two. MMODL / IJN: [id number] /
[2018-10-07 17:34] LABS: Glucose,Whole Blood 243 mg/dL (75-99)
[2018-10-07] MEDS: DEXAMETHASONE SOD PHOSPHATE 4 MG/ML 1 ML VIAL IV SCH ×2 (17:39→22:50)
[2018-10-07 20:54] LABS: Glucose,Whole Blood 344 mg/dL (75-99)
[2018-10-07] MEDS ORDERED: INSULIN DETEMIR 100 UNIT/ML 10 ML VIAL SQ SCH (21:00)
[2018-10-07] MEDS: traZODone HCL 50 MG TAB PO SCH (21:17)
--- NOTE | 2018-10-07 22:34 | CT ---
EXAMINATION TYPE: CT abdomen pelvis w con DATE OF EXAM: 10/07/2018 COMPARISON: 09/16/2018 HISTORY: 33-year-old male Left flank pain TECHNIQUE: Contiguous axial scanning of the abdomen and pelvis following administration of 100 ml Iso meagan 300 IV contrast. Delayed images through the kidneys and coronal/sagittal reconstructions perform ed. CT DLP: 852 mGycm Automated exposure control for dose reduction was used. FINDINGS: Heart normal size without pericardial effusion. Tiny hiatal hernia. Lung bases are without pleural effusion. There is a 2.0 cm hypodense lesion peripheral right liver lobe that shows some internal nodular enhan cement suggestive of a hemangioma. Liver is mildly enlarged at 19.7 cm. Portal venous system is paten t. No biliary ductal dilatation. Cholecystectomy clips. Adrenal glands, left kidney, and pancreas appear within normal limits. Spleen mildly enlarged at 14.2 cm on axial series. No dilated small bowel, free fluid, or free air. Scattered nonenlarged mesenteric lymph nodes. Appendix is visualized. There is moderate stool with or al contrast progressing to the hepatic flexure. No pericolonic inflammatory change. Redemonstrated pelvic location of the right kidney with renal artery and vein coursing inferiorly to the kidney. There is soft tissue fullness projecting posteriorly, superiorly, and toward the left from the prosta te gland suggestive of the seminal vesicles, unchanged from 09/16/2018 No hydronephrosis. Homogeneous enhancement of both kidneys. Mild fluid of uncertain etiology. No pelvic lymphadenopathy. There are focal protuberance of the subcutaneous tissues along the bilateral anterior lower abdominal quadrants with soft tissue density replacing the normal adipose tissues. Bones: Stable peripherally sclerotic lesion left iliac bone measuring 1.5 cm with central fat density , overall nonaggressive appearance favoring a benign etiology. IMPRESSION: 1. REDEMONSTRATED MIDLINE PELVIC LOCATION OF THE RIGHT KIDNEY. NO NEPHROLITHIASIS OR HYDRONEPHROSIS. SYMMETRIC, HOMOGENEOUS ENHANCEMENT OF THE KIDNEYS. 2. MILD PELVIC FREE FLUID OF UNCERTAIN ETIOLOGY. 3. FOCAL SOFT TISSUE REPLACEMENT AND PROTUBERANCE INVOLVING THE BILATERAL LOWER QUADRANTS SUBCUTANEOU S FAT. QUERY THE USE OF EXTENSIVE SUBCUTANEOUS INJECTIONS. 4. 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
[2018-10-08] MEDS: KETOROLAC 30 MG/ML 1 ML VIAL IVP PRN ×3 (01:23→22:20)
[2018-10-08] MEDS: SODIUM CHLORIDE 0.9% 1,000 ML IV SCH ×5 (01:23→23:56)
[2018-10-08 06:01] LABS: Glucose,Whole Blood 151 mg/dL (75-99)
[2018-10-08] MEDS: DEXAMETHASONE SOD PHOSPHATE 4 MG/ML 1 ML VIAL IV SCH ×3 (06:24→17:49)
[2018-10-08] MEDS: PANTOPRAZOLE 40 MG TABLET PO SCH (06:24)
[2018-10-08] MEDS: INSULIN ASPART 100 UNIT/ML 1 ML 10 ML VIAL SQ SCH ×7 (07:13→22:21)
[2018-10-08 10:36] LABS: Glucose,Whole Blood 260 mg/dL (75-99)
[2018-10-08 11:45] LABS: Glucose,Whole Blood 252 mg/dL (75-99)
[2018-10-08] MEDS: TAMSULOSIN 0.4 MG CAP.ER.24H PO SCH (13:04)
[2018-10-08] MEDS: diphenhydrAMINE 50 MG/ML 1 ML VIAL IVP PRN ×2 (13:34→23:56)
[2018-10-08 16:25] LABS: Glucose,Whole Blood 489 mg/dL (75-99)
--- NOTE | 2018-10-08 16:57 | PN ---
PROGRESS NOTE CHIEF COMPLAINT: Uncontrolled diabetes. HISTORY OF PRESENT ILLNESS: This gentleman has found a lump in his left hemiscrotum or testicle. He is concerned about. He is still having a left flank pain. There is no abnormality on this CT of the abdomen in that area. He has a low-lying right kidney, but nothing else. PHYSICAL EXAM: Chest is clear. Cardiac exam is normal. Abdomen is soft, nontender. There are no masses in the abdomen. His left testicle is swollen, but there are no masses, hernia, hydrocele, etc. that I could detect it. IMPRESSION: 1. Uncontrolled diabetes. 2. Left flank pain, etiology unknown. 3. Discomfort in the left chest. PLAN: 1. Increase insulin to 54 units. 2. Urology consult, but I cannot find anything significant causing his flank pain to his left testicular problem indication. RUBEN / KELLIN: [id number] /
--- NOTE | 2018-10-08 20:34 | P.GSCN ---
History of Present Illness Consult date: 10/08/18 Reason for Consult: Left testicular pain History of present illness: The patient is a 33-year-old male admitted on 10/06 for evaluation of nausea, vomiting and a glucose over 500. His white blood count on admission was 10, 200. His urinalysis was positive for acetone and he was felt to have diabetic ketoacidosis. He also complained of left abdominal and left testicular pain. CT scan of the abdomen and pelvis with IV contrast was obtained and shows no evidence of left hydronephrosis or left renal abnormality. His diabetes is under better control but his glucose levels remained suboptimal. I was asked to see the patient due to his left testicular pain. The patient is well known to me from his last hospitalization which was between 09/16/2018 and 09/23/2018. At that time he was admitted with nausea, vomiting and left flank pain. He had a history of urolithiasis and felt that he was passing a stone. Noncontrast CT scan of the abdomen and pelvis on 09/16 identified two nonobstructive calculi in the left kidney measuring 2-3 mm in size but there was no evidence of hydronephrosis or calculus along the course of the left ureter. The right kidney was located in the pelvis and contained 1 or 2 nonobstructive calculi measuring less than 2 mm in diameter. The patient' s pain persisted and I performed cystoscopy with a left retrograde ureterogram on 09/19 but there was no evidence of obstruction or calculus. During that hospitalization he also complained of left testicular pain which she says was chronic and dated back several years. I recommended to him that if the pain persisted he be evaluated in a pain clinic for the purpose of a spermatic cord nerve block as his examination was normal. He says that the left testicular pain has continued and he is concerned because he thinks he feels something adjacent to the upper pole of the left testicle. He has no history of orchitis or urinary tract infection. He has had no gross hematuria and has not experienced a change in his normal voiding pattern. Review of Systems - Constitutional Denies chills, Denies fever - Gastrointestinal Reports as per HPI - Genitourinary Reports as per HPI Past Medical History Past Medical History: Diabetes Mellitus, GERD/Reflux Additional Past Medical History / Comment(s): type 1, congenital pelvic right kidney, hx of renal calculi History of Any Multi-Drug Resistant Organisms: None Reported Past Surgical History: Cholecystectomy, Orthopedic Surgery Additional Past Surgical History / Comment(s): left knee x6(titanuim screws), egd w/ bx(done 06-14-17), 09-19-18 cystoscopy with left retrograde pyelogram Past Anesthesia/Blood Transfusion Reactions: No Reported Reaction Smoking Status: Never smoker - Past Family History Sister(s) Family Medical History: Cancer Brother(s) Family Medical History: Cancer Mother Family Medical History: Hyperlipidemia Father Family Medical History: Coronary Artery Disease (CAD) Additional Family Medical History / Comment(s): hx cabg, mental illness- committed suicide Medications and Allergies Home Medications Medication Instructions Recorded Confirmed Type Zolpidem [Ambien] 10 mg PO HS 03/21/17 10/06/18 History ALPRAZolam [Xanax] 1 mg PO HS PRN 09/16/18 10/06/18 History Ibuprofen [Motrin Ib] 400 mg PO Q6H PRN 09/16/18 10/06/18 History Insulin Aspart [NovoLOG 9 unit SQ AC-TID #1 vial 09/23/18 10/06/18 Rx (formulary)] Insulin Glargine,Hum.rec.anlog 20 unit SQ BID #0 09/23/18 10/06/18 Rx [Lantus Solostar] Pantoprazole [Protonix] 40 mg PO DAILY #30 tablet. 09/23/18 10/06/18 Rx Tamsulosin [Flomax] 0.4 mg PO DAILY 10/06/18 10/06/18 History Allergies Allergy/AdvReac Type Severity Reaction Status Date / Time codeine Allergy Rash/Hives Verified 10/06/18 10:12 [From Tylenol-Codeine #3] morphine Allergy Rash/Hives Verified 10/06/18 10:12 rofecoxib [From Vioxx] AdvReac DIZZINESS Verified 10/06/18 10:12 tramadol AdvReac Nausea & Verified 10/06/18 10:12 Vomiting Surgical - Exam Vital Signs BP Pulse Ox 139/89 98 10/06/18 09:51 10/06/18 09:51 - General well developed, well nourished, moderate distress - ENT no hearing loss - Respiratory normal respiratory effort - Abdomen Abdomen: soft, no organomegaly Hernia: none - Genitourinary normal penis with no external lesions, testicles present, other (The patient complains of discomfort in the region of the superior portion of the left epididymis but the epididymis and testicle are normal to palpation) Results - Labs 10/06/18 10:45 10/08/18 17:44 Abnormal Lab Results - Last 24 Hours (Table) 10/07/18 10/08/18 10/08/18 Range/Units 20:54 05:56 10:34 Glucose (74-99) mg/dL POC Glucose (mg/dL) 344 H 151 H 260 H (75-99) mg/dL 10/08/18 10/08/18 10/08/18 Range/Units 11:37 16:23 17:44 Glucose 440 H (74-99) mg/dL POC Glucose (mg/dL) 252 H 489 H (75-99) mg/dL Diabetes panel 10/08/18 Range/Units 17:44 Glucose 440 H (74-99) mg/dL Pituitary panel 10/08/18 Range/Units 17:44 Glucose 440 H (74-99) mg/dL Adrenal panel 10/08/18 Range/Units 17:44 Glucose 440 H (74-99) mg/dL - Imaging CT scan - abdomen: image reviewed CT scan - pelvis: image reviewed Assessment and Plan (1) Left testicular pain Narrative/Plan: I reassured the patient that his left testicle and epididymis are normal to palpation. There is no evidence of hernia or infection. He has chronic left testicular pain which actually dates back several years. This is most likely related to nerve hypersensitivity. If his pain persists he should be evaluated by anesthesia for the purpose of a left spermatic cord nerve block. It may be possible to have the patient evaluated and treated for this during this hospitalization. Current Visit: Yes Status: Acute Code(s): N50.812 - LEFT TESTICULAR PAIN SNOMED Code(s): 87712300
[2018-10-08 20:52] LABS: Glucose,Whole Blood 532 mg/dL (75-99)
[2018-10-08] MEDS ORDERED: INSULIN DETEMIR 100 UNIT/ML 10 ML VIAL SQ SCH ×2 (21:00→22:00)
[2018-10-08] MEDS ORDERED: INSULIN ASPART 100 UNIT/ML 1 ML 10 ML VIAL SQ ONE (21:33)
[2018-10-08] MEDS: traZODone HCL 50 MG TAB PO SCH (21:34)
[2018-10-09 05:32] LABS: Glucose,Whole Blood 158 mg/dL (75-99)
[2018-10-09] MEDS: IBUPROFEN 400 MG TAB PO PRN (06:14)
[2018-10-09] MEDS: KETOROLAC 30 MG/ML 1 ML VIAL IVP PRN ×2 (06:14→19:53)
[2018-10-09] MEDS: SODIUM CHLORIDE 0.9% 1,000 ML IV SCH ×3 (06:15→16:48)
[2018-10-09] MEDS: PANTOPRAZOLE 40 MG TABLET PO SCH (06:36)
[2018-10-09] MEDS: INSULIN ASPART 100 UNIT/ML 1 ML 10 ML VIAL SQ SCH ×6 (07:06→21:20)
[2018-10-09] MEDS ORDERED: INSULIN ASPART 100 UNIT/ML 1 ML 10 ML VIAL SQ SCH (07:30)
[2018-10-09] MEDS: TAMSULOSIN 0.4 MG CAP.ER.24H PO SCH (08:51)
[2018-10-09] MEDS: diphenhydrAMINE 50 MG/ML 1 ML VIAL IVP PRN (08:54)
[2018-10-09] MEDS ORDERED: ZOLPIDEM 5 MG TAB PO PRN (10:38)
[2018-10-09] MEDS ORDERED: INSULIN DETEMIR 100 UNIT/ML 10 ML VIAL SQ SCH ×2 (10:45→21:00)
[2018-10-09] MEDS: PREGABALIN 50 MG CAP PO SCH ×3 (11:08→21:23)
[2018-10-09] MEDS: HYDROcodone/APAP 5-325MG 1 EACH TAB PO PRN ×3 (11:09→22:47)
[2018-10-09 11:56] LABS: Glucose,Whole Blood 96 mg/dL (75-99)
[2018-10-09] MEDS: ALPRAZolam 0.25 MG TAB PO PRN ×2 (13:26→19:53)
--- NOTE | 2018-10-09 13:45 | P.PN ---
Subjective Progress Note Date: 10/09/18 (delayed charting seen at 1030) Principal diagnosis: testicular pain Patient is a 33-year-old male past medical history of type 1 diabetes for the last 12 years, chronic testicular pain, and GERD who initially presented to the hospital from [place] with complaints of nausea, vomiting , and glucose over 500. He was initially diagnosed with diabetic ketoacidosis. He isn't taking when bending ER. He was admitted for further monitoring. He has been in the hospital since 10/06 and we were asked to take over care of the patient on 10/09. He has been seen by urology for his joint pain. He underwent a CT abdomen and pelvis which showed some lipodystrophy but no acute process. He'll have a pelvic kidney on the right hand side and possible unilateral. Urology feels that his testicular pain is likely secondary to hypersensitivity has recommended nerve block with anesthesia. His sugars have also been difficult to control during hospitalization. He has required titration of his basal and bolus insulin. At home he takes Levemir 22 units in AM and 10 units at night and fixed dose novolog 9 units with meals plus sliding scale. Patient seen at examined at bedside. He has been frustrated as his blood sugars have been poorly controlled during hospitalization. We discussed his insulin regiment at home as outlined above. He is still having testicular pain, it has never been this severe in the past. He would be interested in nerve block he has tried lyrica for neuropathic pain in the past and it worked well, but he lost his insurance then and stopped the medication. He would like to try it again. He also take xanax at home and ambien for sleep/ He would like these restarted. These were verified in [facility] and will be restarted. We will use norco for pain while the lyrica is able to become effective. Plan is for discharge tomorrow if sugars are better and pain is controlled. He states his last A1C was 6.8 nad sugars are typically 140-160 at home but have been uncontrolled for 2 weeks at [place]. Objective - Vital Signs Vital signs: Vital Signs Temp 98.3 F 10/09/18 12:00 Pulse 79 10/09/18 12:00 Resp 18 10/09/18 12:00 BP 135/81 10/09/18 12:00 Pulse Ox 98 10/09/18 12:00 Intake & Output 10/08/18 10/09/18 10/09/18 18:59 06:59 18:59 Intake Total 240 2400 360 Balance 240 2400 360 Weight 85.3 kg Intake: Intake, IV Titration 2400 Amount Sodium Chloride 0.9% 1, 2400 000 ml @ 75 mls/hr IV . [id number] [facility] Rx#:[id number] Oral 240 360 Other: Voiding Method Toilet Toilet Toilet # Voids 1 0 3 - Exam General: non toxic, mild distress due to pain, appears at stated age Derm: warm, dry Head: atraumatic, normocephalic, symmetric Eyes: EOMI, no lid lag, anicteric sclera Mouth: no lip lesion, mucus membranes moist Cardiovascular: S1S2 reg, no murmur, positive posterior tibial pulse bilateral, Lungs: CTA bilateral, no rhonchi, no rales , no accessory muscle use Abdominal: soft, nontender to palpation, no guarding, no appreciable organomegaly Ext: no gross muscle atrophy, no edema, no contractures Neuro: CN II-XI grossly intact, no focal neuro deficits Psych: Alert, oriented, appropriate affect - Labs CBC & Chem 7: 10/06/18 10:45 10/08/18 17:44 Labs: Abnormal Lab Results - Last 24 Hours (Table) 10/08/18 10/08/18 10/08/18 Range/Units 16:23 17:44 20:49 Glucose 440 H (74-99) mg/dL POC Glucose (mg/dL) 489 H 532 H (75-99) mg/dL 10/09/18 Range/Units 05:31 Glucose (74-99) mg/dL POC Glucose (mg/dL) 158 H (75-99) mg/dL Assessment and Plan Assessment: DM 1 with hyperglycemia and resolved DKA - change levemir to 20 units BID and novolog to 10 units fixed dose plus sliding scale. 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 DVT prophylaxis: low risk, early ambulation Discussed with: patient, nursing, mother Anticipated discharge: [address]: return to [facility] A total of 45 minutes was spent on the care of this complex patient more than 50 % of the time was spent in counseling and care coordination.
[2018-10-09 14:14] LABS: Glucose,Whole Blood 203 mg/dL (75-99)
[2018-10-09] MEDS ORDERED: IV FLUID CONTINUATION 1,000 ML IV ONE ×2 (15:34)
--- NOTE | 2018-10-09 15:35 | P.PAINCN ---
History of Present Illness - Reason for Consult Consult date: 10/09/18 - History of Present Illness This is a 33 years old male, with 5 years history of left-sided testicular pain , started without any initiating event, patient reported that the pain started without any trauma or heavy lifting, and he used to get left-sided testicular pain every few months, and the frequency of the pain increased over the last 2 years, currently he is getting episodes of severe left-sided testicular pain every few weeks , and the pain is very severe and radiated from the left and groin to the testicle, he denies any fever or night sweats, he denies any penis is discharged, patient had computed tomography scan of the abdomen and it showed no hydronephrosis, and no abnormalities in the left kidney, patient has had cystoscopy done before any showed no evidence of obstruction , his currently on [place] 5/325 every 6 hours and Lyrica 50 mg 3 times a day and Toradol 30 mg every 6 hours and he still has severe pain Past Medical History Past Medical History: Diabetes Mellitus, GERD/Reflux Additional Past Medical History / Comment(s): type 1, congenital pelvic right kidney, hx of renal calculi History of Any Multi-Drug Resistant Organisms: None Reported Past Surgical History: Cholecystectomy, Orthopedic Surgery Additional Past Surgical History / Comment(s): left knee x6(titanuim screws), egd w/ bx(done 06-14-17), 09-19-18 cystoscopy with left retrograde pyelogram Past Anesthesia/Blood Transfusion Reactions: No Reported Reaction Smoking Status: Never smoker - Past Family History Sister(s) Family Medical History: Cancer Brother(s) Family Medical History: Cancer Mother Family Medical History: Hyperlipidemia Father Family Medical History: Coronary Artery Disease (CAD) Additional Family Medical History / Comment(s): hx cabg, mental illness- committed suicide Medications and Allergies Home Medications Medication Instructions Recorded Confirmed Type Zolpidem [Ambien] 10 mg PO HS 03/21/17 10/06/18 History ALPRAZolam [Xanax] 1 mg PO HS PRN 09/16/18 10/06/18 History Ibuprofen [Motrin Ib] 400 mg PO Q6H PRN 09/16/18 10/06/18 History Insulin Aspart [NovoLOG 9 unit SQ AC-TID #1 vial 09/23/18 10/06/18 Rx (formulary)] Insulin Glargine,Hum.rec.anlog 20 unit SQ BID #0 09/23/18 10/06/18 Rx [Lantus Solostar] Pantoprazole [Protonix] 40 mg PO DAILY #30 tablet. 09/23/18 10/06/18 Rx Tamsulosin [Flomax] 0.4 mg PO DAILY 10/06/18 10/06/18 History Allergies Allergy/AdvReac Type Severity Reaction Status Date / Time codeine Allergy Rash/Hives Verified 10/06/18 10:12 [From Tylenol-Codeine #3] morphine Allergy Rash/Hives Verified 10/06/18 10:12 rofecoxib [From Vioxx] AdvReac DIZZINESS Verified 10/06/18 10:12 tramadol AdvReac Nausea & Verified 10/06/18 10:12 Vomiting Physical Exam Vitals: Vital Signs Temp Pulse Resp BP Pulse Ox 10/09/18 12:00 98.3 F 79 18 135/81 98 10/09/18 08:00 98 F 89 18 136/80 98 10/09/18 04:00 97.1 F L 62 18 103/55 99 10/09/18 03:24 78 18 10/09/18 00:00 97.4 F L 78 18 120/63 98 10/08/18 20:00 97.7 F 78 18 130/69 98 10/08/18 16:03 97.4 F L 85 16 121/72 96 Intake and Output 10/09/18 10/09/18 10/09/18 06:59 14:59 22:59 Intake Total 2400 720 Balance 2400 720 Intake: Intake, IV Titration 2400 Amount Sodium Chloride 0.9% 1, 2400 000 ml @ 75 mls/hr IV . [id number] [facility] Rx#:[id number] Oral 720 Other: Voiding Method Toilet Toilet # Voids 3 Weight 85.3 kg Physical Examinations : 1-Constitutional : Cooperative , not in acute distress . 2-HEENT : nech ; supple , no Lymphadenopathy , no Thyromegaly , :eyes , no icterus, no photophobia . ENT : , normal oropharynx , no Thrush 3- Respiratory : Chest clear to auscultations Bilaterally , no wheezing . 4- Cardiovascular : regular rate and rhythem , S1 , S2 , no S3 , no S4. 5- Gastrointestinal: abdomen soft no tenderness , no organomegally . 6- Genitourinary : Normal penis no discharge, testicle normal size, no swelling. No erythema, Allodynia in the left pubic area, allodynia at skin of the left testicular area Tenderness/sensitivity to palpation over the left epididymis 7-Integumentary : No cellulitis , no ulcers , normal skin turgor , no cyanotic . 8- neurologic : Cranial nerve II to XII intact , no focal neurological deffecit 9-psychatric : alert , oriented X 3 , appropriate affect , intact judgment and insight . 10-Lymphatic : no Lymphadenopathy. 11- musculoskeltal: No abnormalities normal motor strength and normal sensation Results CBC & Chem 7: 10/06/18 10:45 10/08/18 17:44 Labs: Abnormal Lab Results - Last 24 Hours (Table) 10/08/18 10/08/18 10/08/18 Range/Units 16:23 17:44 20:49 Glucose 440 H (74-99) mg/dL POC Glucose (mg/dL) 489 H 532 H (75-99) mg/dL 10/09/18 10/09/18 Range/Units 05:31 14:12 Glucose (74-99) mg/dL POC Glucose (mg/dL) 158 H 203 H (75-99) mg/dL Assessment and Plan Plan: Assessment and plan= left testicular pain , Recommend continue Lyrica 50 mg 3 times a day and continue [place] 5/325 every 8 hours I will do the left genitofemoral nerve block today, and if patient continue to have pain after her block today and then we will, scheduling him as an outpatient to have left-sided superior hypogastric plexus block Time with Patient: Greater than 30 PQRS Measure Charge Sheet PQRS Narrative: Smoking Status Never smoker Do You Want the Pneumonia Vaccine Up to Date Vaccine AT THIS TIME? Blood Pressure [Right Arm] 135/81 Blood Pressure 148/79 Pain Intensity [None] 9 Pain Intensity 7 Pain Scale Used Numeric (1 - 10) Scale Used Numeric (1 - 10) Home Medications: Ambulatory Orders Zolpidem [Ambien] 10 mg PO HS 03/21/17 ALPRAZolam [Xanax] 1 mg PO HS PRN 09/16/18 Ibuprofen [Motrin Ib] 400 mg PO Q6H PRN 09/16/18 Insulin Aspart [NovoLOG (formulary)] 9 unit SQ AC-TID #1 vial 09/23/18 Insulin Glargine,Hum.rec.anlog [Lantus Solostar] 20 unit SQ BID #0 09/23/18 Pantoprazole [Protonix] 40 mg PO DAILY #30 tablet. 09/23/18 Tamsulosin [Flomax] 0.4 mg PO DAILY 10/06/18
[2018-10-09] MEDS ORDERED: MIDAZOLAM (PF) 2 MG/2 ML VIAL IVP ONE (15:41)
[2018-10-09] MEDS: fentaNYL (PF) 50 MCG/ML 2 ML AMP IVP ONE ×2 (15:41→15:43)
[2018-10-09] MEDS ORDERED: TRIAMCINOLONE ACETONIDE 40 MG/ML 1 ML VIAL INTRADERMA ONE (15:42)
[2018-10-09] MEDS ORDERED: ROPIVACAINE 5 MG/ML 30 ML VIAL MISCELLANE ONE (15:42)
--- NOTE | 2018-10-09 15:53 | P.PCN ---
Date of Procedure: 10/09/18 Procedure(s) Performed: Procedure= left side genitofemoral nerve block Preoperative diagnosis= 1-left testicular pain , left groin pain . Postoperative diagnosis=1-left testicular pain , left groin pain. Complication = none Condition= stable Anesthesia= moderate sedation with intravenous Versed 2 mg , and fentanyl 100 micrograms . Indication for the procedure= patient complaining of left-sided testicular pain pain , examination was positive for allodynia over the left genitofemoral area , patient will be good candidate to have left side genitofemoral nerve block and we'll evaluate his response in the hand benefit because repeated otherwise, in the future we will consider doing left-sided superior hypogastric plexus block Description of the procedure= procedure risk and benefits discussed with the patient, including but not limited, risk of infection and bleeding, and ALLERGIC reaction to the medication and not complete pain relief and patient agreed with the preceding patient taken to the operating room, placed in prone position or standard monitors applied to the patient then after induction of anesthesia left groin area prepped with chlorhexidine 3 times , then using 25- gauge needle inserted and the location of the left genitofemoral nerve, and after negative aspiration, bupivacaine 0.5% ketamine and 50 mg of Kenalog mixed with her and injected after negative aspiration, tolerated the procedure well , was evaluated your response to the procedure today then we will determine the next step.
[2018-10-09 16:55] LABS: Glucose,Whole Blood 133 mg/dL (75-99)
--- NOTE | 2018-10-09 17:43 | PN ---
PROGRESS NOTE DATE OF SERVICE: 10/09/2018 CHIEF COMPLAINT: Left flank pain and uncontrolled diabetes. HISTORY OF PRESENT ILLNESS: This gentleman is seen by Urology and they are recommending a nerve block to control his back and left scrotal pain. The patient is still demanding pain medication. He has been explained on almost a daily basis that we cannot give him any addicting substances which would include Ultram or any other narcotic analgesics because of his history. He continues to complaining bitterly of the pain in the left flank and CT demonstrated no abnormality there. He became quite aggressive and loud and confrontational. He ask to have another doctor assigned and this has been done. This patient should be seen by Psychiatry. He is considered hostile, aggressive and possibly dangerous. MMODL / IJN: [id number] /
[2018-10-09 20:12] LABS: Glucose,Whole Blood 130 mg/dL (75-99)
[2018-10-09] MEDS: traZODone HCL 50 MG TAB PO SCH (21:23)
[2018-10-10] MEDS: KETOROLAC 30 MG/ML 1 ML VIAL IVP PRN ×2 (02:44→09:24)
[2018-10-10] MEDS: SODIUM CHLORIDE 0.9% 1,000 ML IV SCH (04:49)
[2018-10-10] MEDS: HYDROcodone/APAP 5-325MG 1 EACH TAB PO PRN ×2 (06:16→12:04)
[2018-10-10] MEDS ORDERED: INSULIN DETEMIR 100 UNIT/ML 10 ML VIAL SQ SCH (07:30)
[2018-10-10 07:34] LABS: Glucose,Whole Blood 203 mg/dL (75-99)
[2018-10-10] MEDS: ALPRAZolam 0.25 MG TAB PO PRN (07:59)
[2018-10-10] MEDS: PREGABALIN 50 MG CAP PO SCH (07:59)
[2018-10-10] MEDS: INSULIN ASPART 100 UNIT/ML 1 ML 10 ML VIAL SQ SCH ×4 (07:59→13:04)
[2018-10-10] MEDS: PANTOPRAZOLE 40 MG TABLET PO SCH (07:59)
[2018-10-10] MEDS: TAMSULOSIN 0.4 MG CAP.ER.24H PO SCH (08:01)
[2018-10-10 08:05] VITALS: BP 130/82; PULSE 76; RESP 16; TEMP 97.9
[2018-10-10 11:30] LABS: Glucose,Whole Blood 139 mg/dL (75-99)
--- NOTE | 2018-10-10 11:37 | P.DS ---
Providers Date of admission: 10/06/18 11:24 Expected date of discharge: 10/10/18 Attending physician: Maryjane Gee DO Consults: 10/08/18 13:08 Consult Physician Routine Consulting Provider: Mumtaz Ambriz Consult Reason/Comments: L flank pain, mass in L donavan-scrotum?, Hx drug abuse. Do you want consulting provider notified?: Yes 10/09/18 10:33 Consult Physician Routine Consulting Provider: Mau Ahuja Consult Reason/Comments: nerve block for testicular pain Do you want consulting provider notified?: Yes Primary care physician: Stated None Hospital Course: The patient is a 33 yo M w/ a PMH of substance abuse who was sent to the ED for hyperglycemia with nausea from [place] where he was undergoing rehab for cocaine abuse. The patient's glucose in the ED was 524 with positive ketones and he was diagnosed with DKA. He was admitted for further management. The patient's DKA subsequently resolvedy, however the patient endorsed severe L flank and testicular pain. The patient noted that the pain had been occuring intermittently for the past 5 years though had worsened over the last 2 years with increasing frequency and severity. CT scan of abdomen/pelvis w/ contrast showed a pelvic R kidney and a unilateral seminal vesicle but no findings to explain the patient's testicular pain. Urology was consulted and noted to obvious source for the pain and likely secondary to nerve hypersensitivity and recommended pain-management consult for a possible spermatic cord nerve block. Pain management was subsequently consulted and performed a L genitofemoral nerve block and noted that if patient continues to have pain, he could undergo a L superior hypogastric plexus block as an outpatient to further control the pain. The patient was seen the following day and noted that he continues to have 5/10 pain though it has improved significantly since the procedure. He otherwise denied any active complaints. The patient is presently stable and ready for discharge to [place]. Physical Examination General: Awake, alert, in no acute distress HEENT: NC/AT, anicteric sclerae, moist conjunctiva, no lid-lag, PERRLA, oropharynx clear, no erythema, exudates Cardiovascular: S1/S2 wnl, no murmurs, rubs, or gallops Lungs: Clear to auscultation, normal respiratory effort, no accessory muscle use Abdominal: Soft, nontender, non-distended, no guarding, rebound, or rigidity, normoactive bowel sounds Skin: Warm, dry Extremities: No edema or contractures Psychiatric: Alert and oriented to person, place and time, appropriate affect, Intact judgment Neuro: CN II-XI grossly intact, sensation to light touch grossly present throughout, strength 5/5 throughout Discharge diagnosis: Type 1 DM, DKA resolved; 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 Patient Condition at Discharge: Stable Plan - Discharge Summary Discharge Rx Participant: Yes New Discharge Prescriptions: New HYDROcodone/APAP 5-325MG [[place] 5-325] 1 each PO Q4HR PRN #12 tab PRN Reason: Moderate Pain Continue Zolpidem [Ambien] 10 mg PO HS ALPRAZolam [Xanax] 1 mg PO HS PRN PRN Reason: Anxiety Ibuprofen [Motrin Ib] 400 mg PO Q6H PRN PRN Reason: Pain Insulin Aspart [NovoLOG (formulary)] 9 unit SQ AC-TID #1 vial Pantoprazole [Protonix] 40 mg PO DAILY #30 tablet. Insulin Glargine,Hum.rec.anlog [Lantus Solostar] 20 unit SQ BID #0 Tamsulosin [Flomax] 0.4 mg PO DAILY Discharge Medication List Zolpidem [Ambien] 10 mg PO HS 03/21/17 [History] ALPRAZolam [Xanax] 1 mg PO HS PRN 09/16/18 [History] Ibuprofen [Motrin Ib] 400 mg PO Q6H PRN 09/16/18 [History] Insulin Aspart [NovoLOG (formulary)] 9 unit SQ AC-TID #1 vial 09/23/18 [Rx] Insulin Glargine,Hum.rec.anlog [Lantus Solostar] 20 unit SQ BID #0 09/23/18 [Rx] Pantoprazole [Protonix] 40 mg PO DAILY #30 tablet. 09/23/18 [Rx] Tamsulosin [Flomax] 0.4 mg PO DAILY 10/06/18 [History] HYDROcodone/APAP 5-325MG [[place] 5-325] 1 each PO Q4HR PRN #12 tab 10/10/18 [Rx] Follow up Appointment(s)/Referral(s): None,Stated [Primary Care Provider] - 1-2 days (Please call the number on your insurance card to find a primary physician in your area.) Mau Ahuja MD [STAFF PHYSICIAN] - 1 Week Chester Avalos MD [STAFF PHYSICIAN] - 1 Week Patient Instructions/Handouts: Diabetic Ketoacidosis (DC) Discharge Disposition: OTHER INSTITUTION NOT DEFINED
== END 2018-10-10 14:09 | disposition designated cancer center or children's hospital (05) | DRG 639 ==
LOC: EC 09:45 → 3SCARD 11:24 → 4SSUR 10-09 15:21
PROVIDERS: ADMIT Internal Medicine; ATTEND Internal Medicine
PROC: 3E0T3BZ Introduction of Anesthetic Agent into Peripheral Nerves and Plexi, Percutaneous Approach (ICD-10-PCS; principal; 2018-10-09 13:52)
DX: E10.10 Type 1 diabetes mellitus with ketoacidosis without coma (principal); E88.1 Lipodystrophy, not elsewhere classified; N20.0 Calculus of kidney; F41.9 Anxiety disorder, unspecified; G89.29 Other chronic pain; K21.9 Gastro-esophageal reflux disease without esophagitis; N50.812 Left testicular pain; G47.00 Insomnia, unspecified; F14.10 Cocaine abuse, uncomplicated; R20.8 Other disturbances of skin sensation; Q63.2 Ectopic kidney; Z79.4 Long term (current) use of insulin; Z79.899 Other long term (current) drug therapy; Z90.49 Acquired absence of other specified parts of digestive tract; Z87.442 Personal history of urinary calculi; Z88.5 Allergy status to narcotic agent; Z82.49 Family history of ischemic heart disease and other diseases of the circulatory system; Z83.49 Family history of other endocrine, nutritional and metabolic diseases; Z81.8 Family history of other mental and behavioral disorders
CPT/HCPCS: 36415; 64447; 71046; 74177; 80051; 80053; 80061; 81003; 82009; 82150; 82565; 82947; 83036; 83690; 84100; 84520; 85025; 85379; 93005; 96361; 96365; 96375; 96376; 99285

== ENCOUNTER 2021-02-13 06:58 | Inpatient (IN) | payer OTHER ==
[2021-02-13 07:10] LABS: Glucose,Whole Blood >600 mg/dL (75-99)
[2021-02-13] MEDS ORDERED: SODIUM CHLORIDE 0.9% 1,000 ML IV STA (07:41)
[2021-02-13] MEDS ORDERED: SODIUM CHLORIDE 0.9% 2,000 ML IV STA (07:41)
[2021-02-13] MEDS ORDERED: PROMETHAZINE 25 MG TAB PO STA ×2 (07:47→20:34)
--- NOTE | 2021-02-13 07:53 | ED ---
Nausea/Vomiting/Diarrhea HPI - General Chief complaint: Nausea/Vomiting/Diarrhea Stated complaint: Vomiting Time Seen by Provider: 02/13/21 07:30 Source: patient, RN notes reviewed Mode of arrival: ambulatory Limitations: no limitations - History of Present Illness Initial comments: This is a 35-year-old male with a history of type 1 diabetes who states he developed nausea vomiting with some diarrhea last night. He's been persistent with respect to nausea vomiting or decrease oral intake. He feels like he is going into DKA which is done before. MD complaint: nausea, vomiting, diarrhea, abdominal pain - Related Data Home Medications Medication Instructions Recorded Confirmed Insulin Glargine,Hum.rec.anlog 30 unit SQ BID 02/13/21 02/13/21 [Lantus Solostar] Insulin Regular, Human [NovoLIN R] See Protocol SQ ACHS 02/13/21 02/13/21 Metoclopramide [Reglan] 10 mg PO BID 02/13/21 02/13/21 Pantoprazole Sodium 40 mg PO BID 02/13/21 02/13/21 Promethazine HCl 25 mg PO BID PRN 02/13/21 02/13/21 Allergies Allergy/AdvReac Type Severity Reaction Status Date / Time codeine Allergy Rash/Hives Verified 02/13/21 10:41 [From Tylenol-Codeine #3] morphine Allergy Rash/Hives Verified 02/13/21 10:41 rofecoxib [From Vioxx] AdvReac DIZZINESS Verified 02/13/21 10:41 tramadol AdvReac Nausea & Verified 02/13/21 10:41 Vomiting Review of Systems ROS Statement: Those systems with pertinent positive or pertinent negative responses have been documented in the HPI. ROS Other: All systems not noted in ROS Statement are negative. Past Medical History Past Medical History: Diabetes Mellitus, GERD/Reflux Additional Past Medical History / Comment(s): type 1, congenital pelvic right kidney, hx of renal calculi History of Any Multi-Drug Resistant Organisms: None Reported Past Surgical History: Cholecystectomy, Orthopedic Surgery Additional Past Surgical History / Comment(s): left knee x6(titanuim screws), egd w/ bx(done 06-14-17), 09-19-18 cystoscopy with left retrograde pyelogram Past Anesthesia/Blood Transfusion Reactions: No Reported Reaction Past Psychological History: No Psychological Hx Reported Smoking Status: Current some day smoker Past Alcohol Use History: None Reported Past Drug Use History: Cocaine, Marijuana, Opiates - Past Family History Sister(s) Family Medical History: Cancer Brother(s) Family Medical History: Cancer Mother Family Medical History: Hyperlipidemia Father Family Medical History: Coronary Artery Disease (CAD) Additional Family Medical History / Comment(s): hx cabg, mental illness-commi tted suicide General Exam - General Exam Comments Initial Comments: This a well-developed asthenic appearing male who is awake alert oriented 3 Limitations: no limitations General appearance: alert, anxious, in distress Head exam: Present: atraumatic, normocephalic, normal inspection Eye exam: Present: normal appearance, PERRL, EOMI. Absent: scleral icterus, conjunctival injection, periorbital swelling ENT exam: Present: normal exam, mucous membranes moist Neck exam: Present: normal inspection. Absent: tenderness, meningismus, lymphadenopathy Respiratory exam: Present: normal lung sounds bilaterally, other (Kidney). Absent: respiratory distress, wheezes, rales, rhonchi, stridor Cardiovascular Exam: Present: normal rhythm, tachycardia, normal heart sounds. Absent: systolic murmur, diastolic murmur, rubs, gallop, clicks GI/Abdominal exam: Present: soft, normal bowel sounds. Absent: distended, tenderness, guarding, rebound, rigid Extremities exam: Present: normal inspection, full ROM, normal capillary refill. Absent: tenderness, pedal edema, joint swelling, calf tenderness Back exam: Present: normal inspection Neurological exam: Present: alert, oriented X3, CN II-XII intact Psychiatric exam: Present: normal affect, normal mood Skin exam: Present: warm, dry, intact, normal color. Absent: rash Course Vital Signs 02/13/21 02/13/21 02/13/21 07:04 08:06 09:00 Temperature 98.6 F Pulse Rate 120 H Respiratory 22 18 18 Rate Blood Pressure 148/94 O2 Sat by Pulse 99 Oximetry 02/13/21 10:00 Temperature Pulse Rate 109 H Respiratory 18 Rate Blood Pressure 158/96 O2 Sat by Pulse 100 Oximetry - Reevaluation(s) Reevaluation #1: 02/13/21 12:24 The patient was a difficult IV start he did finally get an IV and was dehydratio n. He did get some relief. Reevaluation #2: 02/13/21 12:26 Patient did have evidence of reflux he was given GI cocktail with relief of his discomfort is was after he was not nauseated Medical Decision Making - Medical Decision Making Patient did demonstrate evidence of DKA. He was dehydrated and elevated lactic acid. Elevated blood sugar. Discussed the case with Dr. Leger patient was admitted place an IV fluids and IV insulin drip. - Lab Data Result diagrams: 02/13/21 09:22 02/13/21 09:22 Lab Results 02/13/21 02/13/21 02/13/21 Range/Units 07:09 09:22 09:22 WBC 24.8 H (3.8-10.6) k/uL RBC 5.37 (4.30-5.90) m/uL Hgb 15.4 (13.0-17.5) gm/dL Hct 50.0 (39.0-53.0) % MCV 93.1 (80.0-100.0) fL MCH 28.7 (25.0-35.0) pg MCHC 30.8 L (31.0-37.0) g/dL RDW 13.6 (11.5-15.5) % Plt Count 431 (150-450) k/uL MPV 9.1 Neutrophils % 87 % Lymphocytes % 7 % Monocytes % 6 % Eosinophils % 0 % Basophils % 0 % Neutrophils # 21.5 H (1.3-7.7) k/uL Lymphocytes # 1.6 (1.0-4.8) k/uL Monocytes # 1.4 H (0-1.0) k/uL Eosinophils # 0.0 (0-0.7) k/uL Basophils # 0.0 (0-0.2) k/uL Hypochromasia Moderate Sodium 127 L (137-145) mmol/L Potassium 5.6 H (3.5-5.1) mmol/L Chloride 84 L (98-107) mmol/L Carbon Dioxide 8 L* (22-30) mmol/L Anion Gap 35 mmol/L BUN 28 H (9-20) mg/dL Creatinine 1.47 H (0.66-1.25) mg/dL Est GFR (CKD-EPI)AfAm 71 (>60 ml/min/1.73 sqM) Est GFR (CKD-EPI)NonAf 61 (>60 ml/min/1.73 sqM) Glucose 892 H* (74-99) mg/dL POC Glucose (mg/dL) >600 H (75-99) mg/dL POC Glu Cake Former ID Bert Corley Lactic Ac Sepsis Rflx Plasma Lactic Acid Micheal (0.7-2.0) mmol/L Calcium 10.5 H (8.4-10.2) mg/dL Magnesium 1.6 (1.6-2.3) mg/dL Total Bilirubin 1.4 H (0.2-1.3) mg/dL AST 24 (17-59) U/L ALT 16 (4-49) U/L Alkaline Phosphatase 151 H (38-126) U/L Creatine Kinase 138 (55-170) U/L Troponin I (0.000-0.034) ng/mL Total Protein 8.2 (6.3-8.2) g/dL Albumin 5.3 H (3.5-5.0) g/dL Amylase 81 (30-110) U/L Lipase 34 (23-300) U/L Acetone, Qual Positive (Negative) 02/13/21 02/13/21 02/13/21 Range/Units 09:22 09:22 09:43 WBC (3.8-10.6) k/uL RBC (4.30-5.90) m/uL Hgb (13.0-17.5) gm/dL Hct (39.0-53.0) % MCV (80.0-100.0) fL MCH (25.0-35.0) pg MCHC (31.0-37.0) g/dL RDW (11.5-15.5) % Plt Count (150-450) k/uL MPV Neutrophils % % Lymphocytes % % Monocytes % % Eosinophils % % Basophils % % Neutrophils # (1.3-7.7) k/uL Lymphocytes # (1.0-4.8) k/uL Monocytes # (0-1.0) k/uL Eosinophils # (0-0.7) k/uL Basophils # (0-0.2) k/uL Hypochromasia Sodium (137-145) mmol/L Potassium (3.5-5.1) mmol/L Chloride (98-107) mmol/L Carbon Dioxide (22-30) mmol/L Anion Gap mmol/L BUN (9-20) mg/dL Creatinine (0.66-1.25) mg/dL Est GFR (CKD-EPI)AfAm (>60 ml/min/1.73 sqM) Est GFR (CKD-EPI)NonAf (>60 ml/min/1.73 sqM) Glucose (74-99) mg/dL POC Glucose (mg/dL) (75-99) mg/dL POC Glu Cake Former ID Lactic Ac Sepsis Rflx Y Plasma Lactic Acid Micheal 4.6 H* (0.7-2.0) mmol/L Calcium (8.4-10.2) mg/dL Magnesium (1.6-2.3) mg/dL Total Bilirubin (0.2-1.3) mg/dL AST (17-59) U/L ALT (4-49) U/L Alkaline Phosphatase (38-126) U/L Creatine Kinase (55-170) U/L Troponin I <0.012 (0.000-0.034) ng/mL Total Protein (6.3-8.2) g/dL Albumin (3.5-5.0) g/dL Amylase (30-110) U/L Lipase (23-300) U/L Acetone, Qual (Negative) - Radiology Data Radiology results: report reviewed (Imaging reviewed no acute findings.), image reviewed Critical Care Time Critical Care Time: Yes Total Critical Care Time: 37 Critical Care Time: Critical care time including initial presentation with history physical labs x- rays multiple reevaluation the patient response to therapy discuss with the admitting physician admission orders review of old charting documentation of the above Disposition Clinical Impression: Diabetic ketoacidosis, Dehydration, Lactic acidosis, Failure to thrive, Gastritis Disposition: ADMITTED IP TO THIS [facility] Condition: Fair Referrals: None,Stated [Primary Care Provider] - 1-2 days
[2021-02-13] MEDS ORDERED: PROCHLORPERAZINE INJ 10 MG/2 ML VIAL IM STA (08:02)
[2021-02-13 09:32] LABS: Basophils % (A) 0 %; Eosinophils % (A) 0 %; HGB 15.4 gm/dL (13.0-17.5); Hypochromasia Moderate; Lymphocytes # (A) 1.6 k/uL (1.0-4.8); Lymphocytes % (A) 7 %; MCH 28.7 pg (25.0-35.0); MCHC 30.8 g/dL (31.0-37.0); MCV 93.1 fL (80.0-100.0); Mean Platelet Volume 9.1; Monocytes # (A) 1.4 k/uL (0-1.0); Monocytes % (A) 6 %; Neutrophils # (A) 21.5 k/uL (1.3-7.7); Neutrophils % (A) 87 %; Platelet Count 431 k/uL (150-450); RBC 5.37 m/uL (4.30-5.90); RDW 13.6 % (11.5-15.5); WBC 24.8 k/uL (3.8-10.6)
[2021-02-13 09:45] LABS: ALT 16 U/L (4-49); AST 24 U/L (17-59); African American GFR (CKD) 71 (>60 ml/min/1.73 sqM); Albumin 5.3 g/dL (3.5-5.0); Alkaline Phosphatase 151 U/L (38-126); Amylase 81 U/L (30-110); Anion Gap 35 mmol/L; Blood Urea Nitrogen 28 mg/dL (9-20); Calcium 10.5 mg/dL (8.4-10.2); Chloride 84 mmol/L (98-107); Creatine Kinase 138 U/L (55-170); Lipase 34 U/L (23-300); Magnesium 1.6 mg/dL (1.6-2.3); Non-African American GFR(CKD) 61 (>60 ml/min/1.73 sqM); Potassium 5.6 mmol/L (3.5-5.1); Sodium 127 mmol/L (137-145); Total Bilirubin 1.4 mg/dL (0.2-1.3); Total Protein 8.2 g/dL (6.3-8.2)
[2021-02-13 09:59] LABS: Glucose 892 mg/dL (74-99)
[2021-02-13 10:00] LABS: Carbon Dioxide 8 mmol/L (22-30)
[2021-02-13] MEDS ORDERED: fentaNYL (PF) 50 MCG/ML 2 ML AMP IV STA ×2 (10:20→13:28)
[2021-02-13] MEDS ORDERED: INSULIN REGULAR 100 UNIT/ML VIAL IV ONE (10:21)
--- NOTE | 2021-02-13 11:13 | XR ---
EXAMINATION TYPE: XR chest 2V DATE OF EXAM: 02/13/2021 COMPARISON: Chest x-ray October 06, 2018 HISTORY: Shortness of breath TECHNIQUE: Frontal and lateral views of the chest are obtained. FINDINGS: There is no suspicious new focal air space opacity, pleural effusion, or pneumothorax seen . The cardiac silhouette size remains within normal limits. The osseous structures are intact. IMPRESSION: No acute cardiopulmonary process. No significant change from prior.
--- NOTE | 2021-02-13 11:17 | XR ---
KUB HISTORY: Nausea vomiting and pain Frontal KUB and 2 images, comparison prior exam 09/16/2018, CT 10/07/2018 and 09/16/2018 There are surgical clips in the right upper quadrant. No evident bowel obstruction or pneumoperitoneu m. There is a slight spinal curvature. No pathologic calcification evident. Within the left ilium the re is a sclerotic focus with central lucency similar to prior exam, stable from prior, likely 9. IMPRESSION: Nonobstructive bowel gas pattern.
[2021-02-13] MEDS ORDERED: MAG HYDROX/AL HYDROX/SIMETH 30 ML, HYOSCYAMINE ELIXIR 10 ML PO STA ×2 (12:02)
[2021-02-13] MEDS ORDERED: Magnesium Replacement Protocol 1 EACH MISC MISCELLANE PRN (12:04)
[2021-02-13] MEDS ORDERED: INSULIN REGULAR BOLUS (FROM DRIP BAG) IV ONE (12:04)
[2021-02-13] MEDS ORDERED: Potassium Replacement Protocol 1 EACH MISC MISCELLANE PRN (12:04)
[2021-02-13] MEDS ORDERED: ACETAMINOPHEN TAB 325 MG TAB PO PRN (12:06)
[2021-02-13] MEDS ORDERED: INSULIN REGULAR 100 UNIT in SODIUM CHLORIDE 0.9% 100 ML IV SCH (12:15)
[2021-02-13] MEDS: SODIUM CHLORIDE 0.9% 1,000 ML IV SCH ×6 (12:40→19:55)
[2021-02-13] MEDS: PANTOPRAZOLE 40 MG/10 ML VIAL IVP SCH (12:40)
[2021-02-13] MEDS: INSULIN REGULAR 100 UNIT in SODIUM CHLORIDE 0.9% 100 ML IV SCH ×2 (13:10→20:56)
[2021-02-13] MEDS: ONDANSETRON 4 MG/2 ML VIAL IVP PRN ×2 (13:30→17:24)
[2021-02-13 13:40] LABS: Glucose,Whole Blood 526 mg/dL (75-99)
[2021-02-13 13:41] LABS: Appearance,Urine Clear (Clear); Bilirubin,Urine Negative (Negative); Blood,Urine Negative (Negative); Color,Urine Colorless; Glucose,Urine (UA) 4+ (Negative); Leukocyte Esterase,Urine Negative (Negative); Nitrite,Urine Negative (Negative); Protein,Urine Negative (Negative); Specific Gravity,Urine 1.023 (1.001-1.035); Urobilinogen,Urine <2.0 mg/dL (<2.0)
[2021-02-13 13:51] LABS: Ketones,Urine 4+ (Negative)
[2021-02-13] MEDS ORDERED: MAGNESIUM SULFATE-D5W PMX 1 GM in DEXTROSE/WATER 1 100ML.BAG IVPB ONE ×2 (13:52→15:57)
[2021-02-13 14:06] LABS: Glucose,Whole Blood 440 mg/dL (75-99)
[2021-02-13] MEDS ORDERED: ZOLPIDEM 5 MG TAB PO PRN (15:00)
[2021-02-13 15:03] LABS: Glucose,Whole Blood 399 mg/dL (75-99)
--- NOTE | 2021-02-13 15:18 | P.HPIM ---
History of Present Illness H&P Date: 02/13/21 Chief Complaint: Nausea and vomiting This is a 35-year-old male with past medical history significant for type 1 diabetes that presented to the emergency room with worsening nausea, vomiting, and abdominal pain. Patient said that he is very compliant with his insulin regimen and his blood glucose was running within acceptable range up until last night when he noted that his blood glucose before bedtime was 185. Patient said he went to sleep and woke up in the middle of the night with worsening nausea and vomiting and was unable to keep anything down. He said that he felt like DKA to him as he had recurrent episodes of DKA most recently 3 weeks ago where he was hospitalized in [facility]. Patient presented to the emergency room and was found to have an initial blood glucose and 800 range. He was clearly acidotic with an elevated anion gap. Patient was started on IV insulin drip and aggressive IV fluid hydration and will be admitted to the hospital for further management. Patient was seen by me in the ER. He told me that he is taking Suboxone and has a history of drug use. He denies any drug use recently. He denies alcohol use. He said that he is distinct down from [place] to see his sister. He does not have his Suboxone with him. Review of Systems Review of system: 14 points review of systems were obtained and were negative except to what were mentioned in the HPI. Past Medical History Past Medical History: Diabetes Mellitus, GERD/Reflux Additional Past Medical History / Comment(s): type 1, congenital pelvic right kidney, hx of renal calculi History of Any Multi-Drug Resistant Organisms: None Reported Past Surgical History: Cholecystectomy, Orthopedic Surgery Additional Past Surgical History / Comment(s): left knee x6(titanuim screws), egd w/ bx(done 06-14-17), 09-19-18 cystoscopy with left retrograde pyelogram Past Anesthesia/Blood Transfusion Reactions: No Reported Reaction Past Psychological History: No Psychological Hx Reported Smoking Status: Current some day smoker Past Alcohol Use History: None Reported Past Drug Use History: Cocaine, Marijuana, Opiates - Past Family History Sister(s) Family Medical History: Cancer Brother(s) Family Medical History: Cancer Mother Family Medical History: Hyperlipidemia Father Family Medical History: Coronary Artery Disease (CAD) Additional Family Medical History / Comment(s): hx cabg, mental illness- committed suicide Medications and Allergies Home Medications Medication Instructions Recorded Confirmed Type Insulin Glargine,Hum.rec.anlog 30 unit SQ BID 02/13/21 02/13/21 History [Lantus Solostar] Insulin Regular, Human [NovoLIN R] See Protocol SQ ACHS 02/13/21 02/13/21 History Metoclopramide [Reglan] 10 mg PO BID 02/13/21 02/13/21 History Pantoprazole Sodium 40 mg PO BID 02/13/21 02/13/21 History Promethazine HCl 25 mg PO BID PRN 02/13/21 02/13/21 History Allergies Allergy/AdvReac Type Severity Reaction Status Date / Time codeine Allergy Rash/Hives Verified 02/13/21 10:41 [From Tylenol-Codeine #3] morphine Allergy Rash/Hives Verified 02/13/21 10:41 rofecoxib [From Vioxx] AdvReac DIZZINESS Verified 02/13/21 10:41 tramadol AdvReac Nausea & Verified 02/13/21 10:41 Vomiting Physical Exam Vitals: Vital Signs Temp Pulse Resp BP Pulse Ox 02/13/21 15:00 112 H 18 100 02/13/21 14:00 115 H 18 151/91 100 02/13/21 13:00 105 H 18 146/91 100 02/13/21 12:00 102 H 18 155/97 100 02/13/21 11:00 107 H 18 153/85 100 02/13/21 10:00 109 H 18 158/96 100 02/13/21 09:00 18 02/13/21 08:06 18 02/13/21 07:04 98.6 F 120 H 22 148/94 99 Intake and Output 02/13/21 02/13/21 02/13/21 06:59 14:59 22:59 Other: Weight 83.915 kg Results CBC & Chem 7: 02/13/21 09:22 02/13/21 09:22 Labs: Abnormal Lab Results - Last 24 Hours (Table) 02/13/21 02/13/21 02/13/21 Range/Units 07:09 09:22 09:22 WBC 24.8 H (3.8-10.6) k/uL MCHC 30.8 L (31.0-37.0) g/dL Neutrophils # 21.5 H (1.3-7.7) k/uL Monocytes # 1.4 H (0-1.0) k/uL Sodium 127 L (137-145) mmol/L Potassium 5.6 H (3.5-5.1) mmol/L Chloride 84 L (98-107) mmol/L Carbon Dioxide 8 L* (22-30) mmol/L BUN 28 H (9-20) mg/dL Creatinine 1.47 H (0.66-1.25) mg/dL Glucose 892 H* (74-99) mg/dL POC Glucose (mg/dL) >600 H (75-99) mg/dL Plasma Lactic Acid Micheal (0.7-2.0) mmol/L Calcium 10.5 H (8.4-10.2) mg/dL Total Bilirubin 1.4 H (0.2-1.3) mg/dL Alkaline Phosphatase 151 H (38-126) U/L Albumin 5.3 H (3.5-5.0) g/dL Urine Glucose (UA) (Negative) Urine Ketones (Negative) 02/13/21 02/13/21 02/13/21 Range/Units 09:22 13:04 13:09 WBC (3.8-10.6) k/uL MCHC (31.0-37.0) g/dL Neutrophils # (1.3-7.7) k/uL Monocytes # (0-1.0) k/uL Sodium (137-145) mmol/L Potassium (3.5-5.1) mmol/L Chloride (98-107) mmol/L Carbon Dioxide (22-30) mmol/L BUN (9-20) mg/dL Creatinine (0.66-1.25) mg/dL Glucose (74-99) mg/dL POC Glucose (mg/dL) (75-99) mg/dL Plasma Lactic Acid Micheal 4.6 H* 2.8 H* (0.7-2.0) mmol/L Calcium (8.4-10.2) mg/dL Total Bilirubin (0.2-1.3) mg/dL Alkaline Phosphatase (38-126) U/L Albumin (3.5-5.0) g/dL Urine Glucose (UA) 4+ H (Negative) Urine Ketones 4+ H (Negative) 02/13/21 02/13/21 02/13/21 Range/Units 13:38 14:01 15:00 WBC (3.8-10.6) k/uL MCHC (31.0-37.0) g/dL Neutrophils # (1.3-7.7) k/uL Monocytes # (0-1.0) k/uL Sodium (137-145) mmol/L Potassium (3.5-5.1) mmol/L Chloride (98-107) mmol/L Carbon Dioxide (22-30) mmol/L BUN (9-20) mg/dL Creatinine (0.66-1.25) mg/dL Glucose (74-99) mg/dL POC Glucose (mg/dL) 526 H 440 H 399 H (75-99) mg/dL Plasma Lactic Acid Micheal (0.7-2.0) mmol/L Calcium (8.4-10.2) mg/dL Total Bilirubin (0.2-1.3) mg/dL Alkaline Phosphatase (38-126) U/L Albumin (3.5-5.0) g/dL Urine Glucose (UA) (Negative) Urine Ketones (Negative) Assessment and Plan Assessment: This is a 35-year-old male with past medical history noted below presented to the emergency room with nausea, vomiting, and abdominal pain. Patient was evaluated in the ER and admitted to the hospital for further management of his medical problems noted below. 1. Diabetic ketoacidosis 2. High anion gap metabolic acidosis 3. Hypovolemic hyponatremia 4. Hyperkalemia 5. Nausea and vomiting 6. Uncontrolled type 1 diabetes 7. History of opiate abuse currently on Suboxone Today, I reviewed his medication list and lab work results. Continue IV insulin drip per DKA protocol. Aggressive IV fluid hydration. Electrolytes every 4 hours. Check A1c. Urinalysis unremarkable. Exact trigger unclear for DKA, suspect medication noncompliance. We will continue to monitor closely. Repeat lab work in the morning.
[2021-02-13 16:10] LABS: Glucose,Whole Blood 284 mg/dL (75-99)
[2021-02-13 16:30] LABS: VBG PH 7.52 (7.31-7.41)
[2021-02-13 16:42] LABS: Phosphorus 2.9 mg/dL (2.5-4.5); Potassium 5.2 mmol/L (3.5-5.1)
[2021-02-13 17:08] LABS: Glucose,Whole Blood 209 mg/dL (75-99)
[2021-02-13] MEDS: D5-0.45% NACL WITH KCL 20MEQ/L 1,000 ML IV SCH ×2 (17:28→23:58)
[2021-02-13 18:39] LABS: Glucose,Whole Blood 190 mg/dL (75-99)
[2021-02-13 19:49] LABS: Glucose,Whole Blood 164 mg/dL (75-99)
[2021-02-13] MEDS ORDERED: LORazepam 2 MG/ML INJ IV STA (20:34)
[2021-02-13 20:37] LABS: Glucose,Whole Blood 127 mg/dL (75-99)
[2021-02-13 21:20] LABS: Glucose,Whole Blood 117 mg/dL (75-99)
[2021-02-13 21:32] LABS: African American GFR (CKD) >90 (>60 ml/min/1.73 sqM); Anion Gap 13 mmol/L; Blood Urea Nitrogen 26 mg/dL (9-20); Carbon Dioxide 22 mmol/L (22-30); Chloride 101 mmol/L (98-107); Glucose 113 mg/dL (74-99); Non-African American GFR(CKD) 87 (>60 ml/min/1.73 sqM); Phosphorus 1.7 mg/dL (2.5-4.5); Potassium 4.4 mmol/L (3.5-5.1); Sodium 136 mmol/L (137-145)
[2021-02-13 21:56] LABS: Glucose,Whole Blood 114 mg/dL (75-99)
[2021-02-13 22:53] LABS: Glucose,Whole Blood 180 mg/dL (75-99)
[2021-02-14 00:04] LABS: Glucose,Whole Blood 229 mg/dL (75-99)
[2021-02-14 01:05] LABS: Glucose,Whole Blood 273 mg/dL (75-99)
[2021-02-14] MEDS: ONDANSETRON 4 MG/2 ML VIAL IVP PRN ×2 (01:41→08:49)
[2021-02-14 01:53] LABS: Hemoglobin A1C 8.3 % (4.0-6.0)
[2021-02-14 02:03] LABS: Glucose,Whole Blood 292 mg/dL (75-99)
[2021-02-14 02:13] LABS: African American GFR (CKD) >90 (>60 ml/min/1.73 sqM); Anion Gap 13 mmol/L; Blood Urea Nitrogen 23 mg/dL (9-20); Calcium 9.2 mg/dL (8.4-10.2); Carbon Dioxide 21 mmol/L (22-30); Chloride 100 mmol/L (98-107); Glucose 300 mg/dL (74-99); Non-African American GFR(CKD) >90 (>60 ml/min/1.73 sqM); Potassium 4.7 mmol/L (3.5-5.1); Sodium 134 mmol/L (137-145)
[2021-02-14] MEDS: SODIUM CHLORIDE 0.9% 1,000 ML IV SCH ×2 (05:03)
[2021-02-14] MEDS ORDERED: INSULIN DETEMIR (LEVEMIR) 100 UNIT/ML SYR SQ SCH ×2 (07:33→21:00)
[2021-02-14 08:17] LABS: Glucose,Whole Blood 189 mg/dL (75-99)
[2021-02-14 08:17] LABS: Glucose,Whole Blood 224 mg/dL (75-99)
[2021-02-14 08:17] LABS: Glucose,Whole Blood 217 mg/dL (75-99)
[2021-02-14 08:17] LABS: Glucose,Whole Blood 277 mg/dL (75-99)
[2021-02-14 08:19] LABS: Glucose,Whole Blood 127 mg/dL (75-99)
[2021-02-14 08:19] LABS: Glucose,Whole Blood 151 mg/dL (75-99)
[2021-02-14] MEDS: D5-0.45% NACL WITH KCL 20MEQ/L 1,000 ML IV SCH (08:42)
[2021-02-14] MEDS: ENOXAPARIN 40 MG/0.4 ML SYRINGE SQ SCH ×2 (08:49→09:21)
[2021-02-14] MEDS: PANTOPRAZOLE 40 MG/10 ML VIAL IVP SCH (08:49)
[2021-02-14] MEDS ORDERED: cloNIDine HCL 0.2 MG TAB PO STA (08:58)
[2021-02-14] MEDS ORDERED: PROCHLORPERAZINE INJ 10 MG/2 ML VIAL IVP STA (10:00)
[2021-02-14 11:41] VITALS: BMI 24.7
[2021-02-14 11:52] LABS: Glucose,Whole Blood 127 mg/dL (75-99)
[2021-02-14 11:58] VITALS: BP 113/66; PULSE 90; RESP 22; TEMP 98.4
[2021-02-14] MEDS ORDERED: INSULIN ASPART (NovoLOG) 100 UNIT/ML VIAL SQ SCH ×2 (12:30)
[2021-02-14] MEDS ORDERED: MAG HYDROX/AL HYDROX/SIMETH 30 ML CUP PO SCH (13:00)
[2021-02-14 14:47] LABS: African American GFR (CKD) >90 (>60 ml/min/1.73 sqM); Anion Gap 9 mmol/L; Blood Urea Nitrogen 14 mg/dL (9-20); Calcium 9.5 mg/dL (8.4-10.2); Carbon Dioxide 25 mmol/L (22-30); Chloride 102 mmol/L (98-107); Glucose 118 mg/dL (74-99); Non-African American GFR(CKD) >90 (>60 ml/min/1.73 sqM); Potassium 4.2 mmol/L (3.5-5.1); Sodium 136 mmol/L (137-145)
--- NOTE | 2021-02-14 14:59 | P.DS ---
Providers Date of admission: 02/13/21 12:27 Expected date of discharge: 02/14/21 Attending physician: Darwin Leger Primary care physician: Stated None Hospital Course: This is a 35-year-old male with past medical history noted below presented to the emergency room with nausea, vomiting, and abdominal pain. Patient was evaluated in the ER and admitted to the hospital for further management of his medical problems noted below. 1. Diabetic ketoacidosis 2. High anion gap metabolic acidosis 3. Hypovolemic hyponatremia 4. Hyperkalemia 5. Nausea and vomiting 6. Uncontrolled type 1 diabetes 7. History of opiate abuse currently on Suboxone Patient was admitted to the hospital and treated with aggressive IV fluid hydration and IV insulin drip per DKA protocol. His lab work improved significantly. Anion gap closed. He was transitioned to subcutaneous insulin. He was able to tolerate by mouth intake with no difficulty. A1c 8.3. Counseled regarding compliance with insulin. Throughout this hospitalization, patient exhibited IV pain medication seeking behavior. He frequently requested IV pain medication and IV Phenergan. He did not have his Suboxone supply with him but was offered clonidine for withdrawal symptoms. He was counseled extensively to follow-up with his Suboxone prescribing provider as directed. Patient Condition at Discharge: Fair Plan - Discharge Summary Discharge Rx Participant: No New Discharge Prescriptions: Continue Insulin Glargine,Hum.rec.anlog [Lantus Solostar] 30 unit SQ BID Promethazine HCl 25 mg PO BID PRN PRN Reason: Nausea And Vomiting Insulin Regular, Human [NovoLIN R] See Protocol SQ ACHS Pantoprazole Sodium 40 mg PO BID Metoclopramide [Reglan] 10 mg PO BID Buprenorphine HCl/Naloxone HCl [Suboxone 8 mg-2 mg Sl Film] 1 film SUBLINGUAL TID Discharge Medication List Buprenorphine HCl/Naloxone HCl [Suboxone 8 mg-2 mg Sl Film] 1 film SUBLINGUAL TID 02/13/21 [History] Insulin Glargine,Hum.rec.anlog [Lantus Solostar] 30 unit SQ BID 02/13/21 [History] Insulin Regular, Human [NovoLIN R] See Protocol SQ ACHS 02/13/21 [History] Metoclopramide [Reglan] 10 mg PO BID 02/13/21 [History] Pantoprazole Sodium 40 mg PO BID 02/13/21 [History] Promethazine HCl 25 mg PO BID PRN 02/13/21 [History] Follow up Appointment(s)/Referral(s): None,Stated [Primary Care Provider] - 1-2 days Discharge Disposition: HOME SELF-CARE
[2021-02-15] MEDS ORDERED: PANTOPRAZOLE 40 MG TABLET PO SCH (07:30)
== END 2021-02-14 15:57 | disposition home or self-care (01) | DRG 638 ==
LOC: EC 06:58 → 3SCARD 12:27
PROVIDERS: ADMIT Internal Medicine; ATTEND Internal Medicine
PROC: 05HC33Z Insertion of Infusion Device into Left Basilic Vein, Percutaneous Approach (ICD-10-PCS; principal; 2021-02-13 14:55)
DX: E10.10 Type 1 diabetes mellitus with ketoacidosis without coma (principal); E87.1 Hypo-osmolality and hyponatremia; E86.0 Dehydration; E86.1 Hypovolemia; E87.5 Hyperkalemia; F17.210 Nicotine dependence, cigarettes, uncomplicated; K29.70 Gastritis, unspecified, without bleeding; R62.7 Adult failure to thrive; Z76.5 Malingerer [conscious simulation]; Z79.4 Long term (current) use of insulin; Z82.49 Family history of ischemic heart disease and other diseases of the circulatory system; Z87.442 Personal history of urinary calculi; F11.10 Opioid abuse, uncomplicated; F14.11 Cocaine abuse, in remission; F12.11 Cannabis abuse, in remission; Z53.09 Procedure and treatment not carried out because of other contraindication; Z90.49 Acquired absence of other specified parts of digestive tract; Z20.822 Contact with and (suspected) exposure to COVID-19; Z81.8 Family history of other mental and behavioral disorders; R11.2 Nausea with vomiting, unspecified; K21.9 Gastro-esophageal reflux disease without esophagitis; Z88.5 Allergy status to narcotic agent; Z88.8 Allergy status to other drugs, medicaments and biological substances; Z79.899 Other long term (current) drug therapy
CPT/HCPCS: 36410; 36415; 71046; 74018; 76937; 80048; 80051; 80053; 81003; 82009; 82150; 82550; 82565; 82803; 82947; 83036; 83605; 83690; 83735; 84100; 84484; 84520; 85025; 87636; 93005; 96361; 96372; 96374; 96375; 99285